=== PATIENT | female | born 1995 | race Caucasian/White ===

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

== ENCOUNTER 2020-12-18 14:01 | Emergency (ER) | payer OTHER ==
[2020-12-18 15:00] VITALS: BP 122/74; PULSE 61; RESP 16; TEMP 98.6
[2020-12-18] MEDS ORDERED: MORPHINE SULFATE 4 MG/ML SYRINGE IV STA (16:01)
[2020-12-18] MEDS ORDERED: ONDANSETRON 4 MG/2 ML VIAL IVP STA (16:01)
[2020-12-18] MEDS ORDERED: diphenhydrAMINE 50 MG/ML 1 ML VIAL IVP STA (16:01)
[2020-12-18] MEDS ORDERED: SODIUM CHLORIDE 0.9% 500 ML 500 ML IV STA (16:01)
--- NOTE | 2020-12-18 17:06 | ED ---
Headache HPI - General Chief Complaint: Headache Stated Complaint: Headache,R Arm/Face Numbness Time Seen by Provider: 12/18/20 15:53 Source: RN notes reviewed Mode of arrival: ambulatory Limitations: no limitations - History of Present Illness Initial Comments: Patient is a 25-year-old female that presents to emergency room complaining of migraine type headache. She notes that she has a history of chronic migraines. She notes she is a take Tylenol and alleviate symptoms and pain. She notes that that is not case this time. She notes that she's tried taking Tylenol with no relief. She notes that the pain is approximate 7-8 out of 10 with no relief. She notes that light makes the headache worse. She was otherwise a well- appearing 22-year-old female that her distress. She denied chest pain shortness of breath nausea vomiting diarrhea constipation fever fatigue chills. - Related Data Home Medications Medication Instructions Recorded Confirmed Acetaminophen Tab [Tylenol Tab] 1,000 mg PO Q6HR PRN 12/18/20 12/18/20 Allergies Allergy/AdvReac Type Severity Reaction Status Date / Time banana Allergy Rash/Hives Verified 12/18/20 16:53 carrot Allergy Anaphylaxis Verified 12/18/20 16:53 egg Allergy Rash/Hives Verified 12/18/20 16:53 milk Allergy Rash/Hives Verified 12/18/20 16:53 parsley Allergy Anaphylaxis Verified 12/18/20 16:53 walnut Allergy Rash/Hives Verified 12/18/20 16:53 Review of Systems ROS Statement: Those systems with pertinent positive or pertinent negative responses have been documented in the HPI. ROS Other: All systems not noted in ROS Statement are negative. Past Medical History Past Medical History: Asthma, Pneumonia, Seizure Disorder Additional Past Medical History / Comment(s): pt states she had a seizure x 1 year ago. History of Any Multi-Drug Resistant Organisms: None Reported Past Surgical History: No Surgical Hx Reported Past Anesthesia/Blood Transfusion Reactions: No Reported Reaction Past Psychological History: No Psychological Hx Reported Past Alcohol Use History: None Reported Past Drug Use History: None Reported - Past Family History Mother Family Medical History: No Reported History Additional Family Medical History / Comment(s): Migranes Father Family Medical History: Diabetes Mellitus, Hypertension Additional Family Medical History / Comment(s): Neuropathy General Exam Limitations: no limitations General appearance: alert, in no apparent distress, obese Head exam: Present: atraumatic, normocephalic, normal inspection Eye exam: Present: normal appearance, PERRL, EOMI. Absent: scleral icterus, conjunctival injection, periorbital swelling ENT exam: Present: normal exam, mucous membranes moist Neck exam: Present: normal inspection Respiratory exam: Present: normal lung sounds bilaterally. Absent: respiratory distress, wheezes, rales, rhonchi, stridor Cardiovascular Exam: Present: regular rate, normal rhythm, normal heart sounds. Absent: systolic murmur, diastolic murmur, rubs, gallop, clicks Extremities exam: Present: normal inspection, full ROM, normal capillary refill. Absent: tenderness, pedal edema, joint swelling, calf tenderness Neurological exam: Present: alert, oriented X3 Psychiatric exam: Present: normal affect, normal mood Skin exam: Present: warm, dry, intact, normal color. Absent: rash Course Vital Signs 12/18/20 14:57 Temperature 98.6 F Pulse Rate 61 Respiratory 16 Rate Blood Pressure 122/74 O2 Sat by Pulse 100 Oximetry Medical Decision Making - Medical Decision Making 22-year-old female complaining of chronic migraine headache with no relief from at home medications. 500 mL normal saline, 4 g Zofran, 50 mg of Benadryl, 4 mg of morphine ordered. Upon reevaluation patient states her headache is gone and she is need to go home. Case discussed with Dr. Kellogg, patient discharge home. Disposition Clinical Impression: Migraine headache Disposition: HOME SELF-CARE Condition: Stable Instructions (If sedation given, give patient instructions): Acute Headache (ED) Additional Instructions: Please return to the Emergency Department if symptoms worsen or any other concerns. Follow-up with primary care 1-2 days. Continue take at home medications as prescribed. Is patient prescribed a controlled substance at d/c from ED?: No Referrals: Breonna Augustin MD [Primary Care Provider] - 1-2 days Time of Disposition: 17:05
== END 2020-12-18 17:21 | disposition home or self-care (01) ==
LOC: EC 14:01
DX: G43.909 Migraine, unspecified, not intractable, without status migrainosus (principal); J45.909 Unspecified asthma, uncomplicated; E66.9 Obesity, unspecified; Z82.49 Family history of ischemic heart disease and other diseases of the circulatory system; Z83.3 Family history of diabetes mellitus; Z68.39 Body mass index [BMI] 39.0-39.9, adult
CPT/HCPCS: 96374; 96375 ×2; 96361; 99283; J2270; J1200; J2405

== ENCOUNTER 2022-03-26 17:57 | Emergency (ER) | payer OTHER ==
[2022-03-26 18:26] VITALS: TEMP 98.4
--- NOTE | 2022-03-26 18:28 | ED ---
Female Urogenital HPI - General Source: patient, RN notes reviewed Mode of arrival: ambulatory Limitations: no limitations - History of Present Illness MD Complaint: dysuria <Ally Feliciano - Last Filed: 03/26/22 18:24> <Anu Barajas - Last Filed: 03/27/22 03:14> - General Stated complaint: UTI, IUD Problems Time Seen by Provider: 03/26/22 18:24 - History of Present Illness Initial comments: This is a 26 year old female who presents to the emergency departments with concerns related to her IUD and a UTI. She has a paraguard IUD that was placed 5 years ago. States that over the last week, she has started to feel the IUD moving around. She has not had any problems with this until the last week. Also reports 2 days of burning with urination and is concerned that she may have a UTI. (Ally Feliciano) - Related Data Home Medications Medication Instructions Recorded Confirmed Acetaminophen Tab [Tylenol Tab] 1,000 mg PO Q6HR PRN 12/18/20 04/26/21 Rizatriptan Benzoate [Maxalt] 10 mg PO BID PRN 04/26/21 04/26/21 Previous Rx's Medication Instructions Recorded Cephalexin [Keflex] 500 mg PO Q12HR 7 Days #14 cap 03/26/22 Allergies Allergy/AdvReac Type Severity Reaction Status Date / Time banana Allergy Rash/Hives Verified 03/26/22 18:26 carrot Allergy Anaphylaxis Verified 03/26/22 18:26 egg Allergy Rash/Hives Verified 03/26/22 18:26 milk Allergy Rash/Hives Verified 03/26/22 18:26 parsley Allergy Anaphylaxis Verified 03/26/22 18:26 walnut Allergy Rash/Hives Verified 03/26/22 18:26 Review of Systems ROS Other: All systems not noted in ROS Statement are negative. <Ally Feliciano - Last Filed: 03/26/22 18:24> ROS Other: All systems not noted in ROS Statement are negative. <Anu Barajas - Last Filed: 03/27/22 03:14> ROS Statement: Those systems with pertinent positive or pertinent negative responses have been documented in the HPI. Past Medical History Past Medical History: Asthma, Pneumonia, Seizure Disorder Additional Past Medical History / Comment(s): pt states she had a seizure x 1 year ago. History of Any Multi-Drug Resistant Organisms: None Reported Past Surgical History: No Surgical Hx Reported Past Anesthesia/Blood Transfusion Reactions: No Reported Reaction Past Psychological History: No Psychological Hx Reported Smoking Status: Current every day smoker Past Alcohol Use History: None Reported Past Drug Use History: None Reported - Past Family History Mother Family Medical History: No Reported History Additional Family Medical History / Comment(s): Migranes Father Family Medical History: Diabetes Mellitus, Hypertension Additional Family Medical History / Comment(s): Neuropathy <Ally Feliciano - Last Filed: 03/26/22 18:24> General Exam Limitations: no limitations General appearance: alert, in no apparent distress Head exam: Present: atraumatic, normocephalic, normal inspection Eye exam: Present: normal appearance ENT exam: Present: normal exam, TM's normal bilaterally Neck exam: Present: normal inspection Respiratory exam: Present: normal lung sounds bilaterally. Absent: respiratory distress, wheezes, rales, rhonchi, stridor Cardiovascular Exam: Present: regular rate, normal rhythm, normal heart sounds. Absent: systolic murmur, diastolic murmur, rubs, gallop, clicks GI/Abdominal exam: Present: soft. Absent: distended, tenderness, guarding, rebound, rigid External exam: Present: other (Patient declined pelvic exam) Neurological exam: Present: alert, oriented X3, CN II-XII intact Psychiatric exam: Present: normal affect, normal mood Skin exam: Present: warm, dry, intact, normal color. Absent: rash <Anu Barajas - Last Filed: 03/27/22 03:14> Course Vital Signs 03/26/22 03/26/22 18:24 21:23 Temperature 98.4 F Pulse Rate 80 72 Respiratory 20 18 Rate Blood Pressure 139/92 122/68 O2 Sat by Pulse 98 98 Oximetry Medical Decision Making <Anu Barajas - Last Filed: 03/27/22 03:14> - Medical Decision Making Was pt. sent in by a medical professional or institution (, PA, STENOTYPIST, urgent care, hospital, or usp...) When possible be specific @ -[No] Did you speak to anyone other than the patient for history (EMS, parent, family, police, friend...)? What history was obtained from this source @ -[No] Did you review nursing and triage notes (agree or disagree)? Why? @ -[I reviewed and agree with nursing and triage notes] Were old charts reviewed (outside hosp., previous admission, EMS record, old EKG, old radiological studies, urgent care reports/EKG's, usp records)? Report findings @ -[No old charts were reviewed] Differential Diagnosis (chest pain, altered mental status, abdominal pain women, abdominal pain men, vaginal bleeding, weakness, fever, dyspnea, syncope, headache, dizziness, GI bleed, back pain, seizure, CVA, palpatations, mental health)? @ -Differential includes UTI, interstitial cystitis, PID, menstrual cramps EKG interpreted by me (3pts min.). @ -[As above] X-rays interpreted by me (1pt min.). @ -[None done] CT interpreted by me (1pt min.). @ -[None done] U/S interpreted by me (1pt. min.). @ -No, radiologist report is reviewed. IUD appears to be in low position within the uterus. Complex right ovarian follicle Ollie representing a involuting/hemorrhagic follicle. What testing was considered but not performed or refused? (CT, X-rays, U/S, labs)? Why? @ -[None] What meds were considered but not given or refused? Why? @ -[None] Did you discuss the management of the patient with other professionals (professionals i.e. , PA, STENOTYPIST, lab, RT, psych nurse, social media coordinator, diesel mechanic, te acher, risk officer, case packer and sealer)? Give summary @ -[No] Was smoking cessation discussed for >3mins.? @ -[No] Was critical care preformed (if so, how long)? @ -[No] Were there social determinants of health that impacted care today? How? (Homelessness, low income, unemployed, alcoholism, drug addiction, transportation, low edu. Level, literacy, decrease access to med. care, custodial, rehab)? @ -[No] Was there de-escalation of care discussed even if they declined (Discuss DNR or withdrawal of care, Hospice)? DNR status @ -[No] What co-morbidities impacted this encounter? (DM, HTN, Smoking, COPD, CAD, Cancer, CVA, ARF, Chemo, Hep., AIDS, mental health diagnosis, sleep apnea, morbid obesity)? @ -[None] Was patient admitted / discharged? Hospital course, mention meds given and route, prescriptions, significant lab abnormalities, going to OR and other pertinent info. @ -Patient is a 26-year-old female presenting with chief complaint of dysuria and concerns for her IUD. Patient reports 2 days of dysuria. She also states over the last week she has felt as though her IUD is moving, she has had a ParaGard IUD in place for the last 5 years. She is currently on her menstrual cycle. Physical examination is unremarkable. Patient declined pelvic exam. Urine shows blood as patient is on her menstrual cycle. There are WBCs, may be contaminated. Since patient is having symptoms we will treat with Keflex and sent for culture. HCG is negative. Transvaginal ultrasound shows that IUD is in low position within the uterus and close to the cervix. Patient is educated on these findings. She is instructed to follow-up with her [facility] Dr. Alfred. Prescription for Keflex sent to pharmacy. Discharged home. Follow-up with PCP. Report back to ER with any new or worsening symptoms. Discussed return parameters and answered all questions. Patient conveyed verbal understanding and agreed to the plan. I discussed this case in detail with my attending Dr. Montoya Undiagnosed new problem with uncertain prognosis? @ -[No] Drug Therapy requiring intensive monitoring for toxicity (Heparin, Nitro, Insulin, Cardizem)? @ -[No] Were any procedures done? @ -[No] Diagnosis/symptom? @ -UTI Acute, or Chronic, or Acute on Chronic? @ -Acute Uncomplicated (without systemic symptoms) or Complicated (systemic symptoms)? @ -Uncomplicated Side effects of treatment? @ -[No] Exacerbation, Progression, or Severe Exacerbation? @ -[No] Poses a threat to life or bodily function? How? (Chest pain, [place], [place], pneumonia, PE, COPD, DKA, ARF, appy, cholecystitis, CVA, Diverticulitis, Homicidal, Suicidal, threat to staff... and all critical care pts) @ -[No] (Anu Barajas) - Lab Data Lab Results 03/26/22 03/26/22 Range/Units 18:38 18:38 Urine Color Red Urine Appearance Bloody H (Clear) Urine RBC >182 H (0-5) /hpf Urine WBC >182 H (0-5) /hpf Urine WBC Clumps Many H (None) /hpf Ur Squamous Epith Cells 18 H (0-4) /hpf Urine Bacteria Occasional H (None) /hpf Urine HCG, Qual Not Detected (Not Detectd) Disposition <Ally Feliciano - Last Filed: 03/26/22 18:24> Is patient prescribed a controlled substance at d/c from ED?: No Time of Disposition: 21:16 <Anu Barajas - Last Filed: 03/27/22 03:14> Clinical Impression: UTI (urinary tract infection) Disposition: HOME SELF-CARE Condition: Good Instructions (If sedation given, give patient instructions): Intrauterine Device (DC) Additional Instructions: Follow up with [facility]. Report back to ER with any new or worsening symptoms. Take medication as prescribed. Prescriptions: Cephalexin [Keflex] 500 mg PO Q12HR 7 Days #14 cap Referrals: Breonna Augustin MD [Primary Care Provider] - 1-2 days Fozia Alfred DO [Doctor of Osteopathic Medicine] - 1-2 days
[2022-03-26 19:03] LABS: Appearance,Urine Bloody (Clear); Color,Urine Red
[2022-03-26 19:04] LABS: Bacteria,Urine Occasional /hpf; RBC,Urine >182 /hpf (0-5); Squamous Epithelial Cell,Urine 18 /hpf (0-4); WBC,Urine >182 /hpf (0-5)
--- NOTE | 2022-03-26 20:56 | US ---
EXAMINATION TYPE: US transvaginal DATE OF EXAM: 03/26/2022 COMPARISON: NONE CLINICAL HISTORY: IUD feels out of place. Pt states she feels like her IUD strings are lower than nor mal. IUD has been placed for about 5 years. TECHNIQUE: . Transvaginal sonographic images of the pelvis were acquired. Date of LMP: Irregular EXAM MEASUREMENTS: Uterus: 9.2 x 5.6 x 4.7 cm Endometrial Stripe: 0.48 cm Right Ovary: 3.5 x 3.1 x 2.3 cm Left Ovary: 3.3 x 2.5 x 2.4 cm 1. Uterus: Anteverted wnl 2. Endometrium: wnl 3. Right Ovary: Complex follicle seen measuring 1.6 x 1.2 x 1.0cm 4. Left Ovary: wnl Spectral, color and waveform doppler imaging shows good arterial and venous flow within the ovaries ; there is no evidence for ovarian torsion. 5. Bilateral Adnexa: wnl 6. Posterior cul-de-sac: Trace amount of fluid IUD appears to be in the lower segment and close to the cervix. IMPRESSION: IUD appears to be in low position within the uterus. Complex right ovarian follicle likely representing a involuting/hemorrhagic follicle.
[2022-03-26] MEDS ORDERED: CEPHALEXIN 500 MG CAP PO STA (21:14)
[2022-03-26 21:25] VITALS: BP 122/68; PULSE 72; RESP 18
== END 2022-03-26 21:25 | disposition home or self-care (01) ==
LOC: EC 17:57
DX: N39.0 Urinary tract infection, site not specified (principal); J45.909 Unspecified asthma, uncomplicated; F17.200 Nicotine dependence, unspecified, uncomplicated; Z91.018 Allergy to other foods
CPT/HCPCS: 76830; 81001; 81025; 87086; 93975; 99284

== ENCOUNTER 2022-06-07 21:58 | Inpatient (IN) | payer MEDICAID, OTHER ==
--- NOTE | 2022-06-07 23:45 | ED ---
Psych HPI - General Chief Complaint: Psychiatric Symptoms Stated Complaint: Mental Health Time Seen by Provider: 06/07/22 22:07 Source: patient, RN notes reviewed Mode of arrival: ambulatory Limitations: no limitations - History of Present Illness Initial Comments: This is a 26-year-old female who presents to the emergency department for psychiatric evaluation. Patient endorses suicidal ideations with a plan that has been present over the last 3 months to one year. Patient states that she has made prior suicide attempts by trying to cut herself and overdosing on ibuprofen and Tylenol. She has not told anyone until recently out of concern for losing her 5-year-old son. Her mom notes that she frequently texts her saying that she can't do this anymore and that she can't go on. When her mom went over to her house today, she pulled out a knife and eluted to the idea of harming herself with it. Patient states that at this point she feels like she cannot take care of herself and does not feel safe going home. Denies any homicidal ideations or auditory/visual hallucinations. Denies any fevers, chills, sore throat, cough, dyspnea, chest pain, palpitations, abdominal pain, nausea, vomiting, diarrhea, back pain, or headaches. MD Complaint: suicidal ideation, feels depressed - Related Data Home Medications Medication Instructions Recorded Confirmed Acetaminophen Tab [Tylenol Tab] 1,000 mg PO Q6HR PRN 12/18/20 04/26/21 Rizatriptan Benzoate [Maxalt] 10 mg PO BID PRN 04/26/21 04/26/21 Previous Rx's Medication Instructions Recorded Cephalexin [Keflex] 500 mg PO Q12HR 7 Days #14 cap 03/26/22 Allergies Allergy/AdvReac Type Severity Reaction Status Date / Time banana Allergy Rash/Hives Verified 06/07/22 22:06 carrot Allergy Anaphylaxis Verified 06/07/22 22:06 egg Allergy Rash/Hives Verified 06/07/22 22:06 milk Allergy Rash/Hives Verified 06/07/22 22:06 parsley Allergy Anaphylaxis Verified 06/07/22 22:06 walnut Allergy Rash/Hives Verified 06/07/22 22:06 Review of Systems ROS Statement: Those systems with pertinent positive or pertinent negative responses have been documented in the HPI. ROS Other: All systems not noted in ROS Statement are negative. Past Medical History Past Medical History: Asthma, Pneumonia, Seizure Disorder Additional Past Medical History / Comment(s): pt states she had a seizure x 1 year ago. History of Any Multi-Drug Resistant Organisms: None Reported Past Surgical History: No Surgical Hx Reported Past Anesthesia/Blood Transfusion Reactions: No Reported Reaction Past Psychological History: Anxiety, Depression Smoking Status: Current every day smoker Past Alcohol Use History: Occasional Past Drug Use History: Marijuana - Past Family History Mother Family Medical History: No Reported History Additional Family Medical History / Comment(s): Migranes Father Family Medical History: Diabetes Mellitus, Hypertension Additional Family Medical History / Comment(s): Neuropathy General Exam Limitations: no limitations General appearance: alert, in no apparent distress Head exam: Present: atraumatic, normocephalic, normal inspection Respiratory exam: Present: normal lung sounds bilaterally. Absent: respiratory distress, wheezes, rales, rhonchi, stridor Cardiovascular Exam: Present: regular rate, normal rhythm, normal heart sounds. Absent: systolic murmur, diastolic murmur, rubs, gallop, clicks Neurological exam: Present: alert, oriented X3, CN II-XII intact Psychiatric exam: Present: depressed, suicidal ideation. Absent: homicidal ideation Skin exam: Present: warm, dry, intact, normal color. Absent: rash Course Vital Signs 06/07/22 22:01 Temperature 97.3 F L Pulse Rate 75 Respiratory 20 Rate Blood Pressure 151/88 O2 Sat by Pulse 99 Oximetry Medical Decision Making - Medical Decision Making This is a 26-year-old female who presents to the emergency department for psychiatric evaluation. Was pt. sent in by a medical professional or institution? @ -No Did you speak to anyone other than the patient for history? @ -Her mother Did you review nursing and triage notes? @ -Yes, and I agree, it is accurate with regards to the patient's symptoms. Were old charts reviewed? @ -No Differential Diagnosis? @ -Differential Mental Health: Depression, anxiety, bipolar, psychosis, schizophrenia, borderline personality, situational depression, adjustment disorder, behavioral disorder, brain tumor, malingering, substance abuse, encephalopathy, medication reaction, dementia, hypothyroidism, degenerative neurologic disorder, lupus.... This is not meant to be all-inclusive list What testing was considered but not performed? (CT, X-rays, U/S, labs)? Why? @ -None What meds were considered but not given? Why? @ -None Did you discuss the management of the patient with other professionals? @ -Yes, EPS, who advises inpatient psychiatric management. Did you reconcile home meds? @ -No Was smoking cessation discussed for >3mins.? @ -No Was critical care preformed (if so, how long)? @ -No Were there social determinants of health that impacted care today? How? (Homelessness, low income, unemployed, alcoholism, drug addiction, transportation, low edu. Level, literacy, decrease access to med. care, long-term, rehab)? @ -No Was there de-escalation of care discussed even if they declined? (Discuss DNR or withdrawal of care, Hospice)? @ -No What co-morbidities impacted this encounter? (DM, HTN, Smoking, COPD, CAD, Cancer, CVA, Hep., AIDS, mental health diagnosis, sleep apnea, morbid obesity)? @ -None Was patient admitted / discharged? @ -Admitted. Patient's BAT was 0 and she was medically cleared for EPS evaluation. EPS determined the patient to meet inpatient psychiatric admission criteria. I am in agreement with this due to her active suicidal ideations. Patient admitted to [facility] on a voluntary basis. Undiagnosed new problem with uncertain prognosis? @ -None Drug Therapy requiring intensive monitoring for toxicity (Heparin, Nitro, Insulin, Cardizem)? @ -None Were any procedures done? @ -None Diagnosis/symptom? @ -Suicidal ideations Acute, or Chronic, or Acute on Chronic? @ -Acute Uncomplicated (without systemic symptoms) or Complicated (systemic symptoms)? @ -Complicated Side effects of treatment? @ -None Exacerbation, Progression, or Severe Exacerbation] @ -Not applicable Poses a threat to life or bodily function? @ -Yes This case was discussed in detail with the attending ED physician, Dr. Vegas. Presentation, findings, and treatment plan discussed in detail as well. - Lab Data Lab Results 06/08/22 Range/Units 02:32 Coronavirus (PCR) Not Detected (Not Detectd) Disposition Clinical Impression: Suicidal ideation, Depression Disposition: ADMITTED IP TO THIS HOSP Referrals: Breonan Augustin MD [Primary Care Provider] - 1-2 days
[2022-06-08] MEDS ORDERED: MAG HYDROX/AL HYDROX/SIMETH 30 ML CUP PO PRN (03:41)
[2022-06-08] MEDS ORDERED: MAGNESIUM HYDROXIDE 2,400 MG/10 ML CUP PO PRN (03:41)
[2022-06-08] MEDS ORDERED: ACETAMINOPHEN TAB 325 MG TAB PO PRN (03:41)
[2022-06-08] MEDS ORDERED: LORazepam 2 MG/ML INJ IM PRN (03:43)
[2022-06-08] MEDS ORDERED: HALOPERIDOL LACTATE 5 MG/ML 1 ML VIAL IM PRN (03:45)
[2022-06-08] MEDS ORDERED: haloperidoL 5 MG TAB PO PRN (03:45)
[2022-06-08 03:46] LABS: Appearance,Urine Cloudy (Clear); Bilirubin,Urine 1+ (Negative); Blood,Urine Small (Negative); Color,Urine Yellow; Glucose,Urine (UA) Negative (Negative); Ketones,Urine 3+ (Negative); Leukocyte Esterase,Urine Large (Negative); Mucus,Urine Many /hpf; Nitrite,Urine Negative (Negative); Protein,Urine 1+ (Negative); RBC,Urine 26 /hpf (0-5); Specific Gravity,Urine 1.032 (1.001-1.035); Squamous Epithelial Cell,Urine 17 /hpf (0-4); WBC,Urine 76 /hpf (0-5)
[2022-06-08 03:53] LABS: Amphetamine Screen,Urine Not Detected (NotDetected); Barbiturate Screen,Urine Not Detected (NotDetected); Benzodiazepines Screen,Urine Not Detected (NotDetected); Cocaine Screen,Urine Not Detected (NotDetected); Methadone Screen, Urine Not Detected (NotDetected); Opiate Screen,Urine Not Detected (NotDetected); Oxycodone Screen, Urine Not Detected (NotDetected); Phencyclidine Screen,Urine Not Detected (NotDetected); Tricyclic Antidepressant,Urine Not Detected (NotDetected); Urn Cannabinoid Scrn Detected (NotDetected)
[2022-06-08] MEDS: NICOTINE 21MG/24HR PATCH TRANSDERM SCH (08:14)
--- NOTE | 2022-06-08 12:06 | P.HP ---
Psychiatric H&P - . H&P Date: 06/08/22 History & Physical: Allergies Allergy/AdvReac Type Severity Reaction Status Date / Time banana Allergy Rash/Hives Verified 06/08/22 04:54 carrot Allergy Anaphylaxis Verified 06/08/22 04:54 egg Allergy Rash/Hives Verified 06/08/22 04:54 milk Allergy Rash/Hives Verified 06/08/22 04:54 parsley Allergy Anaphylaxis Verified 06/08/22 04:54 walnut Allergy Rash/Hives Verified 06/08/22 04:54 Vital Signs Temp 98.7 F 06/08/22 04:55 Pulse 76 06/08/22 04:55 Resp 16 06/08/22 04:55 BP 154/101 06/08/22 04:55 Pulse Ox 98 06/08/22 04:55 FiO2 Intake & Output 06/07/22 06/08/22 06/08/22 18:59 06:59 18:59 Weight 84.005 kg Laboratory Last Values Urine Color Yellow 06/08/22 02:54 Urine Appearance Cloudy (Clear) H 06/08/22 02:54 Urine pH 6.0 (5.0-8.0) 06/08/22 02:54 Ur Specific [place] 1.032 (1.001-1.035) 06/08/22 02:54 Urine Protein 1+ (Negative) H 06/08/22 02:54 Urine Glucose (UA) Negative (Negative) 06/08/22 02:54 Urine Ketones 3+ (Negative) H 06/08/22 02:54 Urine Blood Small (Negative) H 06/08/22 02:54 Urine Nitrite Negative (Negative) 06/08/22 02:54 Urine Bilirubin 1+ (Negative) H 06/08/22 02:54 Urine Urobilinogen 6.0 mg/dL (<2.0) 06/08/22 02:54 Ur Leukocyte Esterase Large (Negative) H 06/08/22 02:54 Urine RBC 26 /hpf (0-5) H 06/08/22 02:54 Urine WBC 76 /hpf (0-5) H 06/08/22 02:54 Ur Squamous Epith Cells 17 /hpf (0-4) H 06/08/22 02:54 Urine Mucus Many /hpf (None) H 06/08/22 02:54 Urine HCG, Qual Not Detected (Not Detectd) 06/08/22 02:54 Urine Opiates Screen Not Detected (NotDetected) 06/08/22 02:54 Ur Oxycodone Screen Not Detected (NotDetected) 06/08/22 02:54 Urine Methadone Screen Not Detected (NotDetected) 06/08/22 02:54 Ur Propoxyphene Screen Not Detected (NotDetected) 06/08/22 02:54 Ur Barbiturates Screen Not Detected (NotDetected) 06/08/22 02:54 U Tricyclic Antidepress Not Detected (NotDetected) 06/08/22 02:54 Ur Phencyclidine Scrn Not Detected (NotDetected) 06/08/22 02:54 Ur Amphetamines Screen Not Detected (NotDetected) 06/08/22 02:54 U Methamphetamines Scrn Not Detected (NotDetected) 06/08/22 02:54 U Benzodiazepines Scrn Not Detected (NotDetected) 06/08/22 02:54 Urine Cocaine Screen Not Detected (NotDetected) 06/08/22 02:54 U Marijuana (THC) Screen Detected (NotDetected) H 06/08/22 02:54 Coronavirus (PCR) Not Detected (Not Detectd) 06/08/22 02:32 06/08/22 11:55 IDENTIFYING DATA: Patient is a 26 yo female, currebtly lives with her 5 yr old son, in a mobile home. unemployed. HPI: Patient presented to the hospital yesterday for psychiatric evaluation. Patient apparently was suicidal, depressed at home, she got into an arguemnt with her mother. she has been apparently feeling this way for the past 3 months and apparently has attempted suicide by cutting and ODing on pills a few weeks ago. her UDS was posivite for thc. she was voluntary on the unit. she was fairly hesistant and slowed psychotmotor movements. she had poverty of content and speech. slow to respond and hesitant. she has poor insight and judgment, poor eye contact. she was fairly vague about her need for being in the hopsital and was hesitant about treatment, she stated that "if I don't do what I'm supposed to do and I'm going to lose my kids". She claims that she is feeling hopeless. She did mention suicidal thoughts however no plan today. Denying any homicidal ideations. States that her sleep has been poor, appetite is been on and off. At this time patient denies any visual hallucinations. He states that she is hearing voices telling her that she is "worthless and not good enough". Patient denies any flight of ideas racing thoughts and increased in goal directed behavior. Patient admits to using marijuana frequently and cigarettes daily. Denying any other recreational drug use. PAST PSYCHIATRIC HISTORY: Patient states that she has no previous psychiatric history or diagnosis. Patient denies being on any psychiatric medications. Patient denies any previous psychiatric hospitalizations. Patient denies any psychiatric outpatient follow-up. He did claim that she attempted suicide multiple times before but "failed". Past Medical History: Asthma, Pneumonia, Seizure Disorder Additional Past Medical History / Comment(s): pt states she had a seizure x 1 year ago. History of Any Multi-Drug Resistant Organisms: None Reported Past Surgical History: No Surgical Hx Reported Past Anesthesia/Blood Transfusion Reactions: No Reported Reaction Past Psychological History: Anxiety, Depression Smoking Status: Current every day smoker Past Alcohol Use History: Occasional Past Drug Use History: Marijuana ALLERGIES: as per EMR CHEMICAL DEPENDENCY HISTORY: as per HPI FAMILY PSYCHIATRIC/SUBSTANCE USE HISTORY: denies SOCIAL HISTORY: Patient was born and raised in [facility] and claims that she now lives in [place]. She lives in a mobile home with her 5-year-old son. She states that she is unemployed. Denying any legal history. MENTAL STATUS EXAM: General Appearance: Patient appears to be overweight, short in stature, stated age is alert, hesitant and slowed psychomotor functioning. Patient appears to have poor hygiene and grooming. Behavior: Patient is seated without any agitated behavior. Poor eye contact. Slowed movements. Speech: Patient's speech is fluent and nonpressured. Hesitant. Soft tone of voice. [place] Mood/Affect: Patient reports their mood is depressed and anxious, affect is congruent and constricted. Suicidality/Homicidality: Patient denies having any homicidal ideation intent or plan. With passive suicidal thoughts, no intent or plan. Perceptions: Patient denies any visual hallucinations and denies any auditory hallucinations Though content/process: [place], hesitant. Poverty of speech and thought. Thought blocking. No delusions. Memory and concentration: AOX3, grossly intact for the purposes of this session. Can spell "WORLD" backwards Judgment and insight: poor STRENGTHS/WEAKNESSES: strength is that patient is resilient. Weakness is that patient has poor judgment and is impulsive INTELLECT: average IMPRESSIONS: Major depressive disorder, severe with psychotic features Cannabis use disorder Nicotine dependence PLAN: -Patient is admitted under voluntary status to MHU for stabilization of psychiatric symptoms and safety. Patient has signed adult voluntary form and medication consent and is placed in patient's chart. -Medications : Will start patient on Prozac 20 mg daily for mood/anxiety, Zyprexa 2.5 mg daily at bedtime for mood adjunct/insomnia/psychosis. -Ativan and Haldol PRN for agitation/aggression -Patient was counselled on substance abuse and desired to cut back on use -Patient was informed of the risks, benefits and side effects of the medication and patient verbally consented to taking the medications. Patient signed med consent form and was placed in chart. -Internal Medicine consult to perform medical evaluation and physical. -NRT - nicotine patch -SW on board for discharge planning. Encourage patient to participate in groups to work on coping skills. 06/08/22 11:57
[2022-06-08 12:27] LABS: Basophils # (A) 0.1 k/uL (0-0.2); Basophils % (A) 1 %; Eosinophils # (A) 0.3 k/uL (0-0.7); Eosinophils % (A) 2 %; HCT 45.8 % (34.0-46.0); HGB 15.3 gm/dL (11.4-16.0); Lymphocytes # (A) 2.1 k/uL (1.0-4.8); Lymphocytes % (A) 15 %; MCH 29.4 pg (25.0-35.0); MCHC 33.4 g/dL (31.0-37.0); MCV 87.9 fL (80.0-100.0); Mean Platelet Volume 7.8; Monocytes % (A) 7 %; Neutrophils % (A) 74 %; Platelet Count 457 k/uL (150-450); RBC 5.21 m/uL (3.80-5.40); RDW 13.7 % (11.5-15.5); WBC 13.4 k/uL (3.8-10.6)
[2022-06-08] MEDS: FLUoxetine HCL 20 MG CAP PO SCH (12:41)
[2022-06-08 12:45] LABS: ALT 29 U/L (4-34); AST 23 U/L (14-36); African American GFR (CKD) >90 (>60 ml/min/1.73 sqM); Albumin 4.5 g/dL (3.5-5.0); Alkaline Phosphatase 83 U/L (38-126); Anion Gap 13 mmol/L; Bilirubin, Delta 0.4 mg/dL (0.0-0.2); Bilirubin,Unconjugated 0.5 mg/dL (0.0-1.1); Blood Urea Nitrogen 10 mg/dL (7-17); Calcium 9.8 mg/dL (8.4-10.2); Carbon Dioxide 22 mmol/L (22-30); Chloride 105 mmol/L (98-107); Glucose 95 mg/dL (74-99); Non-African American GFR(CKD) >90 (>60 ml/min/1.73 sqM); Potassium 4.6 mmol/L (3.5-5.1); Sodium 140 mmol/L (137-145); Total Bilirubin 0.9 mg/dL (0.2-1.3); Total Protein 7.6 g/dL (6.3-8.2)
[2022-06-08 22:42] LABS: Chol/HDL Ratio 5.03 Ratio; LDL Cholesterol,Calculated 114.4 mg/dL (0.0-131.0)
[2022-06-08] MEDS: OLANZapine 2.5 MG TAB PO SCH (22:50)
--- NOTE | 2022-06-09 01:35 | P.CONS ---
History of Present Illness - Reason for Consult Consult date: 06/09/22 - History of Present Illness The patient is a 36-year-old female would presented to the emergency room with depression and suicidal ideation. The patient was admitted to the mental health unit where she was seen and evaluated. The patient was not forthcoming and did not answer most questions. She had a guarded affect throughout the interview and repeatedly said that she is not supposed to be here and asked when she can be discharged. She denied any physical complaints at the time of interview. The patient denied experiencing chest discomfort, shortness of breath, fever, chills, cough, nausea, vomiting, abdominal pain, diarrhea. Patient denied using illicit substances or alcohol. Also denied tobacco use. Review of systems: Pertinent positives and negatives as discussed in HPI, a complete review of systems was performed and all other systems are negative. Physical examination: (Performed with a mental health director community center present) General: non toxic, no distress, appears at stated age, obese Derm: no unusual rashes/lesions, no unusual ecchymoses, warm, dry Head: atraumatic, normocephalic, symmetric Eyes: EOMI, no lid lag, anicteric sclera ENT: Nose and ears atraumatic, no thrush, no pharyngeal erythema Neck: trachea midline, supple Mouth: no lip lesion, mucus membranes moist Cardiovascular: S1S2 reg, no murmur, no edema Lungs: CTA bilateral, no rhonchi, no rales , no accessory muscle use Abdominal: soft, nontender to palpation, no guarding Ext: no gross muscle atrophy, no contractures, Neuro: No gross focal neuro deficits noted Psych: Alert, oriented, flat affect Assessment: Abnormal UA Marijuana abuse Depression with suicidal ideation Imaging: None performed Data Review: Laboratory evaluation revealed leukocytosis of 13.4, platelets 457, sodium 140, potassium 4.6, BUN 10, creatinine 0.72, UA consistent with UTI, with urine toxicology positive for marijuana. Plan: Patient denied urinary complaints, likely colonization. Hold off on antibiotics Advised patient on importance of marijuana use cessation Defer management of depression and suicidal ideation to primary psychiatry service Leukocytosis likely secondary to acute stressor. No sign of active infection at this time Thank you for allowing us to participate in the care of this patient. We will follow peripherally. Do not hesitate to contact us with questions. Someone can be reached from the [facility] hospitalist group at all hours of the day at [phone]. Past Medical History Past Medical History: Asthma, Pneumonia, Seizure Disorder Additional Past Medical History / Comment(s): pt states she had a seizure x 1 year ago. History of Any Multi-Drug Resistant Organisms: None Reported Past Surgical History: No Surgical Hx Reported Past Anesthesia/Blood Transfusion Reactions: No Reported Reaction Smoking Status: Current every day smoker - Past Family History Mother Family Medical History: No Reported History Additional Family Medical History / Comment(s): Migranes Father Family Medical History: Diabetes Mellitus, Hypertension Additional Family Medical History / Comment(s): Neuropathy Medications and Allergies Home Medications Medication Instructions Recorded Confirmed Type Acetaminophen Tab [Tylenol Tab] 1,000 mg PO Q6HR PRN 12/18/20 04/26/21 History Rizatriptan Benzoate [Maxalt] 10 mg PO BID PRN 04/26/21 04/26/21 History Cephalexin [Keflex] 500 mg PO Q12HR 7 Days #14 cap 03/26/22 Rx Allergies Allergy/AdvReac Type Severity Reaction Status Date / Time banana Allergy Rash/Hives Verified 06/08/22 04:54 carrot Allergy Anaphylaxis Verified 06/08/22 04:54 egg Allergy Rash/Hives Verified 06/08/22 04:54 milk Allergy Rash/Hives Verified 06/08/22 04:54 parsley Allergy Anaphylaxis Verified 06/08/22 04:54 walnut Allergy Rash/Hives Verified 06/08/22 04:54 Physical Exam Vitals: Vital Signs Temp Pulse Resp BP Pulse Ox 06/08/22 04:55 98.7 F 76 16 154/101 98 Results CBC & Chem 7: 06/08/22 11:39 06/08/22 11:39 Labs: Abnormal Lab Results - Last 24 Hours (Table) 06/08/22 06/08/22 06/08/22 Range/Units 02:54 11:39 11:39 WBC 13.4 H (3.8-10.6) k/uL Plt Count 457 H (150-450) k/uL Neutrophils # 10.0 H (1.3-7.7) k/uL Delta Bilirubin 0.4 H (0.0-0.2) mg/dL HDL Cholesterol 33.60 L (40.00-60.00) mg/dL Urine Appearance Cloudy H (Clear) Urine Protein 1+ H (Negative) Urine Ketones 3+ H (Negative) Urine Blood Small H (Negative) Urine Bilirubin 1+ H (Negative) Ur Leukocyte Esterase Large H (Negative) Urine RBC 26 H (0-5) /hpf Urine WBC 76 H (0-5) /hpf Ur Squamous Epith Cells 17 H (0-4) /hpf Urine Mucus Many H (None) /hpf U Marijuana (THC) Screen Detected H (NotDetected) Microbiology - Last 24 Hours (Table) 06/08/22 02:54 Urine Culture - Preliminary Urine,Voided
[2022-06-09] MEDS: FLUoxetine HCL 20 MG CAP PO SCH (08:52)
[2022-06-09] MEDS: NICOTINE 21MG/24HR PATCH TRANSDERM SCH (08:52)
--- NOTE | 2022-06-09 10:25 | P.PN ---
Progress Note - Text Progress Note Date: 06/09/22 Interval history: Patient was seen sitting in on group today and appeared to be smiling and was directable and agreeable to speak to sports writer in the office. she continus to smile innappropriately and even more hesistant today about questions during the interview. she states that she did not take the medication last night. she did not answer when sports writer asked her why she has been refusing. she seemed to have poor concentration. she states that she is doing "fine" and was requesting to be discharged. she apparently was up for most of the night. she is denying any Si or HI and denying any Ah or VH. Mental status exam: General Appearance: Patient appears to be overweight, short in stature, stated age is alert, hesitant and slowed psychomotor functioning. Patient appears to have improving hygiene and grooming. Behavior: Patient is seated without any agitated behavior. Poor eye contact. S lowed movements. Speech: Patient's speech is fluent and nonpressured. Hesitant. Soft tone of voice. Mood/Affect: Patient reports their mood is "fine", affect is incongruent\\ Suicidality/Homicidality: Patient denies having any homicidal ideation intent or plan. With passive suicidal thoughts, no intent or plan. Perceptions: Patient denies any visual hallucinations and denies any auditory hallucinations Though content/process: [place], hesitant. Poverty of speech and thought. Thought blocking. No delusions. Memory and concentration: AOX3, grossly intact for the purposes of this session Judgment and insight: poor IMPRESSIONS: Major depressive disorder, severe with psychotic features Cannabis use disorder Nicotine dependence PLAN: -Patient is admitted under voluntary status to MHU for stabilization of psychiatric symptoms and safety. Patient has signed adult voluntary form and medication consent and is placed in patient's chart. -Medications : continue Prozac 20 mg daily for mood/anxiety, Zyprexa 2.5 mg daily at bedtime for mood adjunct/insomnia/psychosis. patient has been refusing however states that she will take them today. -Ativan and Haldol PRN for agitation/aggression -NRT - nicotine patch -SW on board for discharge planning. Encourage patient to participate in groups to work on coping skills. if patient continues to refuse treatment then will look at filing for involuntary tomorrow
[2022-06-09] MEDS: OLANZapine 2.5 MG TAB PO SCH (22:12)
--- NOTE | 2022-06-10 09:45 | P.PN ---
Progress Note - Text Progress Note Date: 06/10/22 Interval history: Patient was seen wandering outside of her room today smiling and acting inappr opriately. Patient was agreeable to speak to blog writer in the office today. Patient continues to have poverty of content and thoughts. Continues to have poor eye contact. She smiled at times to blog writer inappropriately. She admitted to not taking her medications because "I don't need them". She continues to have very poor insight and judgment. She did not take her Zyprexa as well last night. Continues to be focused on going home and also minimized her need for medications and hospitalization. Continues to have long pauses between answering questions. she seemed to have poor concentration. she states that she is doing "fine". she is denying any Si or HI and denying any Ah or VH. Mental status exam: General Appearance: Patient appears to be overweight, short in stature, stated age is alert, hesitant and slowed psychomotor functioning. Patient appears to have improving hygiene and grooming. Behavior: Patient is seated without any agitated behavior. Poor eye contact. Slowed movements. Speech: Patient's speech is fluent and nonpressured. Hesitant. Soft tone of voice. Mood/Affect: Patient reports their mood is "fine", affect is incongruent\\ Suicidality/Homicidality: Patient denies having any homicidal ideation intent or plan. Denying any suicidal thoughts, no intent or plan. Perceptions: Patient denies any visual hallucinations and denies any auditory hallucinations Though content/process: [place], hesitant. Poverty of speech and thought. Thought blocking. No delusions. Memory and concentration: AOX3, grossly intact for the purposes of this session Judgment and insight: poor IMPRESSIONS: Major depressive disorder, severe with psychotic features Cannabis use disorder Nicotine dependence PLAN: -Patient is admitted under voluntary status to MHU for stabilization of psychiatric symptoms and safety. Patient has signed adult voluntary form and medication consent and is placed in patient's chart. -Medications : continue Prozac 20 mg daily for mood/anxiety, Zyprexa 2.5 mg daily at bedtime for mood adjunct/insomnia/psychosis. patient has been refusing medications. -Ativan and Haldol PRN for agitation/aggression -NRT - nicotine patch -SW on board for discharge planning. Encourage patient to participate in groups to work on coping skills. will be filing for involuntary today as patient is not taking medications.
[2022-06-10] MEDS: NICOTINE 21MG/24HR PATCH TRANSDERM SCH (11:18)
[2022-06-10] MEDS: FLUoxetine HCL 20 MG CAP PO SCH (11:18)
[2022-06-10] MEDS: OLANZapine 2.5 MG TAB PO SCH (20:44)
[2022-06-11] MEDS: AMOXIC-POT CLAV 875-125MG 1 EACH TAB PO SCH ×2 (09:12→20:30)
[2022-06-11] MEDS: NICOTINE 21MG/24HR PATCH TRANSDERM SCH ×2 (09:12→09:29)
[2022-06-11] MEDS: FLUoxetine HCL 20 MG CAP PO SCH (09:12)
--- NOTE | 2022-06-11 09:25 | P.PN ---
Progress Note - Text Progress Note Date: 06/11/22 Interval history: Patient was seen today wandering outside of her room near the nurses desk and was agreeable to speak to check writer in the office today. Patient continues to have poverty of content and thoughts. she took her prozac this morning but did not take the night time medication zyprexa. Continues to have poor eye contact and smiles at times innappropriately. continues to be concrete. She continues to have very poor insight and judgment. Continues to have long pauses between answering questions. claims that she slept fairly. she seemed to have poor concentration. she states that she is doing "fine". she is denying any Si or HI and denying any Ah or VH. Mental status exam: General Appearance: Patient appears to be overweight, short in stature, stated age is alert, hesitant and slowed psychomotor functioning. Patient appears to have improving hygiene and grooming. Behavior: Patient is seated without any agitated behavior. Poor eye contact. Slowed movements. Speech: Patient's speech is fluent and nonpressured. Hesitant. Soft tone of voice. Mood/Affect: Patient reports their mood is "ok", affect is incongruent\\ Suicidality/Homicidality: Patient denies having any homicidal ideation intent or plan. Denying any suicidal thoughts, no intent or plan. Perceptions: Patient denies any visual hallucinations and denies any auditory hallucinations Though content/process: [place], hesitant. Poverty of speech and thought. Thought blocking. No delusions. Memory and concentration: AOX3, grossly intact for the purposes of this session Judgment and insight: poor IMPRESSIONS: Major depressive disorder, severe with psychotic features Cannabis use disorder Nicotine dependence PLAN: -Patient is admitted under voluntary status to MHU for stabilization of psychiatric symptoms and safety. Patient has signed adult voluntary form and medication consent and is placed in patient's chart. -Medications : continue Prozac 20 mg daily for mood/anxiety, change Zyprexa with abilify 5 mg daily for mood adjunct/insomnia/psychosis. patient has been refusing medications. -Ativan and Haldol PRN for agitation/aggression -NRT - nicotine patch -SW on board for discharge planning. Encourage patient to participate in groups to work on coping skills. awaiting deferral and court hearing date.
[2022-06-11] MEDS: ARIPiprazole 5 MG TAB PO SCH (09:34)
[2022-06-12] MEDS: NICOTINE 21MG/24HR PATCH TRANSDERM SCH (09:17)
[2022-06-12] MEDS: FLUoxetine HCL 20 MG CAP PO SCH ×2 (09:17→09:33)
[2022-06-12] MEDS: ARIPiprazole 5 MG TAB PO SCH ×2 (09:17→09:34)
[2022-06-12] MEDS: AMOXIC-POT CLAV 875-125MG 1 EACH TAB PO SCH ×3 (09:17→19:59)
--- NOTE | 2022-06-12 14:27 | P.PN ---
Progress Note - Text Progress Note Date: 06/12/22 Interval history: Patient was seen today wandering the hallways and smiling inappropriately. Reg lyons made several eye contact towards copywriter and when copywriter approached her to the interview today patient looked away and did not respond. She was asked several times if she wanted to speak to copywriter and continued to smile inappropriately and did not answer and walked away. Mental status exam: General Appearance: Patient appears to be overweight, short in stature, stated age is alert, hesitant and slowed psychomotor functioning. Patient appears to have improving hygiene and grooming. Behavior: Patient is wandering the hallways, no agitation. Speech: Unable to assess Mood/Affect: Unable to assess Suicidality/Homicidality: Unable to assess Perceptions: Unable to assess Though content/process: Unable to assess Memory and concentration: Unable to assess Judgment and insight: poor IMPRESSIONS: Psychosis unspecified Cannabis use disorder Nicotine dependence PLAN: -Patient is admitted under voluntary status to MHU for stabilization of psychiatric symptoms and safety. Patient has signed adult voluntary form and medication consent and is placed in patient's chart. -Medications : continue Prozac 20 mg daily for mood/anxiety, increase abilify 10 mg daily for mood adjunct/insomnia/psychosis. -Ativan and Haldol PRN for agitation/aggression -NRT - nicotine patch - on board for discharge planning. Encourage patient to participate in groups to work on coping skills. awaiting deferral and court hearing date.
[2022-06-12] MEDS: LORazepam 1 MG TAB PO PRN (21:01)
[2022-06-13 07:19] VITALS: RESP 16
[2022-06-13] MEDS: FLUoxetine HCL 20 MG CAP PO SCH (09:22)
[2022-06-13] MEDS: NICOTINE 21MG/24HR PATCH TRANSDERM SCH (09:23)
[2022-06-13] MEDS: AMOXIC-POT CLAV 875-125MG 1 EACH TAB PO SCH ×2 (09:23→20:12)
[2022-06-13] MEDS: ARIPiprazole 10 MG TAB PO SCH (09:23)
[2022-06-13] MEDS: LORazepam 1 MG TAB PO PRN (20:13)
[2022-06-14] MEDS: ARIPiprazole 10 MG TAB PO SCH (09:26)
[2022-06-14] MEDS: AMOXIC-POT CLAV 875-125MG 1 EACH TAB PO SCH ×2 (09:26→20:33)
[2022-06-14] MEDS: FLUoxetine HCL 20 MG CAP PO SCH (09:26)
[2022-06-14] MEDS: NICOTINE 21MG/24HR PATCH TRANSDERM SCH (09:30)
--- NOTE | 2022-06-14 16:44 | P.PN ---
Progress Note - Text Progress Note Date: 06/13/22 Interval history: Patient was seen in her room. She was staring and silent throughout the interview Mental status exam: General Appearance: [Patient appears to be her than stated age Behavior: [No agitated behavior. Speech: Mute Mood/Affect: blunted affect Suicidality/Homicidality: Could not assess us patient was mute Perceptions: Could not assess us patient was mute Thought process/content: Could not assess us patient was mute Memory and concentration: Could not assess us patient was mute Judgment and insight: poor Assessment/Plan: Continue with current diagnosis. Patient continues to meet criteria for inpatient psychiatric admission for symptom stabilization and safety.[Patient will be maintained on current psychotropic medication regimen.] Monitor for medication compliance and for any psychotropic medication side effects. Will continue to monitor ongoing response to treatment. Encouraged participation in milieu.
--- NOTE | 2022-06-14 16:45 | P.PN ---
Progress Note - Text Interval history: Patient was seen [wandering the hallways] and was directable and agreeable to speak with technical proposal writer. States that she is doing "good". At this time patient denies any suicidal or homicidal ideations intent or plan. Denies any Auditory or visual hallucinations. Patient denies any side effects from the medications and has been compliant with meds. Mental status exam: General Appearance: [Patient appears to be older than stated age is alert, directable, and cooperative.] Psychomotor retardation present, but it is improved from yesterday Behavior: [No agitated behavior. Patient is calm and directable] Speech: Poverty of speech Mood/Affect: Mood is "good", affect is not congruent and blunted although it is improved from yesterday Suicidality/Homicidality: Patient denies having any suicidal or homicidal ideation intent or plan. Perceptions: Patient denies any auditory or visual hallucinations. Though content/process: [There is no evidence of any delusional thought content and thought process is linear and goal-directed.] Memory and concentration: AOX3 Judgment and insight: improving mildly Assessment/Plan: Continue with current diagnosis. Patient continues to meet criteria for inpatient psychiatric admission for symptom stabilization and safety.[Patient will be maintained on current psychotropic medication regimen.] Monitor for medication compliance and for any psychotropic medication side effects. Will continue to monitor ongoing response to treatment. Encouraged participation in milieu.
[2022-06-14] MEDS: LORazepam 1 MG TAB PO PRN (20:33)
[2022-06-15] MEDS: ARIPiprazole 10 MG TAB PO SCH (09:15)
[2022-06-15] MEDS: AMOXIC-POT CLAV 875-125MG 1 EACH TAB PO SCH ×2 (09:15→20:13)
[2022-06-15] MEDS: FLUoxetine HCL 20 MG CAP PO SCH (09:15)
[2022-06-15] MEDS: NICOTINE 21MG/24HR PATCH TRANSDERM SCH (09:15)
--- NOTE | 2022-06-15 13:38 | P.PN ---
Progress Note - Text Progress Note Date: 06/15/22 Interval history: Patient was seen today wandering the hallways today and was able to speak to lilia dejesus in the office. Patient continues to smile at times inappropriately. She appeared to be more logical today and less hesitant in her speech. She continues to have fairly poor insight and judgment. She was fairly focused on discharge. She claims that she is taking her medications and not reporting any side effects. She did appear to be brighter in affect today. She claims that she is sleeping fairly at nighttime. She was agreeable to have her medications adjusted. States that she still needs to speak with a fish packer. We spoke about transitioning on to the long-acting injection which she was okay with. She is denying any auditory or visual hallucinations. Denying any suicidal or homicidal ideations intent or plan. Mental status exam: General Appearance: Patient appears to be overweight, short in stature, stated age is alert, hesitant and slowed psychomotor functioning. Patient appears to have improving hygiene and grooming. Behavior: Patient is wandering the hallways, no agitation. Speech: patient is fluent, no pressure. Less hesitancy. Mood/Affect: Claims that her mood is "fine" affect is constricted. Suicidality/Homicidality: Denies Perceptions: She denies any auditory or visual hallucinations. Though content/process: Logical and fairly focused on discharge. More appropriate. No delusions. Memory and concentration: Alert and oriented 3, mildly improving concentration. Judgment and insight: poor, improving mildly IMPRESSIONS: Psychosis unspecified Cannabis use disorder Nicotine dependence PLAN: -Patient is admitted under voluntary status to MHU for stabilization of psychiatric symptoms and safety. Patient has signed adult voluntary form and medication consent and is placed in patient's chart. -Medications : Increase Prozac 40 mg daily for mood/anxiety, increase abilify 15 mg daily for mood adjunct/insomnia/psychosis. will give Abilify Maintenna 400 mg IM tomorrow to ensuire compliance. -Ativan and Haldol PRN for agitation/aggression -NRT - nicotine patch - on board for discharge planning. Encourage patient to participate in groups to work on coping skills. awaiting deferral and court hearing, if patient defers and contineus to improve and receives Victoria then likely disharge in 1-2 days back home with [facility] f/u
[2022-06-16] MEDS: FLUoxetine HCL 20 MG CAP PO SCH (08:11)
[2022-06-16] MEDS: AMOXIC-POT CLAV 875-125MG 1 EACH TAB PO SCH (08:11)
[2022-06-16] MEDS: ARIPiprazole 15 MG TAB PO SCH (08:11)
[2022-06-16] MEDS: NICOTINE 21MG/24HR PATCH TRANSDERM SCH (08:12)
[2022-06-16] MEDS ORDERED: ARIPiprazole IM 400 MG VIAL (NO COST) PHARMACY STOCK IM ONE (09:00)
--- NOTE | 2022-06-16 12:09 | P.PN ---
Progress Note - Text Progress Note Date: 06/16/22 Interval history: Patient was seen today wandering the hallways today and was able to speak to marine underwriter in the office. Her room. Currently, the patient is not reporting suicidal or homicidal ideation, intention, and/or plan. She is not reporting any auditory or visual hallucinations. She denies any paranoia or other delusions. She has been adherent with her medication is not endorsing any significant side effects at this time. She spends her time often wandering the hallways and will intermittently attending groups. She is inquiring about discharge. She denies any medical issues or concerns to this provider. Mental status exam: General Appearance: Patient appears to be overweight, short in stature, stated age is alert, and attempts to cooperate. Fair hygiene and grooming. Behavior: Patient is wandering the hallways, no agitation. Speech: Speech is fluent, nonpressured, and more spontaneous. Mood/Affect: Claims that her mood is "feeling better." Affect is constricted Suicidality/Homicidality: Patient denies any suicidal or homicidal ideation. Perceptions: She denies any auditory or visual hallucinations. Though content/process: Logical and fairly focused on discharge. More appropriate. No delusions. Memory and concentration: Alert and oriented 3, mildly improving concentration. Judgment and insight: Improving mildly Vital Signs Temp 97.9 F 06/15/22 06:28 Pulse 82 06/15/22 06:28 Resp 16 06/15/22 06:28 BP 136/66 06/15/22 06:28 Pulse Ox 97 06/15/22 06:28 FiO2 IMPRESSIONS: Psychosis unspecified Cannabis use disorder Nicotine dependence PLAN: -Patient is admitted under voluntary status to MHU for stabilization of psychiatric symptoms and safety. Patient deferred mental health court. -Medications : Prozac 40 mg daily for mood/anxiety Continue Abilify 15 mg by mouth daily for psychosis and mood augmentation Abilify Maintena 400 mg IM was administered today to ensure compliance -Ativan and Haldol PRN for agitation/aggression -NRT - nicotine patch -SW on board for discharge planning. Encourage patient to participate in groups to work on coping skills.
[2022-06-17 07:16] VITALS: BP 145/100; PULSE 79; TEMP 98
[2022-06-17] MEDS: FLUoxetine HCL 20 MG CAP PO SCH (08:22)
[2022-06-17] MEDS: ARIPiprazole 15 MG TAB PO SCH (08:22)
[2022-06-17] MEDS: NICOTINE 21MG/24HR PATCH TRANSDERM SCH (09:02)
--- NOTE | 2022-06-17 12:13 | P.DS ---
Providers Date of admission: 06/08/22 03:39 Expected date of discharge: 06/17/22 Attending physician: Benedict Curry MD Consults: 06/08/22 03:41 Consult Physician Routine Consulting Provider: Batsheva Braun Consult Reason/Comments: For H & P for Medical Follow Up Do you want consulting provider notified?: Yes Primary care physician: Breonna Augustin - Discharge Diagnosis(es) (1) Major depressive disorder, recurrent, severe with psychotic features Current Visit: Yes Status: Acute Priority: High (2) Cannabis use disorder Current Visit: Yes Status: Chronic Priority: Medium (3) Nicotine dependence Current Visit: Yes Status: Chronic Priority: Medium Hospital Course: Admission HPI: Initial psychiatric evaluation was completed by Dr. Curry on 06/08/2022 who wrote: Patient is a 26 yo female, currebtly lives with her 5 yr old son, in a mobile home. unemployed. Patient presented to the hospital yesterday for psychiatric evaluation. Patient apparently was suicidal, depressed at home, she got into an arguemnt with her mother. she has been apparently feeling this way for the past 3 months and apparently has attempted suicide by cutting and ODing on pills a few weeks ago. her UDS was posivite for thc. she was voluntary on the unit. she was fairly hesistant and slowed psychotmotor movements. she had poverty of content and speech. slow to respond and hesitant. she has poor insight and judgment, poor eye contact. she was fairly vague about her need for being in the hopsital and was hesitant about treatment, she stated that "if I don't do what I'm supposed to do and I'm going to lose my kids". She claims that she is feeling hopeless. She did mention suicidal thoughts however no plan today. Denying any homicidal ideations. States that her sleep has been poor, appetite is been on and off. At this time patient denies any visual hallucinations. He states that she is hearing voices telling her that she is "worthless and not good enough". Patient denies any flight of ideas racing thoughts and increased in goal directed beh avior. Patient admits to using marijuana frequently and cigarettes daily. Denying any other recreational drug use. Patient states that she has no previous psychiatric history or diagnosis. Patient denies being on any psychiatric medications. Patient denies any previous psychiatric hospitalizations. Patient denies any psychiatric outpatient follow- up. He did claim that she attempted suicide multiple times before but "failed". Hospital course: Upon admission to the unit patient was initially appearing to respond to internal stimuli, with a very flat affect, and minimal conversation. A second clinical certificate was filled out. The patient was started on a regimen of Prozac and Zyprexa however was nonadherent with medications. Patient was eventually transitioned to Abilify due to concerns for the patient's adherence with medications. The patient ended up deferring mental health Court and became adherent with her medications. As her Prozac and Abilify were titrated, the patient displayed a significant improvement regards to her target symptoms of depression, psychosis, and range of affect. She became much more spontaneous and social with staff and peers. She was eventually transitioned to Abilify [facility] on 06/16/2022. On the day of discharge, the patient is not reporting any suicidal or homicidal ideation, or plan. She is not reporting any access to firearms or weapons. She reports no auditory or visual hallucinations. She denies any paranoia or other delusions. She has been adherent with her medication and is not endorsing any significant side effects. The patient was also seen by medical team for history and physical examination. She was counseled at length on the points medication adherence appropriate outpatient follow-up. Furthermore, the patient was counseled on abstaining from all substances including alcohol, tobacco, marijuana, and all illicit drugs. As the patient a longer met criteria for continued inpatient psychiatric hospitalization, she was subsequently discharged. Prior to discharge a family meeting will be arranged by rn social work to answer any questions and ensure safety upon discharge. She reported no medical issues or concerns in the day of discharge he denied any shortness of breath, palpitations, or chest pain. Mental status exam: General Appearance: Patient appears to be stated age is alert, pleasant, and cooperative. Patient is in no acute distress and has fair hygiene and grooming Behavior: Patient is calmly seated without any agitated behavior. Speech: Patient's speech is fluent and nonpressured. Mood/Affect: Patient reports their mood is "much better", affect is congruent and euthymic. Constricted. Suicidality/Homicidality: Patient denies having any suicidal or homicidal ideation intent or plan. Perceptions: Patient denies any auditory or visual hallucinations. Though content/process: There is no evidence of any delusional thought content and thought process is linear and goal-directed. Memory and concentration: AOX3, grossly intact for the purposes of this session. Can spell "WORLD" backwards correctly. Judgment and insight: Improved with guarded prognosis Impression: Major depressive disorder, severe, with psychotic features Cannabis use disorder Nicotine dependence Plan: -Continue with discharge today as patient has improved and stabilized psychiatrically and is not currently an imminent threat to herself and/or others. Patient will remain at chronically elevated risk due to the severity of her mental illness -Continue medications: Abilify 15 mg by mouth daily for 15 days. Abilify maintena 400 mg IM administered on 06/16/2022. Next dose due on 07/14/2022. Prozac 40 mg by mouth daily for depression/anxiety -Patient was counseled on the need for medication compliance and appropriate follow-up at mental health and also primary care for medical issues. Patient verbalized understanding and agreed. -Social work to arrange for and conduct family meeting to ensure safety upon discharge and answer any questions/concerns. Social work also to arrange for patients follow up appointments with [facility] for psychiatric care along with follow up with primary care provider. -Patient counseled on abstaining from recreational drugs and marijuana and alcohol. Was informed/educated on the adverse effects on their physical and mental health. Patient verbally agreed and understood. -Patient was instructed to return to the hospital or seek immediate medical care if their psychiatric or medical symptoms do worsen or reoccur. -Psychoeducation and supportive therapy provided to patient. Risks and benefits of pharmacological treatment versus the risks and benefits of nontreatment weight and discussed. Informed consent discussion held. Common side effects of psychotropics discussed such as, but not limited to headache, GI disturbance, sexual dysfunction, movement disorders, sedation, and orthostatic hypotension. Life threatening and blackbox warnings of prescribed medications also discussed. Potential risks of operating a vehicle or heavy machinery discussed with patient at length. Advised on importance of compliance and a reliable and responsible manner. Patient advised to review FDA consumer labeling of all medications prior to taking. Patient verbalized understanding of potential risks, and agrees with current treatment plan. Patient advised to medically contact physician/emergency personnel if any acute changes in condition occur. Vital Signs Temp 98 F 06/17/22 06:32 Pulse 79 06/17/22 06:32 Resp 16 06/17/22 06:32 BP 145/100 06/17/22 06:32 Pulse Ox 97 06/15/22 06:28 FiO2 Laboratory Results WBC 13.4 k/uL (3.8-10.6) H 06/08/22 11:39 RBC 5.21 m/uL (3.80-5.40) 06/08/22 11:39 Hgb 15.3 gm/dL (11.4-16.0) 06/08/22 11:39 Hct 45.8 % (34.0-46.0) 06/08/22 11:39 MCV 87.9 fL (80.0-100.0) 06/08/22 11:39 MCH 29.4 pg (25.0-35.0) 06/08/22 11:39 MCHC 33.4 g/dL (31.0-37.0) 06/08/22 11:39 RDW 13.7 % (11.5-15.5) 06/08/22 11:39 Plt Count 457 k/uL (150-450) H 06/08/22 11:39 MPV 7.8 06/08/22 11:39 Neutrophils % 74 % 06/08/22 11:39 Lymphocytes % 15 % 06/08/22 11:39 Monocytes % 7 % 06/08/22 11:39 Eosinophils % 2 % 06/08/22 11:39 Basophils % 1 % 06/08/22 11:39 Neutrophils # 10.0 k/uL (1.3-7.7) H 06/08/22 11:39 Lymphocytes # 2.1 k/uL (1.0-4.8) 06/08/22 11:39 Monocytes # 1.0 k/uL (0-1.0) 06/08/22 11:39 Eosinophils # 0.3 k/uL (0-0.7) 06/08/22 11:39 Basophils # 0.1 k/uL (0-0.2) 06/08/22 11:39 Sodium 140 mmol/L (137-145) 06/08/22 11:39 Potassium 4.6 mmol/L (3.5-5.1) 06/08/22 11:39 Chloride 105 mmol/L (98-107) 06/08/22 11:39 Carbon Dioxide 22 mmol/L (22-30) 06/08/22 11:39 Anion Gap 13 mmol/L 06/08/22 11:39 BUN 10 mg/dL (7-17) 06/08/22 11:39 Creatinine 0.72 mg/dL (0.52-1.04) 06/08/22 11:39 Est GFR (CKD-EPI)AfAm >90 (>60 ml/min/1.73 sqM) 06/08/22 11:39 Est GFR (CKD-EPI)NonAf >90 (>60 ml/min/1.73 sqM) 06/08/22 11:39 Glucose 95 mg/dL (74-99) 06/08/22 11:[address] Glu mg/dL 102 06/08/22 11:39 Hemoglobin A1c 5.2 % (0.0-6.0) 06/08/22 11:39 Calcium 9.8 mg/dL (8.4-10.2) 06/08/22 11:39 Total Bilirubin 0.9 mg/dL (0.2-1.3) 06/08/22 11:39 Conjugated Bilirubin 0.0 mg/dL (0.0-0.3) 06/08/22 11:39 Unconjugated Bilirubin 0.5 mg/dL (0.0-1.1) 06/08/22 11:39 Delta Bilirubin 0.4 mg/dL (0.0-0.2) H 06/08/22 11:39 AST 23 U/L (14-36) 06/08/22 11:39 ALT 29 U/L (4-34) 06/08/22 11:39 Alkaline Phosphatase 83 U/L (38-126) 06/08/22 11:39 Total Protein 7.6 g/dL (6.3-8.2) 06/08/22 11:39 Albumin 4.5 g/dL (3.5-5.0) 06/08/22 11:39 Triglycerides 105.00 mg/dL (0.00-149.00) 06/08/22 11:39 Cholesterol 169.00 mg/dL (0.00-200.00) 06/08/22 11:39 LDL Cholesterol, Calc 114.4 mg/dL (0.0-131.0) 06/08/22 11:39 VLDL Cholesterol, Calc 21.00 mg/dL (5.00-40.00) 06/08/22 11:39 HDL Cholesterol 33.60 mg/dL (40.00-60.00) L 06/08/22 11:39 Cholesterol/HDL Ratio 5.03 Ratio 06/08/22 11:39 TSH 0.938 mIU/L (0.465-4.680) 06/08/22 11:39 Urine Color Yellow 06/08/22 02:54 Urine Appearance Cloudy (Clear) H 06/08/22 02:54 Urine pH 6.0 (5.0-8.0) 06/08/22 02:54 Ur Specific Mobile 1.032 (1.001-1.035) 06/08/22 02:54 Urine Protein 1+ (Negative) H 06/08/22 02:54 Urine Glucose (UA) Negative (Negative) 06/08/22 02:54 Urine Ketones 3+ (Negative) H 06/08/22 02:54 Urine Blood Small (Negative) H 06/08/22 02:54 Urine Nitrite Negative (Negative) 06/08/22 02:54 Urine Bilirubin 1+ (Negative) H 06/08/22 02:54 Urine Urobilinogen 6.0 mg/dL (<2.0) 06/08/22 02:54 Ur Leukocyte Esterase Large (Negative) H 06/08/22 02:54 Urine RBC 26 /hpf (0-5) H 06/08/22 02:54 Urine WBC 76 /hpf (0-5) H 06/08/22 02:54 Ur Squamous Epith Cells 17 /hpf (0-4) H 06/08/22 02:54 Urine Mucus Many /hpf (None) H 06/08/22 02:54 Urine HCG, Qual Not Detected (Not Detectd) 06/08/22 02:54 Urine Opiates Screen Not Detected (NotDetected) 06/08/22 02:54 Ur Oxycodone Screen Not Detected (NotDetected) 06/08/22 02:54 Urine Methadone Screen Not Detected (NotDetected) 06/08/22 02:54 Ur Propoxyphene Screen Not Detected (NotDetected) 06/08/22 02:54 Ur Barbiturates Screen Not Detected (NotDetected) 06/08/22 02:54 U Tricyclic Antidepress Not Detected (NotDetected) 06/08/22 02:54 Ur Phencyclidine Scrn Not Detected (NotDetected) 06/08/22 02:54 Ur Amphetamines Screen Not Detected (NotDetected) 06/08/22 02:54 U Methamphetamines Scrn Not Detected (NotDetected) 06/08/22 02:54 U Benzodiazepines Scrn Not Detected (NotDetected) 06/08/22 02:54 Urine Cocaine Screen Not Detected (NotDetected) 06/08/22 02:54 U Marijuana (THC) Screen Detected (NotDetected) H 06/08/22 02:54 Coronavirus (PCR) Not Detected (Not Detectd) 06/08/22 02:32 Allergies Allergy/AdvReac Type Severity Reaction Status Date / Time banana Allergy Rash/Hives Verified 06/08/22 04:54 carrot Allergy Anaphylaxis Verified 06/08/22 04:54 egg Allergy Rash/Hives Verified 06/08/22 04:54 milk Allergy Rash/Hives Verified 06/08/22 04:54 parsley Allergy Anaphylaxis Verified 06/08/22 04:54 walnut Allergy Rash/Hives Verified 06/08/22 04:54 Patient Condition at Discharge: Stable Plan - Discharge Summary New Discharge Prescriptions: New ARIPiprazole [Abilify] 15 mg PO DAILY 15 Days #15 tab Nicotine 21Mg/24Hr Patch [Habitrol] 1 patch TRANSDERM DAILY 1 Days #15 patch ARIPiprazole IM [Abilify Maintena] 400 mg IM QMONTHLY 1 Days #1 each FLUoxetine HCL [PROzac] 40 mg PO DAILY 30 Days #60 cap Continue Rizatriptan Benzoate [Maxalt] 10 mg PO BID PRN PRN Reason: Migraine Headache Discontinued Acetaminophen Tab [Tylenol Tab] 1,000 mg PO Q6HR PRN PRN Reason: Pain Cephalexin [Keflex] 500 mg PO Q12HR 7 Days #14 cap Discharge Medication List Rizatriptan Benzoate [Maxalt] 10 mg PO BID PRN 04/26/21 [History] ARIPiprazole IM [Abilify Maintena] 400 mg IM QMONTHLY 1 Days #1 each 04/05/23 [Rx] ARIPiprazole [Abilify] 15 mg PO DAILY 15 Days #15 tab 06/17/22 [Rx] FLUoxetine HCL [PROzac] 40 mg PO DAILY 30 Days #60 cap 06/17/22 [Rx] Nicotine 21Mg/24Hr Patch [Habitrol] 1 patch TRANSDERM DAILY 1 Days #15 patch 06/17/22 [Rx] Follow up Appointment(s)/Referral(s): [facility] [Outside] - 06/19/22 3:00 pm (06/19/2022 3:00PM - 4:00PM PARUL PABLO II 06/24/2022 8:30AM - 9:00AM SANDRITA DENNISON ) Breonna Augustin MD [Primary Care Provider] - 1-2 days Patient Instructions/Handouts: How to Stop Smoking (DC), Depression (DC), Suicide Prevention (DC) Activity/Diet/Wound Care/Special Instructions: Avoid the use of street drugs and alcohol. Take all medications as prescribed. When you are in need of refills on your medications, please contact your medical provider and/or outpatient psychiatrist to have this done. Please go to scheduled outpatient appointments for aftercare treatment. If symptoms return or become worse, call the crisis line at and/or go to the nearest emergency room for evaluation. Discharge Disposition: HOME SELF-CARE
== END 2022-06-17 13:05 | disposition home or self-care (01) | DRG 751 ==
LOC: EC 21:58 → 3MHU 06-08 03:39
PROVIDERS: ADMIT Psychiatry & Neurology Psychiatry; ATTEND Psychiatry & Neurology Psychiatry
DX: F33.3 Major depressive disorder, recurrent, severe with psychotic symptoms (principal); F12.10 Cannabis abuse, uncomplicated; Z71.51 Drug abuse counseling and surveillance of drug abuser; Z56.0 Unemployment, unspecified; J45.909 Unspecified asthma, uncomplicated; G40.909 Epilepsy, unspecified, not intractable, without status epilepticus; Z28.311 Partially vaccinated for COVID-19; Z20.822 Contact with and (suspected) exposure to COVID-19; Z28.21 Immunization not carried out because of patient refusal; Z87.01 Personal history of pneumonia (recurrent); Z91.51 Personal history of suicidal behavior; Z91.012 Allergy to eggs; Z91.011 Allergy to milk products; Z91.018 Allergy to other foods
CPT/HCPCS: 80053; 80061; 80306; 81001; 81025; 82075; 82248; 83036; 84443; 85025; 87086; 87635; 99285

== ENCOUNTER 2023-07-16 18:01 | Inpatient (IN) | payer MEDICAID, OTHER ==
[2023-07-16 18:59] LABS: Appearance,Urine Cloudy (Clear); Bacteria,Urine Rare /hpf; Bilirubin,Urine Negative (Negative); Blood,Urine Negative (Negative); Color,Urine Yellow; Glucose,Urine (UA) Negative (Negative); Hyaline Casts,Urine 31 /lpf (0-2); Leukocyte Esterase,Urine Large (Negative); Mucus,Urine Many /hpf; Nitrite,Urine Negative (Negative); Protein,Urine 1+ (Negative); RBC,Urine 3 /hpf (0-5); Specific Gravity,Urine 1.026 (1.001-1.035); Squamous Epithelial Cell,Urine 16 /hpf (0-4); WBC,Urine 3 /hpf (0-5)
--- NOTE | 2023-07-16 19:00 | ED ---
General Adult HPI - General Chief complaint: Psychiatric Symptoms Stated complaint: Mental health eval Time Seen by Provider: 07/16/23 18:13 Source: patient, EMS, RN notes reviewed Mode of arrival: EMS Limitations: no limitations - History of Present Illness Initial comments: Patient is a 27-year-old female present to the emergency department with juvencio rns for depression. Symptoms have worsened over the past couple of days secondary to use of marijuana and cocaine. Patient feels depressed and thoughts of self-harm. Patient did have a plan. No homicidal thoughts. No new physical complaints. Patient has been off her medication for the past year. - Related Data Home Medications Medication Instructions Recorded Confirmed No Known Home Medications 07/16/23 07/16/23 Allergies Allergy/AdvReac Type Severity Reaction Status Date / Time banana Allergy Rash/Hives Verified 07/16/23 19:43 carrot Allergy Anaphylaxis Verified 07/16/23 19:43 egg Allergy Rash/Hives Verified 07/16/23 19:43 milk Allergy Rash/Hives Verified 07/16/23 19:43 parsley Allergy Anaphylaxis Verified 07/16/23 19:43 walnut Allergy Rash/Hives Verified 07/16/23 19:43 Review of Systems ROS Statement: Those systems with pertinent positive or pertinent negative responses have been documented in the HPI. ROS Other: All systems not noted in ROS Statement are negative. Constitutional: Denies: fever Eyes: Denies: eye pain ENT: Denies: ear pain Respiratory: Denies: cough Cardiovascular: Denies: chest pain Psychiatric: Reports: depression, suicidal thoughts Past Medical History Past Medical History: Asthma, Pneumonia, Seizure Disorder Additional Past Medical History / Comment(s): pt states she had a seizure x 1 year ago. History of Any Multi-Drug Resistant Organisms: None Reported Past Surgical History: No Surgical Hx Reported Past Anesthesia/Blood Transfusion Reactions: No Reported Reaction Past Psychological History: Anxiety, Depression Smoking Status: Current every day smoker, Vaper Past Alcohol Use History: Occasional Past Drug Use History: Heroin, Methamphetamine, Opiates - Past Family History Mother Family Medical History: No Reported History Additional Family Medical History / Comment(s): Migranes Father Family Medical History: Diabetes Mellitus, Hypertension Additional Family Medical History / Comment(s): Neuropathy General Exam Limitations: no limitations General appearance: alert, in no apparent distress Head exam: Present: normocephalic Eye exam: Present: normal appearance Neck exam: Present: normal inspection Respiratory exam: Present: normal lung sounds bilaterally Cardiovascular Exam: Present: regular rate, normal rhythm GI/Abdominal exam: Present: soft. Absent: tenderness Extremities exam: Present: normal inspection Neurological exam: Present: alert Psychiatric exam: Present: flat affect Skin exam: Absent: abrasion Course Vital Signs 07/16/23 07/16/23 07/17/23 18:15 23:04 00:04 Temperature 99 F 97.8 F 97.8 F Pulse Rate 102 H Pulse Rate [ 92 92 Right] Respiratory 18 18 18 Rate Blood Pressure 119/78 Blood Pressure 123/74 123/74 [Left Arm] O2 Sat by Pulse 99 98 98 Oximetry Medical Decision Making - Medical Decision Making Was pt. sent in by a medical professional or institution (, PA, PRODUCTION SUPERVISOR, urgent care, hospital, or [place] [facility] [place] facility...) When possible be specific @ -No Did you speak to anyone other than the patient for history (EMS, parent, family, police, friend...)? What history was obtained from this source @ -No Did you review nursing and triage notes (agree or disagree)? Why? @ -I reviewed and agree with nursing and triage notes Were old charts reviewed (outside hosp., previous admission, EMS record, old EKG, old radiological studies, urgent care reports/EKG's, [place] health care facility records)? Report findings @ -No old charts were reviewed Differential Diagnosis (chest pain, altered mental status, abdominal pain women, abdominal pain men, vaginal bleeding, weakness, fever, dyspnea, syncope, headache, dizziness, GI bleed, back pain, seizure, CVA, palpatations, mental health, musculoskeletal)? @ -Differential Mental Health Depression, anxiety, bipolar, psychosis, schizophrenia, borderline personality, situational depression, adjustment disorder, behavioral disorder, brain tumor, malingering, substance abuse, encephalopathy, medication reaction, dementia, hypothyroidism, degenerative neurologic disorder, lupus.... This is not meant to be all-inclusive list EKG interpreted by me (3pts min.). @ -As above X-rays interpreted by me (1pt min.). @ -None done CT interpreted by me (1pt min.). @ -None done U/S interpreted by me (1pt. min.). @ -None done What testing was considered but not performed or refused? (CT, X-rays, U/S, labs)? Why? @ -None What meds were considered but not given or refused? Why? @ -None Did you discuss the management of the patient with other professionals (professionals i.e. , PA, PRODUCTION SUPERVISOR, lab, RT, psych nurse, social media project manager, servomechanism designer, teacher, air control/anti air warfare officer, piano case maker)? Give summary @ -No Was smoking cessation discussed for >3mins.? @ -No Was critical care preformed (if so, how long)? @ -No Were there social determinants of health that impacted care today? How? (Homelessness, low income, unemployed, alcoholism, drug addiction, mclaughlin sportation, low edu. Level, literacy, decrease access to med. care, snf, rehab)? @ -No Was there de-escalation of care discussed even if they declined (Discuss DNR or withdrawal of care, Hospice)? DNR status @ -No What co-morbidities impacted this encounter? (DM, HTN, Smoking, COPD, CAD, Cancer, CVA, ARF, Chemo, Hep., AIDS, mental health diagnosis, sleep apnea, morbid obesity)? @ -None Was patient admitted / discharged? Hospital course, mention meds given and route, prescriptions, significant lab abnormalities, going to OR and other pertinent info. @ -Patient seen by mental health services and did admit patient. Undiagnosed new problem with uncertain prognosis? @ -No Drug Therapy requiring intensive monitoring for toxicity (Heparin, Nitro, Insulin, Cardizem)? @ -No Were any procedures done? @ -No Diagnosis/symptom? @ -Depression Acute, or Chronic, or Acute on Chronic? @ -Acute Uncomplicated (without systemic symptoms) or Complicated (systemic symptoms)? @ -Default Side effects of treatment? @ -No Exacerbation, Progression, or Severe Exacerbation? @ -No Poses a threat to life or bodily function? How? (Chest pain, [place], CA, pneumonia, PE, COPD, DKA, ARF, appy, cholecystitis, CVA, Diverticulitis, Homicidal, Suicidal, threat to staff... and all critical care pts) @ -No - Lab Data Result diagrams: 07/17/23 11:15 07/17/23 11:15 Lab Results 07/16/23 07/16/23 07/16/23 Range/Units 18:42 18:42 21:41 Urine Color Yellow Urine Appearance Cloudy H (Clear) Urine pH 6.0 (5.0-8.0) Ur Specific [place] 1.026 (1.001-1.035) Urine Protein 1+ H (Negative) Urine Glucose (UA) Negative (Negative) Urine Ketones 2+ H (Negative) Urine Blood Negative (Negative) Urine Nitrite Negative (Negative) Urine Bilirubin Negative (Negative) Urine Urobilinogen 3.0 (<2.0) mg/dL Ur Leukocyte Esterase Large H (Negative) Urine RBC 3 (0-5) /hpf Urine WBC 3 (0-5) /hpf Ur Squamous Epith Cells 16 H (0-4) /hpf Urine Bacteria Rare H (None) /hpf Hyaline Casts 31 H (0-2) /lpf Urine Mucus Many H (None) /hpf Urine HCG, Qual Not Detected (Not Detectd) Urine Opiates Screen Not Detected (NotDetected) Ur Oxycodone Screen Not Detected (NotDetected) Urine Methadone Screen Not Detected (NotDetected) Ur Barbiturates Screen Not Detected (NotDetected) U Tricyclic Antidepress Not Detected (NotDetected) Ur Phencyclidine Scrn Not Detected (NotDetected) Ur Amphetamines Screen Not Detected (NotDetected) U Methamphetamines Scrn Not Detected (NotDetected) U Benzodiazepines Scrn Not Detected (NotDetected) Urine Cocaine Screen Not Detected (NotDetected) U Marijuana (THC) Screen Detected H (NotDetected) Influenza Type A (PCR) Not Detected (Not Detectd) Influenza Type B (PCR) Not Detected (Not Detectd) RSV (PCR) Not Detected (Not Detectd) SARS-CoV-2 (PCR) Not Detected (Not Detectd) Disposition Clinical Impression: Depression Disposition: TRANSFER TO PSYCH HOSP/UNIT Is patient prescribed a controlled substance at d/c from ED?: No
[2023-07-16 19:08] LABS: Ketones,Urine 2+ (Negative)
[2023-07-16 20:11] LABS: Amphetamine Screen,Urine Not Detected (NotDetected); Barbiturate Screen,Urine Not Detected (NotDetected); Benzodiazepines Screen,Urine Not Detected (NotDetected); Cocaine Screen,Urine Not Detected (NotDetected); Methadone Screen, Urine Not Detected (NotDetected); Opiate Screen,Urine Not Detected (NotDetected); Oxycodone Screen, Urine Not Detected (NotDetected); Phencyclidine Screen,Urine Not Detected (NotDetected); Tricyclic Antidepressant,Urine Not Detected (NotDetected); Urn Cannabinoid Scrn Detected (NotDetected)
[2023-07-16] MEDS ORDERED: MAGNESIUM HYDROXIDE 2,400 MG/30 ML CUP PO PRN (23:05)
[2023-07-16] MEDS ORDERED: LORazepam 2 MG/ML INJ IM PRN (23:05)
[2023-07-16] MEDS ORDERED: haloperidoL 5 MG TAB PO PRN (23:05)
[2023-07-16] MEDS ORDERED: MAG HYDROX/AL HYDROX/SIMETH 355 ML BOTTLE PO PRN (23:05)
[2023-07-16] MEDS ORDERED: HALOPERIDOL LACTATE 5 MG/ML 1 ML VIAL IM PRN (23:05)
[2023-07-16] MEDS ORDERED: IBUPROFEN 600 MG TAB PO PRN (23:05)
[2023-07-16] MEDS ORDERED: LORazepam 1 MG TAB PO PRN (23:05)
[2023-07-17] MEDS: diphenhydrAMINE 50 MG CAP PO STA (01:19)
[2023-07-17 01:30] LABS: Glucose,Whole Blood 97 mg/dL (70-110)
[2023-07-17] MEDS: NICOTINE 14MG/24HR PATCH TRANSDERM SCH (09:48)
--- NOTE | 2023-07-17 10:06 | P.HP ---
Psychiatric H&P - . H&P Date: 07/17/23 History & Physical: Allergies Allergy/AdvReac Type Severity Reaction Status Date / Time banana Allergy Rash/Hives Verified 07/16/23 19:43 carrot Allergy Anaphylaxis Verified 07/16/23 19:43 egg Allergy Rash/Hives Verified 07/16/23 19:43 milk Allergy Rash/Hives Verified 07/16/23 19:43 parsley Allergy Anaphylaxis Verified 07/16/23 19:43 walnut Allergy Rash/Hives Verified 07/16/23 19:43 Vital Signs Temp 98.7 F 07/17/23 00:21 Pulse 92 07/17/23 00:21 Resp 20 07/17/23 00:21 BP 115/58 07/17/23 00:21 Pulse Ox 97 07/17/23 00:21 FiO2 Intake & Output 07/16/23 07/17/23 07/17/23 18:59 06:59 18:59 Weight 68.039 kg 78.97 kg Laboratory Last Values POC Glucose (mg/dL) 97 mg/dL (70-110) 07/17/23 01:28 POC Glu Prosthodontist/Owner ID Treav Hutchins 07/17/23 01:28 Urine Color Yellow 07/16/23 18:42 Urine Appearance Cloudy (Clear) H 07/16/23 18:42 Urine pH 6.0 (5.0-8.0) 07/16/23 18:42 Ur Specific [place] 1.026 (1.001-1.035) 07/16/23 18:42 Urine Protein 1+ (Negative) H 07/16/23 18:42 Urine Glucose (UA) Negative (Negative) 07/16/23 18:42 Urine Ketones 2+ (Negative) H 07/16/23 18:42 Urine Blood Negative (Negative) 07/16/23 18:42 Urine Nitrite Negative (Negative) 07/16/23 18:42 Urine Bilirubin Negative (Negative) 07/16/23 18:42 Urine Urobilinogen 3.0 mg/dL (<2.0) 07/16/23 18:42 Ur Leukocyte Esterase Large (Negative) H 07/16/23 18:42 Urine RBC 3 /hpf (0-5) 07/16/23 18:42 Urine WBC 3 /hpf (0-5) 07/16/23 18:42 Ur Squamous Epith Cells 16 /hpf (0-4) H 07/16/23 18:42 Urine Bacteria Rare /hpf (None) H 07/16/23 18:42 Hyaline Casts 31 /lpf (0-2) H 07/16/23 18:42 Urine Mucus Many /hpf (None) H 07/16/23 18:42 Urine HCG, Qual Not Detected (Not Detectd) 07/16/23 18:42 Urine Opiates Screen Not Detected (NotDetected) 07/16/23 18:42 Ur Oxycodone Screen Not Detected (NotDetected) 07/16/23 18:42 Urine Methadone Screen Not Detected (NotDetected) 07/16/23 18:42 Ur Barbiturates Screen Not Detected (NotDetected) 07/16/23 18:42 U Tricyclic Antidepress Not Detected (NotDetected) 07/16/23 18:42 Ur Phencyclidine Scrn Not Detected (NotDetected) 07/16/23 18:42 Ur Amphetamines Screen Not Detected (NotDetected) 07/16/23 18:42 U Methamphetamines Scrn Not Detected (NotDetected) 07/16/23 18:42 U Benzodiazepines Scrn Not Detected (NotDetected) 07/16/23 18:42 Urine Cocaine Screen Not Detected (NotDetected) 07/16/23 18:42 U Marijuana (THC) Screen Detected (NotDetected) H 07/16/23 18:42 Influenza Type A (PCR) Not Detected (Not Detectd) 07/16/23 21:41 Influenza Type B (PCR) Not Detected (Not Detectd) 07/16/23 21:41 RSV (PCR) Not Detected (Not Detectd) 07/16/23 21:41 SARS-CoV-2 (PCR) Not Detected (Not Detectd) 07/16/23 21:41 07/17/23 09:56 IDENTIFYING DATA: Patient is a 27 yo female, currently lives alone, in an apartment. unemployed. has 1 son. HPI: Patient presented to the hospital yesterday for psychiatric evaluation. Patient had claimed to the ER that she was feeling depressed having suicidal ideations, was apparently using several different drugs. Patient's urine drug screen resulting positive for marijuana. Patient was previously admitted to the mental health unit a year ago. She was agreeable to see headline writer today, had very poor eye contact, constricted affect. She was fairly vague evasive about her substance use. She was minimizing her need for hospitalization. She claims that she stopped taking her psychiatric medications several months ago. States that she got into a "argument" with her mother. States that they have been arguing a lot recently. Claims that she does not know why they were arguing. States that she is also not allowed to back to her apartment due to "using drugs". She is currently denying any suicidal ideations or homicidal ideations, denying any auditory or visual hallucinations. States that her sleep has been poor, appetite has been fair. Denying any mood swings or agitation. Patient appeared to be fairly nonchalant. PAST PSYCHIATRIC HISTORY: Patient states that she has has a history of polysubstance abuse, depression. Patient previously on Abilify Maintena and Prozac.. Patient denies any previous psychiatric hospitalizations. Patient denies any psychiatric outpatient follow-up. He did claim that she attempted suicide multiple times before but "failed". Past Medical History: As per ER note ALLERGIES: as per EMR CHEMICAL DEPENDENCY HISTORY: as per HPI FAMILY PSYCHIATRIC/SUBSTANCE USE HISTORY: denies SOCIAL HISTORY: Patient was born and raised in [place] [facility] [place] and claims that she now lives in [place]. She lives in an apartment, does not have custody of her son. She states that she is unemployed. Denying any legal history. MENTAL STATUS EXAM: General Appearance: Patient appears to be thin,, short in stature, stated age is alert, curly hair, hesitant and slowed psychomotor functioning. Patient appears to have poor hygiene and grooming. Behavior: Patient is seated without any agitated behavior. Poor eye contact. Evasive, guarded. Speech: Patient's speech is fluent and nonpressured. Soft tone of voice. [place] Mood/Affect: Patient reports their mood is depressed and anxious, affect is congruent and constricted. Suicidality/Homicidality: Patient denies having any homicidal ideation intent or plan. Denies any suicidal thoughts, no intent or plan. Perceptions: Patient denies any visual hallucinations and denies any auditory hallucinations Though content/process: [place], hesitant. Poverty of content. Paranoia. Memory and concentration: AOX3, grossly intact for the purposes of this session. Can spell "WORLD" backwards Judgment and insight: poor STRENGTHS/WEAKNESSES: strength is that patient is resilient. Weakness is that patient has poor judgment and is impulsive very poor insight INTELLECT: average IMPRESSIONS: Depressive disorder unspecified, rule out bipolar disorder depression Methamphetamine use disorder Opioid abuse Cannabis use disorder Nicotine dependence PLAN: -Patient is admitted under voluntary status to MHU for stabilization of psychiatric symptoms and safety. Patient has signed adult voluntary form and medication consent and is placed in patient's chart. -Medications : Abilify 5 mg daily for mood stabilization/mood adjunct, Zoloft 50 mg daily for mood/anxiety -Ativan and Haldol PRN for agitation/aggression -Patient was counselled on substance abuse and desired to cut back on use -Patient was informed of the risks, benefits and side effects of the medication and patient verbally consented to taking the medications. Patient signed med consent form and was placed in chart. -Internal Medicine consult to perform medical evaluation and physical. -NRT - nicotine patch -SW on board for discharge planning. Encourage patient to participate in groups to work on coping skills. 07/17/23 10:01
[2023-07-17] MEDS: SERTRALINE 50 MG TAB PO SCH (10:59)
[2023-07-17] MEDS: ARIPiprazole 5 MG TAB PO SCH (10:59)
[2023-07-17 11:47] LABS: Basophils # (A) 0.1 k/uL (0-0.2); Basophils % (A) 1 %; Eosinophils # (A) 0.1 k/uL (0-0.7); Eosinophils % (A) 2 %; HCT 44.9 % (34.0-46.0); HGB 14.5 gm/dL (11.4-16.0); Lymphocytes # (A) 1.7 k/uL (1.0-4.8); Lymphocytes % (A) 19 %; MCH 29.2 pg (25.0-35.0); MCHC 32.3 g/dL (31.0-37.0); MCV 90.5 fL (80.0-100.0); Mean Platelet Volume 8.1; Monocytes # (A) 0.5 k/uL (0-1.0); Monocytes % (A) 5 %; Neutrophils # (A) 6.6 k/uL (1.3-7.7); Neutrophils % (A) 73 %; Platelet Count 314 k/uL (150-450); RBC 4.96 m/uL (3.80-5.40); RDW 13.4 % (11.5-15.5); WBC 9.1 k/uL (3.8-10.6)
[2023-07-17 12:09] LABS: ALT 17 U/L (4-34); AST 19 U/L (14-36); African American GFR (CKD) >90 (>60 ml/min/1.73 sqM); Albumin 4.3 g/dL (3.5-5.0); Alkaline Phosphatase 68 U/L (38-126); Anion Gap 11 mmol/L; Blood Urea Nitrogen 7 mg/dL (7-17); Calcium 9.5 mg/dL (8.4-10.2); Carbon Dioxide 20 mmol/L (22-30); Chloride 108 mmol/L (98-107); Glucose 93 mg/dL (74-99); Non-African American GFR(CKD) >90 (>60 ml/min/1.73 sqM); Potassium 4.7 mmol/L (3.5-5.1); Sodium 139 mmol/L (137-145); Total Protein 6.9 g/dL (6.3-8.2)
[2023-07-17 19:53] LABS: Glucose,Whole Blood 103 mg/dL (70-110)
[2023-07-17 23:10] LABS: Chol/HDL Ratio 3.35 Ratio; LDL Cholesterol,Calculated 96.9 mg/dL (0.0-131.0); VLDL Calculation 16.06 mg/dL (5.00-40.00)
--- NOTE | 2023-07-17 23:20 | P.MDCNMH ---
History of Present Illness H&P Date: 07/17/23 Chief Complaint: medical evaluation 27 year old female no significant past medical history she is presented for evaluation of suicidal ideation. she also reports walking for too long , resulting in superficial wounds to the heel of the left foot. denies any pain , or active bleeding no fever, chills, no swelling. she has redness all over her legs and arms , due to long sun exposure. denies any itching , or pain. admits to smoking , denies illicit drugs or alcohol . review of systems Pertinent positives as noted in HPI. All other systems were reviewed and are negative on exam Constitutional: No acute distress Eyes: Anicteric sclerae, moist conjunctiva, Pupils equal round reactive to light ENMT: NC/AT Oropharynx clear, no erythema, or exudates Lungs: Clear to auscultation Clear to percussion Normal respiratory effort, no accessory muscle use Cardiovascular: Heart regular in rate and rhythm, No murmurs, gallops, or rubs No peripheral edema Abdominal: Soft Nontender, no guarding, rebound or rigidity Abdomen moving with respiration Normoactive bowel sounds Skin: superficial wounds, over the heel of left foot, no active bleeding, no swelling , no tenderness . blanching erythema over the bilateral legs and arms , no tenderness no induration Extremities: No digital cyanosis No clubbing Pedal pulses intact and symmetrical Radial pulses intact and symmetrical No calf tenderness Psychiatric: Alert and oriented to person, place and time Neuro Muscles Strength 5/5 in all 4 extremities Sensation to light touch grossly present throughout Past Medical History Past Medical History: Asthma, Pneumonia, Seizure Disorder Additional Past Medical History / Comment(s): pt states she had a seizure x 1 ye ar ago. History of Any Multi-Drug Resistant Organisms: None Reported Past Surgical History: No Surgical Hx Reported Past Anesthesia/Blood Transfusion Reactions: No Reported Reaction Past Psychological History: Anxiety, Depression Smoking Status: Current every day smoker, Vaper Past Alcohol Use History: Occasional Past Drug Use History: Heroin, Methamphetamine, Opiates - Past Family History Mother Family Medical History: No Reported History Additional Family Medical History / Comment(s): Migranes Father Family Medical History: Diabetes Mellitus, Hypertension Additional Family Medical History / Comment(s): Neuropathy Medications and Allergies Home Medications Medication Instructions Recorded Confirmed Type No Known Home Medications 07/16/23 07/16/23 History Allergies Allergy/AdvReac Type Severity Reaction Status Date / Time banana Allergy Rash/Hives Verified 07/16/23 19:43 carrot Allergy Anaphylaxis Verified 07/16/23 19:43 egg Allergy Rash/Hives Verified 07/16/23 19:43 milk Allergy Rash/Hives Verified 07/16/23 19:43 parsley Allergy Anaphylaxis Verified 07/16/23 19:43 walnut Allergy Rash/Hives Verified 07/16/23 19:43 Physical Exam Vitals: Vital Signs Temp Pulse Pulse Resp BP BP Pulse Ox 07/17/23 08:50 98.3 F 95 18 119/82 94 L 07/17/23 00:21 98.7 F 92 20 115/58 97 07/17/23 00:04 97.8 F 92 18 123/74 98 Cranial Nerve Examination - Cranial Nerves Cranial Nerve II- Optic: Intact Cranial Nerve III- Oculomotor: Intact Cranial Nerve IV- Trochlear: Intact Cranial Nerve V- Trigeminal: Intact Cranial Nerve - Abducens: Intact Cranial Nerve VII- Facial: Intact Cranial Nerve VIII- Auditory: Intact Cranial Nerve IX- Glossopharyngeal: Intact Cranial Nerve X- Vagus: Intact Cranial Nerve XI- Accessory: Intact Cranial Nerve XII- Hypoglossal: Intact Results CBC & Chem 7: 07/17/23 11:15 07/17/23 11:15 Labs: Abnormal Lab Results - Last 24 Hours (Table) 07/17/23 Range/Units 11:15 Chloride 108 H (98-107) mmol/L Carbon Dioxide 20 L (22-30) mmol/L Assessment and Plan Assessment: superficial wounds over heels of left foot honey dressing avoid tight fitting shoes depression and suicidal ideation management per psych blood work reviewed , unremarkable UA dirty sample thank you for this consultation
--- NOTE | 2023-07-18 11:08 | P.PN ---
Progress Note - Text Progress Note Date: 07/18/23 Interval history: Patient was seen laying in bed today and was directable and agreeable to speak with medical technical writer. Patient states that she is not tolerating the Abilify well, was asking to have it switched to something else. We spoke about other options and patient was agreeable to try Seroquel for mood stabilization/insomnia for tonight. She claims that her mood and anxiety have been mildly improving, mainly keeping herself on the unit. Has been up for meals, more logical today in her thought process. At this time patient denies any suicidal or homicidal ideations intent or plan. Denies any Auditory or visual hallucinations. Patient denies any side effects from the medications and has been compliant with meds. Mental status exam: General Appearance: Patient appears to be stated age is alert, directable, attempts to be cooperative. Behavior: No agitated behavior. Patient is calm and directable, improving mildly Speech: Patient's speech is fluent and nonpressured. [place] Mood/Affect: Mood is improving mildly, affect is congruent and constricted. Suicidality/Homicidality: Patient denies having any suicidal or homicidal ideation intent or plan. Perceptions: Patient denies any auditory or visual hallucinations. Though content/process: There is no evidence of any delusional thought content and thought process is linear and goal-directed. [place], poverty of content Memory and concentration: AOX3, grossly intact for the purposes of this session Judgment and insight: Poor Assessment/Plan: Continue with current diagnosis. Patient continues to meet criteria for inpatient psychiatric admission for symptom stabilization and safety. Patient will be maintained on current psychotropic medication regimen, with the exception of replacing the Abilify with Seroquel 50 mg nightly for mood stabilization/sleep. Monitor for medication compliance and for any psychotropic medication side effects. Will continue to monitor ongoing response to treatment. Encouraged participation in milieu.
[2023-07-18] MEDS ORDERED: QUEtiapine 50 MG TAB PO SCH (21:00)
[2023-07-18] MEDS: QUEtiapine 25 MG TAB PO SCH (21:39)
--- NOTE | 2023-07-19 20:52 | P.PN ---
Progress Note - Text Progress Note Date: 07/19/23 In-Patient Follow-up Chief Complaint: I am better Subjective: The patient noted that she came to the hospital after a suicide attempt by taking overdone of Methamphetamine. The patient noted that she did it intentionally not recreationally. The patient noted that she has history of 7 suicidal attempts in the past. Her last attempt was one and a half year ago by overdosing on Xanax. All other attempts were cutting herself. The patient noted that she started cutting herself age 19. The patient noted that the current episode was secondary to family issues. She noted having discord with her sister and mother. The discord was over her use of drugs. Her drug of choice is weed. As per patent, she only does weed and no other drugs but started doing methamphetamine recetly. She denied use of Alcohol or other drugs. The patient noted that she started getting depressed 2 months ago and steadily got worse. Her depressive symptomatology consists of anger, argumentativeness, sadness off and on, feeling of worthlessness. The patient denied any hopelessness, guilt, sleep impairment, appetite disturbance, impaired concentration, or attention. Her suicidal attempts were due to sever anger and impulsivity. She does not contemplate suicide. The patient noted that she is not feeling any depression at present. Leading questions: The patient denied Depression and Anxiety. Denied SI or HI. Denied symptoms consistent with psychosis. The patient has history of approximately 15 admissions to different hospitals. Her average stay in the hospital is for 2-3 days. The patient noted that her father was diagnosed with depression. and sister suffer from depression. No one has been hospitalized. They have not sought any out-pt. She denied any h/o suicide or homicide in the in-blood relatives. Sleep and Appetite: Good. Interim History: Behavioral Changes: PRN meds/isolation/restraints/ change in status: none Change in medical condition: No change. Change in medications: No change. Side effects from Medications: None. Objective- MSE: Alert and attentive. Orientation times three. Dressed and Groomed: Appropriately. Pleasant and cooperative. Psychomotor Activity: Normal. Speech: Normal in tone, quality, and quantity. Mood: I feel good Affect: Superficial, shallow. indifferent SI or HI: None. Perceptual disturbance: None. Thought Content: No paranoia or other delusional thinking noted. Thought Process: Normal. Cognition: Intact Judgment and Insight: Poor. AIMS: Normal. Labs: . Reviewed labs with patient. Diagnosis: Depressive disorder, NOS Polysubstance abuse. Plan and recommendation: Continue current Medications. Monitor MS and side effects of medications and adjust medications accordingly. Provide supportive psychotherapy. The patient provided psychoeducation. The patient provided Substance abuse counseling. Smoke cessation therapy. Medication Consent with explanation of risk/benefits and side effects: Explained and obtained.
--- NOTE | 2023-07-20 12:37 | P.PN ---
Progress Note - Text Progress Note Date: 07/20/23 In-Patient Follow-up Chief Complaint: I am doing good Subjective: The patient noted feeling fine. Her depression has improved. She has no complaints today. She denied any side effects of medications. She has been going to groups. Her interaction with peers and staff is good. The patient noted that she is homeless for past 1 year. She was living with couple of friends before that. She noted that she moved out of home at age 21. She also noted that she has a 7 years old son. He is in custody of her parents. The patient is very mad about this. The son was taken away from the patient due to her substance abuse. Leading questions: The patient admitted to Anxiety. Denied SI or HI. Denied symptoms consistent with psychosis Sleep and Appetite: Fine. Interim History: Behavioral Changes: PRN meds/isolation/restraints/ change in status: None Change in medical condition: No change. Change in medications: No change. Side effects from Medications: None. Objective- MSE: Alert and attentive. Orientation times three. Dressed and Groomed: Appropriately. Pleasant and cooperative. Psychomotor Activity: Normal. Speech: Normal in tone, quality, and quantity. Mood: I feel good Affect: Angry SI or HI: None. Perceptual disturbance: None. Thought Content: No paranoia or other delusional thinking noted. Thought Process: Normal. Cognition: Intact Judgment and Insight: Poor AIMS: Normal. Labs: Reviewed with patients. Diagnosis: no change. Plan and recommendation: Continue current Medications. Monitor MS and side effects of medications and adjust medications accordingly. Provide supportive psychotherapy. The patient provided psychoeducation. The patient provided Substance abuse counseling. Smoke cessation therapy. The patient to continue attending the hummel activities. Medication Consent with explanation of risk/benefits and side effects: Explained and obtained.
[2023-07-21] MEDS: ACETAMINOPHEN TAB 325 MG TAB PO PRN (15:58)
--- NOTE | 2023-07-21 21:04 | P.PN ---
Progress Note - Text Progress Note Date: 07/21/23 n-Patient Follow-up Chief Complaint: I doing fine Subjective: The patient noted that she feels good. She has been compliant with treatment recommendations. The patient noted that she has been attending all the groups. Her interaction with peers and staff is good. She has not entertained any suicidal or homicidal ideations since the day of admission. On further exploration, the patient noted that her anger and disgust lead to impulsive suicidal gesture. She said that she had to vent her feelings. She did not have the thoughts of dying but acted out to punish parent in a self-destructive way. She has mentioned that most her previous cutting behavior were due to similar reasons. She does not feel depressed or anxious. The patient noted that she is back to her normal self. On Leading questions: The patient denied depression and Anxiety. Denied SI or HI. Denied symptoms consistent with psychosis Sleep and Appetite: Fine. Interim History: Behavioral Changes: PRN meds/isolation/restraints/ change in status: None Change in medical condition: No change. Change in medications: No change. Side effects from Medications: None. Objective- MSE: Alert and attentive. Orientation times three. Dressed and Groomed: Appropriately. Pleasant and cooperative. Psychomotor Activity: Normal. Speech: Normal in tone, quality, and quantity. Mood: I feel good Affect: consistent with mood. SI or HI: None. Perceptual disturbance: None. Thought Content: No paranoia or other delusional thinking noted. Thought Process: Normal. Cognition: Intact Judgment and Insight: Fair AIMS: Normal. Labs: no new labs. Diagnosis: no change. Plan and recommendation: Continue current Medications. Monitor MS and side effects of medications and adjust medications accordingly. Provide supportive psychotherapy. The patient provided psychoeducation. The patient provided Substance abuse counseling. Smoke cessation therapy. The patient to continue attending the hummel activities. Medication Consent with explanation of risk/benefits and side effects: Explained and obtained.
[2023-07-22 07:30] VITALS: TEMP 98.1
--- NOTE | 2023-07-22 21:05 | P.PN ---
Progress Note - Text Progress Note Date: 07/22/23 In-Patient Follow-up Chief Complaint: mother did not pick-up the phone Subjective: The patient noted her mother did not pick-up the phone when she called her. She left a message but did not get call back. Her father noted that he cannot have her because of the custody case over her child. The patient became sad and tearful after she learnt that she cannot go back to her parents. The patient noted that she was very depressed, refused to seek help and walked out of the house year and half ago. Leaving the child with her parents. Her parents cared for her son and filed for the custody. She is on the streets since then. She lived with two of her friends for a short period The patient noted that she has made a lot of bad choices in her life since age 19. She stated that she does not like to be depressed. She states her depression is expressed with anger. She noted in the initial phase of depression she shuts herself, isolates, lacks motivation and interest then she becomes agitated, irritable, and paces. According to the patient she gets suicidal in the second phase. She noted that she has had at least 4 bouts of distinct episodes of depression. The first one was at age 19 followed by age 21, 24 and the current one. In between these bouts she does fine. She unable to give any clear symptoms of manic episodes. She has been diagnosed with Bipolar disorder in the past. The patient was suggested to increase the Zoloft to address her depression, the patient noted she gets very tried on Zoloft. Discussed alternate antidepressant in conjunction with Lamictal. The patient consented for Celexa. Will d/c Zoloft and initiate Celexa 20 mg po daily and Lamictal 25 mg po daily. She has been compliant with treatment recommendations. The patient noted that she has been attending all the groups. Her interaction with peers and staff is good. On Leading questions: The patient denied depression and Anxiety. Denied SI or HI. Denied symptoms consistent with psychosis Sleep and Appetite: Fine. Interim History: Behavioral Changes: PRN meds/isolation/restraints/ change in status: None Change in medical condition: No change. Change in medications: No change. Side effects from Medications: None. Objective- MSE: Alert and attentive. Orientation times three. Dressed and Groomed: Appropriately. Pleasant and cooperative. Psychomotor Activity: Normal. Speech: Normal in tone, quality, and quantity. Mood: I dont want to depressed Affect: Sad, tearful SI or HI: None. Perceptual disturbance: None. Thought Content: No paranoia or other delusional thinking noted. Thought Process: Normal. Cognition: Intact Judgment and Insight: Poor. AIMS: Normal. Labs: no new labs. Diagnosis: no change. Plan and recommendation: D/C Zoloft. Start Celexa 20 mg daily. Lamictal 25 po daily. Monitor MS and side effects of medications and titrate medications accordingly. Provide supportive psychotherapy. The patient provided psychoeducation. The patient provided Substance abuse counseling. Smoke cessation therapy. The patient to continue attending the hummel activities. Medication Consent with explanation of risk/benefits and side effects: Explained and obtained.
[2023-07-23] MEDS: CITALOPRAM HYDROBROMIDE 20 MG TAB PO SCH (08:39)
[2023-07-23] MEDS: lamoTRIgine 25 MG TAB PO STA (14:51)
[2023-07-24] MEDS: lamoTRIgine 25 MG TAB PO SCH (08:51)
--- NOTE | 2023-07-24 14:03 | P.PN ---
Subjective Progress Note Date: 07/24/23 Principal diagnosis: IMPRESSIONS: Depressive disorder unspecified, rule out bipolar disorder depression Methamphetamine use disorder Opioid abuse Cannabis use disorder Nicotine dependence Patient Name: Morenita Coronado Date of : 89 Patient Status: Inpatient Attending Provider: Ton Barksdale Date: 07/24/23 Initialization Date: 07/22/23 21:03 Subjective data: The patient was seen and chart was reviewed and case discussed with the nursing staff Patient was seen in her room where she was resting comfortably She states that she has made good progress since she has been here He states that he is not hearing any voices or seeing things She states that she came in here because of some interpersonal conflicts with her parents She currently denies any suicidal or homicidal ideations She denies any auditory or visual hallucinations She has been compliant with treatment recommendations. She reports that she had thoughts of wanting to overdose at the time of admission but she did not act on it Sleep and Appetite: Fine. Interim History: Behavioral Changes: PRN meds/isolation/restraints/ change in status: None Change in medical condition: No change. Change in medications: No change. Side effects from Medications: None. Objective- MSE: Alert and attentive. Orientation times three. Dressed and Groomed: Appropriately. Pleasant and cooperative. Psychomotor Activity: Normal. Speech: Normal in tone, quality, and quantity. Mood: [place] good Affect: Euthymic SI or HI: None. Perceptual disturbance: None. Thought Content: No paranoia or other delusional thinking noted. Thought Process: Normal. Cognition: Intact Judgment and Insight: Poor. AIMS: Normal. Labs: no new labs. Diagnosis: Depressive disorder unspecified, rule out bipolar disorder depression Methamphetamine use disorder Opioid abuse Cannabis use disorder Nicotine dependence Plan and recommendation: Celexa 20 mg daily. Lamictal 25 po daily. Monitor MS and side effects of medications and titrate medications accordingly. Provide supportive psychotherapy. The patient provided psychoeducation. The patient provided Substance abuse counseling. Smoke cessation therapy. The patient to continue attending the hummel activities. Medication Consent with explanation of risk/benefits and side effects: Explained and obtained. Bud Palomino MD Objective - Vital Signs Vital signs: Vital Signs Temp 98.1 F 07/24/23 06:00 Pulse 68 07/24/23 06:00 Resp 16 07/24/23 06:00 BP 126/65 07/24/23 06:00 Pulse Ox 100 07/24/23 06:00 FiO2 - Labs CBC & Chem 7: 07/17/23 11:15 07/17/23 11:15
--- NOTE | 2023-07-25 11:59 | P.PN ---
Subjective Progress Note Date: 07/25/23 Principal diagnosis: IMPRESSIONS: Depressive disorder unspecified, rule out bipolar disorder depression Methamphetamine use disorder Opioid abuse Cannabis use disorder Nicotine dependence Patient Name: Morenita Coronado Date of : [birth year] Patient Status: Inpatient Attending Provider: Ton Barksdale Date: 07/25/23 Initialization Date: 07/22/23 21:03 Subjective data: The patient was seen and chart was reviewed and case discussed with the nursing staff Patient was seen in her room where she was resting comfortably she denies any issues or concerns at this time She said that she slept better She currently denies any suicidal or homicidal ideations She denies any auditory or visual hallucinations She has been compliant with treatment recommendations. She reports that she had thoughts of wanting to overdose at the time of admission but she did not act on it Sleep and Appetite: Fine. Interim History: Behavioral Changes: PRN meds/isolation/restraints/ change in status: None Change in medical condition: No change. Change in medications: No change. Side effects from Medications: None. Objective- MSE: Alert and attentive. Orientation times three. Dressed and Groomed: Appropriately. Pleasant and cooperative. Psychomotor Activity: Normal. Speech: Normal in tone, quality, and quantity. Mood: [place] good Affect: Euthymic SI or HI: None. Perceptual disturbance: None. Thought Content: No paranoia or other delusional thinking noted. Thought Process: Normal. Cognition: Intact Judgment and Insight: Poor. AIMS: Normal. Labs: no new labs. Diagnosis: Depressive disorder unspecified, rule out bipolar disorder depression Methamphetamine use disorder Opioid abuse Cannabis use disorder Nicotine dependence Plan and recommendation: Celexa 20 mg daily. Lamictal 25 po daily. Monitor MS and side effects of medications and titrate medications accordingly. Provide supportive psychotherapy. The patient provided psychoeducation. The patient provided Substance abuse counseling. Smoke cessation therapy. The patient to continue attending the hummel activities. Medication Consent with explanation of risk/benefits and side effects: Explained and obtained. Bud Palomino MD Active Medications Generic Name Dose Route Start Last Admin Trade Name Freq PRN Reason Stop Dose Admin Acetaminophen 650 mg 07/16/23 23:05 07/21/23 15:58 Acetaminophen Tab 325 Mg Tab PO 650 mg Q4HR PRN Administration Mild Pain (Scale 1 to 3) Al Hydroxide/Mg Hydroxide 30 ml 07/16/23 23:05 Mag Hydrox/Al Hydrox/Simeth 355 Ml Bottle PO Q4HR PRN GI Upset Citalopram Hydrobromide 20 mg 07/23/23 09:00 07/25/23 08:31 Citalopram Hydrobromide 20 Mg Tab PO 20 mg DAILY SALVADOR Administration Haloperidol 5 mg 07/16/23 23:05 Haloperidol 5 Mg Tab PO Q6HR PRN Agitation Haloperidol Lactate 5 mg 07/16/23 23:05 Haloperidol Lactate 5 Mg/Ml 1 Ml Vial IM Q6HR PRN Severe Agitation Ibuprofen 600 mg 07/16/23 23:05 Ibuprofen 600 Mg Tab PO Q6HR PRN Moderate Pain (Scale 4 to 6) Lamotrigine 25 mg 07/24/23 09:00 07/25/23 08:31 Lamotrigine 25 Mg Tab PO 25 mg DAILY SALVADOR Administration Lorazepam 1 mg 07/16/23 23:05 Lorazepam 1 Mg Tab PO Q6HR PRN Anxiety Lorazepam 1 mg 07/16/23 23:05 Lorazepam 2 Mg/Ml Inj IM Q6HR PRN Severe Agitation Magnesium Hydroxide 2,400 mg 07/16/23 23:05 Magnesium Hydroxide 2,400 Mg/30 Ml Cup PO DAILY PRN Constipation Nicotine 1 patch 07/17/23 09:00 07/25/23 08:32 Nicotine 14mg/24hr Patch TRANSDERM Not Given DAILY SALVADOR Quetiapine Fumarate 25 mg 07/18/23 21:00 07/24/23 20:59 Quetiapine 25 Mg Tab PO 25 mg HS SALVADOR Administration Objective - Vital Signs Vital signs: Vital Signs Temp 98.1 F 07/24/23 06:00 Pulse 78 07/25/23 08:31 Resp 16 07/24/23 06:00 BP 147/93 07/25/23 08:31 Pulse Ox 100 07/24/23 06:00 FiO2 - Labs CBC & Chem 7: 07/17/23 11:15 07/17/23 11:15
--- NOTE | 2023-07-26 09:27 | P.PN ---
Progress Note - Text Progress Note Date: 07/23/23 In-Patient Follow-up Chief Complaint: I am good Subjective: The patient noted that she is doing ok. She got her first dose of Celexa today. She is being started on Lamictal. The patient noted no side effects from the medications. The patient plans to go to [facility] and go to [facility] there for follow-up. She has been attending groups and interacting with peers and staff well. Overall, patient is slightly better than before. Leading questions: The patient admitted to Depression and Anxiety. Denied SI or HI. Denied symptoms consistent with psychosis Sleep and Appetite: good. Interim History: Behavioral Changes: PRN meds/isolation/restraints/ change in status: None. Change in medical condition: No change. Change in medications: No change. Side effects from Medications: None. Objective- MSE: Alert and attentive. Orientation times three. Dressed and Groomed: Appropriately. Pleasant and cooperative. Psychomotor Activity: Normal. Speech: Normal in tone, quality, and quantity. Mood: Depressed and Anxious. Affect: Appropriate to mood. SI or HI: None. Perceptual disturbance: None. Thought Content: No paranoia or other delusional thinking noted. Thought Process: Normal. Cognition: Intact Judgment and Insight: Fair AIMS: Normal. Labs: no new labs. Diagnosis: No change. Plan and recommendation: Continue current medications. Monitor MS and side effects of medications and adjust medications accordingly. Provide supportive psychotherapy. The patient provided psychoeducation. The patient provided Substance abuse counseling. Smoke cessation therapy. The patient to continue attending the hummel activities. Medication Consent with explanation of risk/benefits and side effects: Explained and obtained.
[2023-07-27 08:23] VITALS: BP 124/78; PULSE 77; RESP 18
--- NOTE | 2023-07-27 14:41 | P.DS ---
Providers Date of admission: 07/16/23 23:01 Expected date of discharge: 07/27/23 Attending physician: Ton Barksdale MD Consults: 07/16/23 23:05 Consult Physician Routine Consulting Provider: [facility] Consult Reason/Comments: Medical H&P Do you want consulting provider notified?: Yes Primary care physician: Stated None - Discharge Diagnosis(es) (1) Bipolar II disorder major depressive with atypical features Status: Acute Priority: High (2) Polysubstance abuse Status: Acute Priority: Medium Hospital Course: Discharge Summary HPI: HPI: Patient presented to the hospital yesterday for psychiatric evaluation. Patient had claimed to the ER that she was feeling depressed having suicidal ideations, was apparently using several different drugs. Patient's urine drug screen resulting positive for marijuana. Patient was previously admitted to the mental health unit a year ago. She was agreeable to see typewriter assembler today, had very poor eye contact, constricted affect. She was vague evasive about her substance use. She was minimizing her need for hospitalization. She claims that she stopped taking her psychiatric medications several months ago. States that she got into a "argument" with her mother. States that they have been arguing a lot recently. Claims that she does not know why they were arguing. States that she is also not allowed to back to her apartment due to "using drugs". She is currently denying any suicidal ideations or homicidal ideations, denying any auditory or visual hallucinations. States that her sleep has been poor, appetite has been fair. Denying any mood swings or agitation. Patient appeared to be fairly nonchalant. PAST PSYCHIATRIC HISTORY: Patient states that she has a history of polysubstance abuse, depression. Patient previously on Abilify Mantena and Prozac. Patient denies any previous psychiatric hospitalizations. Patient denies any psychiatric outpatient follow-up. He did claim that she attempted suicide multiple times before but "failed". Past Medical History: As per ER note IMPRESSIONS: Hospital Course: After admission, the patient was involved on pharmacotherapy. [facility] milieu and individual psychotherapy. Initially, the patient was on Zoloft for her depression. She did not want to take any other medications or change the dose. Finally, accepted to take Lamictal and Celexa. She was on Celexa 20 mg and Lamictal at 50 mg. This dose of Lamictal will need to be titrated as an out-pt. The patient was informed this. She started attended the group sessions and was seen by every day. She gradually improved. Her interaction with staff and peers was good. Overall, the patient was stable to be discharged to a Rehab facility from the hospital. MSE: General Appearance: Patient appears to be thin, short in stature, stated age is alert, curly hair, hesitant and slowed psychomotor functioning. Patient appears to have poor hygiene and grooming. Behavior: Patient is seated without any agitated behavior. Poor eye contact. Evasive, guarded. Speech: Patient's speech is fluent and not pressured. Soft tone of voice. [place] Mood/Affect: Patient reports their mood is depressed and anxious, affect is congruent and constricted. Suicidality/Homicidality: Patient denies having any homicidal ideation intent or plan. Denies any suicidal thoughts, no intent or plan. Perceptions: Patient denies any visual hallucinations and denies any auditory hallucinations Though content/process: [place], hesitant. Poverty of content. Paranoia. Memory and concentration: AOX3, grossly intact for the purposes of this session. Can spell "WORLD" backwards Judgment and insight: poor Diagnosis: Depressive disorder unspecified, rule out bipolar disorder depression Methamphetamine use disorder Opioid abuse Cannabis use disorder Nicotine dependence Plan: The patient to be discharged today. The patient has attained good improvement since admission. He is stable to be followed as an outpatient. The patient is not suicidal or Homicidal. He does not pose any harm to self or others. The patient remains at a greater risk of self-harm or harm to others than general population on a chronic basis due to psychiatric illness and substance abuse. The patient will continue taking following medication post discharge. The importance of medication compliance and maintaining regular appointments at psychiatric out-pt and PCP clinic was explained and encouraged. The patient was also advised to seek alcohol counseling and attend AA meetings. The understood and agreed with the recommendations. emery wheel worker to arrange for and conduct family meeting to ensure safety upon discharge and answer any questions. The neonatal social worker to arrange for patients follow-up appointments at [facility] for psychiatric care along with follow-up with PCP. The patient provided psychoeducation. Advised to call 911 or go to nearest ED or call this hospital in case of acute worsening of symptomatology, severe side effects or having suicidal, homicidal thoughts and feeling unsafe at home. Patient Condition at Discharge: Stable Plan - Discharge Summary New Discharge Prescriptions: New lamoTRIgine [LaMICtal] 25 mg PO DAILY 15 Days #15 tab QUEtiapine [SEROquel] 25 mg PO HS 15 Days #15 tab Citalopram Hydrobromide [CeleXA] 20 mg PO DAILY 15 Days #15 tab Discharge Medication List Citalopram Hydrobromide [CeleXA] 20 mg PO DAILY 15 Days #15 tab 07/26/23 [Rx] QUEtiapine [SEROquel] 25 mg PO HS 15 Days #15 tab 07/26/23 [Rx] lamoTRIgine [LaMICtal] 25 mg PO DAILY 15 Days #15 tab 07/26/23 [Rx] Follow up Appointment(s)/Referral(s): Marlyn Flowers [Other] - [facility] Week Patient Instructions/Handouts: Depression (DC), Anxiety (GEN) Activity/Diet/Wound Care/Special Instructions: Activity and diet as tolerated. Avoid the use of street drugs and alcohol. Take all medications as prescribed. When you need refills on your medications, please contact your medical provider and/or outpatient psychiatrist to have this done. Please go to scheduled outpatient appointment for aftercare treatment. If symptoms return or become worse, call the crisis line at and/or go to the nearest emergency room for evaluation. Pt given discharge instructions, copies of after care, Pt v/u of information. In stable condition. Aware of resources.Belongings returned to patient at discharge, see Personal Property Sheet. Discharge instructions given with verbal understanding, papers signed and copies given in discharge folder. Patient verbalized ready for discharge denying suicidal and homicidal thoughts, verbalized intent to follow up at scheduled psychiatric appointments and take prescribed medications as ordered. Discharge Disposition: HOME SELF-CARE
== END 2023-07-27 13:38 | disposition home or self-care (01) | DRG 753 ==
LOC: EC 18:01 → 3MHU 23:01
PROVIDERS: ADMIT Psychiatry & Neurology Psychiatry; ATTEND Psychiatry & Neurology Psychiatry
DX: F31.81 Bipolar II disorder (principal); F12.10 Cannabis abuse, uncomplicated; F17.290 Nicotine dependence, other tobacco product, uncomplicated; F11.10 Opioid abuse, uncomplicated; G40.909 Epilepsy, unspecified, not intractable, without status epilepticus; G47.00 Insomnia, unspecified; Z87.01 Personal history of pneumonia (recurrent); Z56.0 Unemployment, unspecified; Z59.00 Homelessness unspecified; Z79.899 Other long term (current) drug therapy; Z91.52 Personal history of nonsuicidal self-harm; R45.851 Suicidal ideations
CPT/HCPCS: 80053; 80061; 80306; 81001; 81025; 82075; 83036; 84443; 85025; 87636; 99285

== ENCOUNTER 2023-11-05 06:37 | Emergency (ER) | payer OTHER ==
[2023-11-05] MEDS ORDERED: ACETAMINOPHEN TAB 500 MG TAB ONE (07:11)
[2023-11-05] MEDS ORDERED: levETIRAcetam IV 500 MG/5 ML VIAL ONE (07:11)
[2023-11-05] MEDS ORDERED: SODIUM CHLORIDE 0.9% 1,000 ML BAG ONE (07:15)
== END 2023-11-05 10:22 | disposition home or self-care (01) ==
LOC: EC 06:37
DX: R56.9 Unspecified convulsions (principal)
CPT/HCPCS: 93005; 96360; 99284

== ENCOUNTER 2023-12-30 21:43 | Emergency (ER) | payer OTHER ==
[2023-12-30 21:54] VITALS: RESP 18
--- NOTE | 2023-12-30 21:55 | ED ---
General Adult HPI - General Source: patient Mode of arrival: ambulatory <Anu Barajas - Last Filed: 12/30/23 21:54> <Jamarcus Sosa - Last Filed: 12/30/23 23:08> - General Stated complaint: Chest Pain Time Seen by Provider: 12/30/23 21:54 - History of Present Illness Initial comments: 28-year-old female presenting with chief complaint of chest pain. Patient states that about an hour and a half ago she used crack cocaine and meth. She states that she does crack cocaine every other day and this is her first time doing meth. Chest pain started shortly after. She also is having numbness and tingling in her extremities. No shortness of breath. No signs of distress in triage. (Anu Barajas) - Related Data Previous Rx's Medication Instructions Recorded Citalopram Hydrobromide [CeleXA] 20 mg PO DAILY 15 Days #15 tab 07/26/23 QUEtiapine [SEROquel] 25 mg PO HS 15 Days #15 tab 07/26/23 lamoTRIgine [LaMICtal] 25 mg PO DAILY 15 Days #15 tab 07/26/23 Allergies Allergy/AdvReac Type Severity Reaction Status Date / Time banana Allergy Rash/Hives Verified 12/30/23 21:54 carrot Allergy Anaphylaxis Verified 12/30/23 21:54 egg Allergy Rash/Hives Verified 12/30/23 21:54 milk Allergy Rash/Hives Verified 12/30/23 21:54 parsley Allergy Anaphylaxis Verified 12/30/23 21:54 walnut Allergy Rash/Hives Verified 12/30/23 21:54 Review of Systems ROS Other: All systems not noted in ROS Statement are negative. <Anu Barajas - Last Filed: 12/30/23 21:54> ROS Other: All systems not noted in ROS Statement are negative. <Jamarcus Sosa - Last Filed: 12/30/23 23:08> ROS Statement: Those systems with pertinent positive or pertinent negative responses have been documented in the HPI. Past Medical History Past Medical History: Asthma, Pneumonia, Seizure Disorder Additional Past Medical History / Comment(s): pt states she had a seizure x 1 year ago. History of Any Multi-Drug Resistant Organisms: None Reported Past Surgical History: No Surgical Hx Reported Past Anesthesia/Blood Transfusion Reactions: No Reported Reaction Past Psychological History: Anxiety, Depression Smoking Status: Current every day smoker, Vaper Past Alcohol Use History: Occasional Past Drug Use History: Cocaine, Heroin, Methamphetamine, Opiates - Past Family History Mother Family Medical History: No Reported History Additional Family Medical History / Comment(s): Migranes Father Family Medical History: Diabetes Mellitus, Hypertension Additional Family Medical History / Comment(s): Neuropathy <Anu Barajas - Last Filed: 12/30/23 21:54> General Exam <Anu Barjaas - Last Filed: 12/30/23 21:54> General appearance: alert, in no apparent distress Head exam: Present: atraumatic, normocephalic Eye exam: Present: normal appearance, PERRL ENT exam: Present: normal exam Neck exam: Present: normal inspection. Absent: tenderness, meningismus Respiratory exam: Present: normal lung sounds bilaterally. Absent: respiratory distress, wheezes Cardiovascular Exam: Present: regular rate, normal rhythm GI/Abdominal exam: Present: soft. Absent: distended, guarding Extremities exam: Present: normal inspection Neurological exam: Present: alert, oriented X3 Psychiatric exam: Absent: homicidal ideation, suicidal ideation Skin exam: Present: warm, dry, intact <Jamarcus Sosa - Last Filed: 12/30/23 23:08> - General Exam Comments Initial Comments: Visual Physical Exam Vital signs reviewed General: Well-appearing, nontoxic, no acute distress. Head: Normocephalic, atraumatic Eyes: PERRLA, EOMI ENT: Airway patent Chest: Nonlabored breathing Skin: No visual rash, normal skin tone Neuro: Alert and oriented 3 Musculoskeletal: No gross abnormalities (Anu Barajas) Course Vital Signs 12/30/23 21:50 Temperature 98.2 F Pulse Rate 92 Respiratory 18 Rate Blood Pressure 135/85 O2 Sat by Pulse 100 Oximetry Medical Decision Making <Anu Barajas - Last Filed: 12/30/23 21:54> - Lab Data Result diagrams: 12/30/23 22:00 12/30/23 22:00 <Jamarcus Sosa - Last Filed: 12/30/23 23:08> - Medical Decision Making I performed the quick note portion of this visit, electronically signed Anu Barajas PA-C (Anu Barajas) Was pt. sent in by a medical professional or institution (SALLY Jackson, BUILDING CONSTRUCTION IRONWORKER, urgent care, hospital, or long term...) When possible be specific @ -No Did you speak to anyone other than the patient for history (EMS, parent, family, police, friend...)? What history was obtained from this source @ -No Did you review nursing and triage notes (agree or disagree)? Why? @ -I reviewed and agree with nursing and triage notes Were old charts reviewed (outside hosp., previous admission, EMS record, old EKG, old radiological studies, urgent care reports/EKG's, long term records)? Report findings @ -No old charts were reviewed Differential Palpitations Ventricular arrhythmias, atrial arrhythmias, myocardial infarction, anemia, thyrotoxicosis, electrolyte imbalance, hypokalemia, pulmonary embolism, pulmonary disease, drugs, alcohol, anxiety, stress.... This is not meant to be an all-inclusive list. EKG interpreted by me (3pts min.). @ -[Sinus rhythm rate of 87, MD interval 132, QRS duration 103, QTc [address] segment elevation. X-rays interpreted by me (1pt min.). @ -Chest x-ray negative for acute cardiopulmonary findings CT interpreted by me (1pt min.). @ -[None done U/S interpreted by me (1pt. min.). @ -None done What testing was considered but not performed or refused? (CT, X-rays, U/S, labs)? Why? @ -None What meds were considered but not given or refused? Why? @ -None Did you discuss the management of the patient with other professionals (professionals i.e. SALLY Jackson, BUILDING CONSTRUCTION IRONWORKER, lab, RT, psych nurse, social media content manager, crown buffer, teacher, staff nuclear weapons officer, case technician)? Give summary @ -No Was smoking cessation discussed for >3mins.? @ -No Was critical care preformed (if so, how long)? @ -No Were there social determinants of health that impacted care today? How? (Homelessness, low income, unemployed, alcoholism, drug addiction, transportation, low edu. Level, literacy, decrease access to med. care, snf, rehab)? @ -No Was there de-escalation of care discussed even if they declined (Discuss DNR or withdrawal of care, Hospice)? DNR status @ -No What co-morbidities impacted this encounter? (DM, HTN, Smoking, COPD, CAD, Cancer, CVA, ARF, Chemo, Hep., AIDS, mental health diagnosis, sleep apnea, morbid obesity)? @ -Meth amphetamine and cocaine abuse Was patient admitted / discharged? Hospital course, mention meds given and route, prescriptions, significant lab abnormalities, going to OR and other pertinent info. @ -[28-year-old female with chest tightness after using crack cocaine and methamphetamine. Patient states she is going to drug rehabilitation program tomorrow. Patient is well-appearing with stable vitals. She is in sinus rhythm without ischemic changes. Laboratory testing is unremarkable. Patient is stable for discharge at this time and should go to drug rehabilitation tomorrow as planned. Undiagnosed new problem with uncertain prognosis? @ -No Drug Therapy requiring intensive monitoring for toxicity (Heparin, Nitro, Insulin, Cardizem)? @ -No Were any procedures done? @ -No Diagnosis/symptom? @Cocaine and methamphetamine abuse Acute, or Chronic, or Acute on Chronic? @Acute Uncomplicated (without systemic symptoms) or Complicated (systemic symptoms)? @ -Default Side effects of treatment? @ -No Exacerbation, Progression, or Severe Exacerbation? @ -No Poses a threat to life or bodily function? How? (Chest pain, USA, PA, pneumonia, PE, COPD, DKA, ARF, appy, cholecystitis, CVA, Diverticulitis, Homicidal, Suicidal, threat to staff... and all critical care pts) @ -Yes, illicit drug abuse (Jamarcus Sosa) - Lab Data Lab Results 12/30/23 12/30/23 12/30/23 Range/Units 22:00 22:00 22:00 WBC 8.9 (3.8-10.6) k/uL RBC 4.98 (3.80-5.40) m/uL Hgb 15.0 (11.4-16.0) gm/dL Hct 46.3 H (34.0-46.0) % MCV 92.9 (80.0-100.0) fL MCH 30.0 (25.0-35.0) pg MCHC 32.3 (31.0-37.0) g/dL RDW 12.4 (11.5-15.5) % Plt Count 329 (150-450) k/uL MPV 7.5 Neutrophils % 60 % Lymphocytes % 30 % Monocytes % 5 % Eosinophils % 3 % Basophils % 1 % Neutrophils # 5.4 (1.3-7.7) k/uL Lymphocytes # 2.7 (1.0-4.8) k/uL Monocytes # 0.4 (0-1.0) k/uL Eosinophils # 0.3 (0-0.7) k/uL Basophils # 0.1 (0-0.2) k/uL PT 11.4 (10.0-12.5) sec INR 1.1 (<1.2) APTT 26.6 (22.0-30.0) sec Sodium 138 (137-145) mmol/L Potassium 4.2 (3.5-5.1) mmol/L Chloride 108 H (98-107) mmol/L Carbon Dioxide 24 (22-30) mmol/L Anion Gap 6 mmol/L BUN 10 (7-17) mg/dL Creatinine 0.72 (0.52-1.04) mg/dL Est GFR (CKD-EPI)AfAm >90 (>60 ml/min/1.73 sqM) Est GFR (CKD-EPI)NonAf >90 (>60 ml/min/1.73 sqM) Glucose 90 (74-99) mg/dL Calcium 9.4 (8.4-10.2) mg/dL Magnesium 1.7 (1.6-2.3) mg/dL Total Bilirubin 1.2 (0.2-1.3) mg/dL AST 23 (14-36) U/L ALT 13 (4-34) U/L Alkaline Phosphatase 59 (38-126) U/L Troponin I (0.000-0.034) ng/mL Total Protein 6.9 (6.3-8.2) g/dL Albumin 4.4 (3.5-5.0) g/dL 12/30/23 Range/Units 22:00 WBC (3.8-10.6) k/uL RBC (3.80-5.40) m/uL Hgb (11.4-16.0) gm/dL Hct (34.0-46.0) % MCV (80.0-100.0) fL MCH (25.0-35.0) pg MCHC (31.0-37.0) g/dL RDW (11.5-15.5) % Plt Count (150-450) k/uL MPV Neutrophils % % Lymphocytes % % Monocytes % % Eosinophils % % Basophils % % Neutrophils # (1.3-7.7) k/uL Lymphocytes # (1.0-4.8) k/uL Monocytes # (0-1.0) k/uL Eosinophils # (0-0.7) k/uL Basophils # (0-0.2) k/uL PT (10.0-12.5) sec INR (<1.2) APTT (22.0-30.0) sec Sodium (137-145) mmol/L Potassium (3.5-5.1) mmol/L Chloride (98-107) mmol/L Carbon Dioxide (22-30) mmol/L Anion Gap mmol/L BUN (7-17) mg/dL Creatinine (0.52-1.04) mg/dL Est GFR (CKD-EPI)AfAm (>60 ml/min/1.73 sqM) Est GFR (CKD-EPI)NonAf (>60 ml/min/1.73 sqM) Glucose (74-99) mg/dL Calcium (8.4-10.2) mg/dL Magnesium (1.6-2.3) mg/dL Total Bilirubin (0.2-1.3) mg/dL AST (14-36) U/L ALT (4-34) U/L Alkaline Phosphatase (38-126) U/L Troponin I <0.012 (0.000-0.034) ng/mL Total Protein (6.3-8.2) g/dL Albumin (3.5-5.0) g/dL Disposition <Anu Barajas - Last Filed: 12/30/23 21:54> Is patient prescribed a controlled substance at d/c from ED?: No Time of Disposition: 23:08 <Jamarcus Sosa - Last Filed: 12/30/23 23:08> Clinical Impression: Polysubstance abuse Disposition: HOME SELF-CARE Condition: Fair Instructions (If sedation given, give patient instructions): Polysubstance Abuse (ED) Referrals: Breonna Augustin MD [Primary Care Provider] - 1-2 days
[2023-12-30 22:28] LABS: Basophils # (A) 0.1 k/uL (0-0.2); Basophils % (A) 1 %; Eosinophils # (A) 0.3 k/uL (0-0.7); Eosinophils % (A) 3 %; HCT 46.3 % (34.0-46.0); Lymphocytes # (A) 2.7 k/uL (1.0-4.8); Lymphocytes % (A) 30 %; MCHC 32.3 g/dL (31.0-37.0); MCV 92.9 fL (80.0-100.0); Mean Platelet Volume 7.5; Monocytes # (A) 0.4 k/uL (0-1.0); Monocytes % (A) 5 %; Neutrophils # (A) 5.4 k/uL (1.3-7.7); Neutrophils % (A) 60 %; Platelet Count 329 k/uL (150-450); RBC 4.98 m/uL (3.80-5.40); RDW 12.4 % (11.5-15.5); WBC 8.9 k/uL (3.8-10.6)
[2023-12-30 22:39] LABS: INR 1.1 (<1.2); Partial Thromboplastin Time 26.6 sec (22.0-30.0); Prothrombin Time 11.4 sec (10.0-12.5)
[2023-12-30 22:40] LABS: ALT 13 U/L (4-34); AST 23 U/L (14-36); African American GFR (CKD) >90 (>60 ml/min/1.73 sqM); Albumin 4.4 g/dL (3.5-5.0); Alkaline Phosphatase 59 U/L (38-126); Anion Gap 6 mmol/L; Blood Urea Nitrogen 10 mg/dL (7-17); Calcium 9.4 mg/dL (8.4-10.2); Carbon Dioxide 24 mmol/L (22-30); Chloride 108 mmol/L (98-107); Glucose 90 mg/dL (74-99); Magnesium 1.7 mg/dL (1.6-2.3); Non-African American GFR(CKD) >90 (>60 ml/min/1.73 sqM); Potassium 4.2 mmol/L (3.5-5.1); Sodium 138 mmol/L (137-145); Total Bilirubin 1.2 mg/dL (0.2-1.3); Total Protein 6.9 g/dL (6.3-8.2)
--- NOTE | 2023-12-30 22:44 | XR ---
EXAMINATION TYPE: XR chest 2V DATE OF EXAM: 12/30/2023 COMPARISON: Chest x-ray April 26, 2021 HISTORY: Chest pain. TECHNIQUE: Frontal and lateral views of the chest are obtained. FINDINGS: There is no focal air space opacity, pleural effusion, or pneumothorax seen. The cardiac silhouette size remains within normal limits. The osseous structures are intact. IMPRESSION: No acute cardiopulmonary process. No significant change from prior. [facility], , 12/30/2023 10:42 PM
[2023-12-30 23:36] VITALS: BP 130/72; PULSE 72
[2023-12-30 23:37] VITALS: TEMP 98.2
== END 2023-12-30 23:20 | disposition home or self-care (01) ==
LOC: EC 21:43
CPT/HCPCS: 36415; 71046; 80053; 83735; 84484; 85025; 85610; 85730; 93005

== ENCOUNTER 2024-01-24 18:45 | Emergency (ER) | payer OTHER ==
[2024-01-24 19:03] VITALS: TEMP 98
[2024-01-24 21:06] LABS: Amphetamine Screen,Urine Not Detected (NotDetected); Barbiturate Screen,Urine Not Detected (NotDetected); Benzodiazepines Screen,Urine Not Detected (NotDetected); Cocaine Screen,Urine Not Detected (NotDetected); Methadone Screen, Urine Not Detected (NotDetected); Opiate Screen,Urine Not Detected (NotDetected); Oxycodone Screen, Urine Not Detected (NotDetected); Phencyclidine Screen,Urine Not Detected (NotDetected); Tricyclic Antidepressant,Urine Not Detected (NotDetected); Urn Cannabinoid Scrn Detected (NotDetected)
--- NOTE | 2024-01-24 21:33 | ED ---
Psych HPI - General Chief Complaint: Psychiatric Symptoms Stated Complaint: Mental health,Withdrawal Time Seen by Provider: 01/24/24 19:05 Source: patient, RN notes reviewed Mode of arrival: ambulatory Limitations: no limitations - History of Present Illness Initial Comments: 28-year-old female presents emergency department chief complaint of depression, suicide nation. Patient states that she has had increasing depression. She states she does see current psychiatric services and is on medications. Patient states that she is always had thoughts but states that she had worsening thoughts. She states that she uses crack and fentanyl. Patient's last use was today. Patient denies any self-harm denies any alcohol abuse - Related Data Home Medications Medication Instructions Recorded Confirmed No Known Home Medications 01/24/24 01/24/24 Allergies Allergy/AdvReac Type Severity Reaction Status Date / Time banana Allergy Rash/Hives Verified 01/24/24 20:53 carrot Allergy Anaphylaxis Verified 01/24/24 20:53 egg Allergy Rash/Hives Verified 01/24/24 20:53 milk Allergy Rash/Hives Verified 01/24/24 20:53 parsley Allergy Anaphylaxis Verified 01/24/24 20:53 walnut Allergy Rash/Hives Verified 01/24/24 20:53 Review of Systems ROS Statement: Those systems with pertinent positive or pertinent negative responses have been documented in the HPI. ROS Other: All systems not noted in ROS Statement are negative. Past Medical History Past Medical History: Asthma, Pneumonia, Seizure Disorder Additional Past Medical History / Comment(s): pt states she had a seizure x 1 year ago. History of Any Multi-Drug Resistant Organisms: None Reported Past Surgical History: No Surgical Hx Reported Past Anesthesia/Blood Transfusion Reactions: No Reported Reaction Past Psychological History: Anxiety, Depression Smoking Status: Current every day smoker, Vaper Past Alcohol Use History: Occasional Past Drug Use History: Cocaine, Heroin, Methamphetamine, Opiates - Past Family History Mother Family Medical History: No Reported History Additional Family Medical History / Comment(s): Migranes Father Family Medical History: Diabetes Mellitus, Hypertension Additional Family Medical History / Comment(s): Neuropathy General Exam Limitations: no limitations General appearance: alert, in no apparent distress Head exam: Present: atraumatic, normocephalic, normal inspection Eye exam: Present: normal appearance, PERRL, EOMI. Absent: scleral icterus, conjunctival injection, periorbital swelling ENT exam: Present: normal exam, normal oropharynx, mucous membranes moist Neck exam: Present: normal inspection, full ROM. Absent: tenderness, meningismus, lymphadenopathy Respiratory exam: Present: normal lung sounds bilaterally. Absent: respiratory distress, wheezes, rales, rhonchi, stridor Cardiovascular Exam: Present: regular rate, normal rhythm, normal heart sounds. Absent: systolic murmur, diastolic murmur, rubs, gallop, clicks Neurological exam: Present: alert, oriented X3 Psychiatric exam: Present: depressed, flat affect Course Vital Signs 01/24/24 01/24/24 19:00 22:51 Temperature 98 F Pulse Rate 87 60 Respiratory 16 18 Rate Blood Pressure 129/84 94/54 O2 Sat by Pulse 96 97 Oximetry Medical Decision Making - Medical Decision Making Was pt. sent in by a medical professional or institution (, PA, SERVICE TRAINER, urgent care, hospital, or jail...) When possible be specific @ -No Did you speak to anyone other than the patient for history (EMS, parent, family, police, friend...)? What history was obtained from this source @ -No Did you review nursing and triage notes (agree or disagree)? Why? @ -I reviewed and agree with nursing and triage notes Were old charts reviewed (outside hosp., previous admission, EMS record, old EKG, old radiological studies, urgent care reports/EKG's, jail records)? Report findings @ -No old charts were reviewed Differential Diagnosis (chest pain, altered mental status, abdominal pain women, abdominal pain men, vaginal bleeding, weakness, fever, dyspnea, syncope, headache, dizziness, GI bleed, back pain, seizure, CVA, palpatations, mental health, musculoskeletal)? @ -Differential Mental Health Depression, anxiety, bipolar, psychosis, schizophrenia, borderline personality, situational depression, adjustment disorder, behavioral disorder, brain tumor, malingering, substance abuse, encephalopathy, medication reaction, dementia, hypothyroidism, degenerative neurologic disorder, lupus.... This is not meant to be all-inclusive list EKG interpreted by me (3pts min.). @ -None X-rays interpreted by me (1pt min.). @ -None done CT interpreted by me (1pt min.). @ -None done U/S interpreted by me (1pt. min.). @ -None done What testing was considered but not performed or refused? (CT, X-rays, U/S, labs)? Why? @ -None What meds were considered but not given or refused? Why? @ -None Did you discuss the management of the patient with other professionals (professionals i.e. , PA, SERVICE TRAINER, lab, RT, psych nurse, psychologist social, foot piece assembler, teacher, reserve officer, spring encaser)? Give summary @ -[EPS evaluated the patient discussed case with psychiatrist who recommends outpatient treatment patient safety plan to family. Was smoking cessation discussed for >3mins.? @ -No Was critical care preformed (if so, how long)? @ -No Were there social determinants of health that impacted care today? How? (Homelessness, low income, unemployed, alcoholism, drug addiction, transportation, low edu. Level, literacy, decrease access to med. care, alf, rehab)? @ -No Was there de-escalation of care discussed even if they declined (Discuss DNR or withdrawal of care, Hospice)? DNR status @ -No What co-morbidities impacted this encounter? (DM, HTN, Smoking, COPD, CAD, Cancer, CVA, ARF, Chemo, Hep., AIDS, mental health diagnosis, sleep apnea, morbid obesity)? @ -None Was patient admitted / discharged? Hospital course, mention meds given and route, prescriptions, significant lab abnormalities, going to OR and other pertinent info. @ -Discharge patient evaluated by EPS and safety plan with mother who will observe patient and accepts responsibility Undiagnosed new problem with uncertain prognosis? @ -No Drug Therapy requiring intensive monitoring for toxicity (Heparin, Nitro, Insulin, Cardizem)? @ -No Were any procedures done? @ -No Diagnosis/symptom? @ -Depression Acute, or Chronic, or Acute on Chronic? @ -Acute Uncomplicated (without systemic symptoms) or Complicated (systemic symptoms)? @ -Uncomplicated Side effects of treatment? @ -No Exacerbation, Progression, or Severe Exacerbation? @ -No Poses a threat to life or bodily function? How? (Chest pain, [place], [place], pneumonia, PE, COPD, DKA, ARF, appy, cholecystitis, CVA, Diverticulitis, Homicidal, Suicidal, threat to staff... and all critical care pts) @ -No - Lab Data Lab Results 01/24/24 Range/Units 20:40 Urine Opiates Screen Not Detected (NotDetected) Ur Oxycodone Screen Not Detected (NotDetected) Urine Methadone Screen Not Detected (NotDetected) Ur Barbiturates Screen Not Detected (NotDetected) U Tricyclic Antidepress Not Detected (NotDetected) Ur Phencyclidine Scrn Not Detected (NotDetected) Ur Amphetamines Screen Not Detected (NotDetected) U Methamphetamines Scrn Not Detected (NotDetected) U Benzodiazepines Scrn Not Detected (NotDetected) Urine Cocaine Screen Not Detected (NotDetected) U Marijuana (THC) Screen Detected H (NotDetected) Disposition Clinical Impression: Depression Disposition: HOME SELF-CARE Condition: Stable Additional Instructions: Please return to the Emergency Department if symptoms worsen or any other concerns. Is patient prescribed a controlled substance at d/c from ED?: No Referrals: Breonna Augustin MD [Primary Care Provider] - 1-2 days Time of Disposition: 22:43
[2024-01-24 22:57] VITALS: BP 94/54; PULSE 60; RESP 18
== END 2024-01-24 23:07 | disposition home or self-care (01) ==
LOC: EC 18:45
DX: F32.A Depression, unspecified (principal); F17.290 Nicotine dependence, other tobacco product, uncomplicated; Z91.018 Allergy to other foods; Z91.011 Allergy to milk products; Z91.012 Allergy to eggs
CPT/HCPCS: 80306; 82075; 99284

== ENCOUNTER 2024-01-26 02:43 | Emergency (ER) | payer OTHER ==
[2024-01-26] MEDS: levETIRAcetam 500 MG TAB PO STA (03:01)
--- NOTE | 2024-01-26 03:01 | ED ---
General Adult HPI - General Chief complaint: Chest Pain Stated complaint: Chest pain Time Seen by Provider: 01/26/24 02:46 Source: patient, EMS, RN notes reviewed, old records reviewed Mode of arrival: EMS Limitations: no limitations - History of Present Illness Initial comments: 28-year-old female presents with chief complaint of feeling like she might have a seizure. Patient states she had a seizure yesterday and was seen at outside hospital. She states she did not take her seizure medication for the past 1 week but was started again on it yesterday. She states she did not have a seizure prior to this ER evaluation. She does admit to illicit drug use and states she had a recent stay at a rehabilitation center. Patient is awake and alert at the time my evaluation - Related Data Home Medications Medication Instructions Recorded Confirmed No Known Home Medications 01/24/24 01/24/24 Allergies Allergy/AdvReac Type Severity Reaction Status Date / Time banana Allergy Rash/Hives Verified 01/26/24 02:56 carrot Allergy Anaphylaxis Verified 01/26/24 02:56 egg Allergy Rash/Hives Verified 01/26/24 02:56 milk Allergy Rash/Hives Verified 01/26/24 02:56 parsley Allergy Anaphylaxis Verified 01/26/24 02:56 walnut Allergy Rash/Hives Verified 01/26/24 02:56 Review of Systems ROS Statement: Those systems with pertinent positive or pertinent negative responses have been documented in the HPI. ROS Other: All systems not noted in ROS Statement are negative. Past Medical History Past Medical History: Asthma, Pneumonia, Seizure Disorder Additional Past Medical History / Comment(s): pt states she had a seizure x 1 year ago. History of Any Multi-Drug Resistant Organisms: None Reported Past Surgical History: No Surgical Hx Reported Past Anesthesia/Blood Transfusion Reactions: No Reported Reaction Past Psychological History: Anxiety, Depression Smoking Status: Current every day smoker, Vaper Past Alcohol Use History: Occasional Past Drug Use History: Cocaine, Heroin, Methamphetamine, Opiates - Past Family History Mother Family Medical History: No Reported History Additional Family Medical History / Comment(s): Migranes Father Family Medical History: Diabetes Mellitus, Hypertension Additional Family Medical History / Comment(s): Neuropathy General Exam Limitations: no limitations General appearance: alert, in no apparent distress Head exam: Present: atraumatic, normocephalic Eye exam: Present: normal appearance, PERRL ENT exam: Present: normal exam Neck exam: Present: normal inspection. Absent: tenderness, meningismus Respiratory exam: Present: normal lung sounds bilaterally. Absent: respiratory distress, wheezes Cardiovascular Exam: Present: regular rate, normal rhythm GI/Abdominal exam: Present: soft. Absent: distended, tenderness, guarding Extremities exam: Present: normal inspection Neurological exam: Present: alert, oriented X3, CN II-XII intact. Absent: motor sensory deficit Psychiatric exam: Present: normal affect, normal mood Skin exam: Present: warm, dry, intact Course Vital Signs 01/26/24 02:45 Temperature 97.7 F Pulse Rate 60 Respiratory 16 Rate Blood Pressure 121/71 O2 Sat by Pulse 98 Oximetry Medical Decision Making - Medical Decision Making Was pt. sent in by a medical professional or institution (SALLY Jackson, BIOMASS POWER PLANT SUPERINTENDENT, urgent care, hospital, or intermediate...) When possible be specific @ -No Did you speak to anyone other than the patient for history (EMS, parent, family, police, friend...)? What history was obtained from this source @ -No Did you review nursing and triage notes (agree or disagree)? Why? @ -I reviewed and agree with nursing and triage notes Were old charts reviewed (outside hosp., previous admission, EMS record, old EKG, old radiological studies, urgent care reports/EKG's, intermediate records)? Report findings @ -No old charts were reviewed Differential Seizure: Recurrent seizure disorder, febrile seizure, alcohol withdrawal, stimulants, meningitis, encephalitis, intercranial hemorrhage, intracranial tumor, stroke, eclampsia, thyrotoxicosis, hypocalcemia, hyponatremia, hypernatremia, hypomagnesemia, psychogenic, this is not meant to be an all-inclusive list. EKG interpreted by me (3pts min.). @Sinus rhythm rate of 61, [place] interval 144, QRS duration 107, QTc [address] segment elevation. X-rays interpreted by me (1pt min.). @ -None done CT interpreted by me (1pt min.). @ -None done U/S interpreted by me (1pt. min.). @ -None done What testing was considered but not performed or refused? (CT, X-rays, U/S, labs)? Why? @ -None What meds were considered but not given or refused? Why? @ -None Did you discuss the management of the patient with other professionals (professionals i.e. , PA, BIOMASS POWER PLANT SUPERINTENDENT, lab, RT, psych nurse, psych social worker, care coordinator, teacher, bank compliance officer, child welfare caseworker)? Give summary @ -No Was smoking cessation discussed for >3mins.? @ -No Was critical care preformed (if so, how long)? @ -No Were there social determinants of health that impacted care today? How? (Homelessness, low income, unemployed, alcoholism, drug addiction, transportation, low edu. Level, literacy, decrease access to med. care, retirement, rehab)? @ -No Was there de-escalation of care discussed even if they declined (Discuss DNR or withdrawal of care, Hospice)? DNR status @ -No What co-morbidities impacted this encounter? (DM, HTN, Smoking, COPD, CAD, Cancer, CVA, ARF, Chemo, Hep., AIDS, mental health diagnosis, sleep apnea, morbid obesity)? @ -Seizure disorder, polysubstance abuse. Was patient admitted / discharged? Hospital course, mention meds given and r oute, prescriptions, significant lab abnormalities, going to OR and other pertinent info. @ 4-year-old female stating that she feels that she might have a seizure. Patient is awake and alert with stable vitals. She is in sinus rhythm.6 she will be due for her next dose of Keppra in several hours. She is given this dose in the emergency department. She is observed without seizure activity. [place] is stable for discharge with family. Instructed to follow-up with her primary care provider. Undiagnosed new problem with uncertain prognosis? @ -No Drug Therapy requiring intensive monitoring for toxicity (Heparin, Nitro, Insulin, Cardizem)? @ -No Were any procedures done? @ -No Diagnosis/symptom? @ -[Seizure aura Acute, or Chronic, or Acute on Chronic? @ -Acute on chronic Uncomplicated (without systemic symptoms) or Complicated (systemic symptoms)? @ -Default Side effects of treatment? @ -No Exacerbation, Progression, or Severe Exacerbation? @ -No Poses a threat to life or bodily function? How? (Chest pain, [place], [place], pneumonia, PE, COPD, DKA, ARF, appy, cholecystitis, CVA, Diverticulitis, Homicidal, Suicidal, threat to staff... and all critical care pts) @ -Low risk at this time Disposition Clinical Impression: Polysubstance abuse, Seizure disorder Disposition: HOME SELF-CARE Condition: Fair Instructions (If sedation given, give patient instructions): Recurrent Seizures in Adults (ED) Additional Instructions: Please do not use illegal drugs. Please take your medication as prescribed. Is patient prescribed a controlled substance at d/c from ED?: No Referrals: Breonna Augustin MD [Primary Care Provider] - 1-2 days Time of Disposition: 03:30
[2024-01-26 03:57] VITALS: BP 121/83; PULSE 50; RESP 14; TEMP 98
== END 2024-01-26 04:06 | disposition home or self-care (01) ==
LOC: EC 02:43
DX: F19.10 Other psychoactive substance abuse, uncomplicated (principal); G40.909 Epilepsy, unspecified, not intractable, without status epilepticus; F17.290 Nicotine dependence, other tobacco product, uncomplicated; Z91.011 Allergy to milk products; Z91.018 Allergy to other foods; Z91.012 Allergy to eggs
CPT/HCPCS: 93005; 99285

== ENCOUNTER 2024-01-30 20:46 | Inpatient (IN) | payer MEDICAID, OTHER ==
--- NOTE | 2024-01-30 21:13 | ED ---
General Adult HPI - General Chief complaint: Psychiatric Symptoms Stated complaint: SI Time Seen by Provider: 01/30/24 20:47 Source: patient, EMS, RN notes reviewed, old records reviewed Mode of arrival: EMS Limitations: no limitations - History of Present Illness Initial comments: 28-year-old female presenting with substance abuse and suicidal ideation. Patient reports doing multiple illicit drugs today. Patient denies alcohol ingestion. She states she is suicidal and does not have a specific plan. - Related Data Home Medications Medication Instructions Recorded Confirmed No Known Home Medications 01/24/24 01/24/24 Allergies Allergy/AdvReac Type Severity Reaction Status Date / Time banana Allergy Rash/Hives Verified 01/30/24 21:03 carrot Allergy Anaphylaxis Verified 01/30/24 21:03 egg Allergy Rash/Hives Verified 01/30/24 21:03 milk Allergy Rash/Hives Verified 01/30/24 21:03 parsley Allergy Anaphylaxis Verified 01/30/24 21:03 quetiapine [From Seroquel] Allergy Anaphylaxis Verified 01/30/24 21:03 walnut Allergy Rash/Hives Verified 01/30/24 21:03 aripiprazole [From Abilify] AdvReac Unknown Verified 01/30/24 21:03 lamotrigine [From Lamictal] AdvReac Unknown Verified 01/30/24 21:03 Review of Systems ROS Statement: Those systems with pertinent positive or pertinent negative responses have been documented in the HPI. ROS Other: All systems not noted in ROS Statement are negative. Past Medical History Past Medical History: Asthma, Pneumonia, Seizure Disorder Additional Past Medical History / Comment(s): pt states she had a seizure x 1 year ago. History of Any Multi-Drug Resistant Organisms: None Reported Past Surgical History: No Surgical Hx Reported Past Anesthesia/Blood Transfusion Reactions: No Reported Reaction Past Psychological History: Anxiety, Depression Smoking Status: Current every day smoker, Vaper Past Alcohol Use History: Occasional Past Drug Use History: Cocaine, Heroin, Marijuana, Methamphetamine, Opiates - Past Family History Mother Family Medical History: No Reported History Additional Family Medical History / Comment(s): Migranes Father Family Medical History: Diabetes Mellitus, Hypertension Additional Family Medical History / Comment(s): Neuropathy General Exam Limitations: no limitations General appearance: alert, in no apparent distress Head exam: Present: atraumatic, normocephalic Eye exam: Present: normal appearance, PERRL ENT exam: Present: normal exam Neck exam: Present: normal inspection. Absent: tenderness, meningismus Respiratory exam: Present: normal lung sounds bilaterally. Absent: respiratory distress, wheezes Cardiovascular Exam: Present: regular rate, normal rhythm GI/Abdominal exam: Present: soft. Absent: distended, tenderness Psychiatric exam: Present: suicidal ideation Skin exam: Present: warm, dry, intact Course Vital Signs 01/30/24 20:56 Temperature 98.1 F Pulse Rate 71 Respiratory 18 Rate Blood Pressure 109/67 O2 Sat by Pulse 98 Oximetry Medical Decision Making - Medical Decision Making Was pt. sent in by a medical professional or institution (, SALLY, COPPER ETCHER, urgent care, hospital, or detention...) When possible be specific @ -No Did you speak to anyone other than the patient for history (EMS, parent, family, police, friend...)? What history was obtained from this source @ -No Did you review nursing and triage notes (agree or disagree)? Why? @ -I reviewed and agree with nursing and triage notes Were old charts reviewed (outside hosp., previous admission, EMS record, old EKG, old radiological studies, urgent care reports/EKG's, detention records)? Report findings @ -No old charts were reviewed Differential Mental Health Depression, anxiety, bipolar, psychosis, schizophrenia, borderline personality, situational depression, adjustment disorder, behavioral disorder, brain tumor, malingering, substance abuse, encephalopathy, medication reaction, dementia, hypothyroidism, degenerative neurologic disorder, lupus.... This is not meant to be all-inclusive list EKG interpreted by me (3pts min.). @ -As above X-rays interpreted by me (1pt min.). @ -None done CT interpreted by me (1pt min.). @ -None done U/S interpreted by me (1pt. min.). @ -None done What testing was considered but not performed or refused? (CT, X-rays, U/S, labs)? Why? @ -None What meds were considered but not given or refused? Why? @ -None Did you discuss the management of the patient with other professionals (professionals i.e. SALLY Jackson, COPPER ETCHER, lab, RT, psych nurse, social media intern, strategy specialist, teacher, highway patrol officer, case supervisor)? Give summary @ -No Was smoking cessation discussed for >3mins.? @ -No Was critical care preformed (if so, how long)? @ -No Were there social determinants of health that impacted care today? How? (Homelessness, low income, unemployed, alcoholism, drug addiction, transportation, low edu. Level, literacy, decrease access to med. care, alf, rehab)? @ -No Was there de-escalation of care discussed even if they declined (Discuss DNR or withdrawal of care, Hospice)? DNR status @ -No What co-morbidities impacted this encounter? (DM, HTN, Smoking, COPD, CAD, Cancer, CVA, ARF, Chemo, Hep., AIDS, mental health diagnosis, sleep apnea, morbid obesity)? @ -None Was patient admitted / discharged? Hospital course, mention meds given and route, prescriptions, significant lab abnormalities, going to OR and other pertinent info. @ -Patient cleared for EPS evaluation. Evaluated and will be admitted for psychiatric evaluation and treatment. Undiagnosed new problem with uncertain prognosis? @ -No Drug Therapy requiring intensive monitoring for toxicity (Heparin, Nitro, Insulin, Cardizem)? @ -No Were any procedures done? @ -No Diagnosis/symptom? @ -Suicidal ideation Acute, or Chronic, or Acute on Chronic? @Acute Uncomplicated (without systemic symptoms) or Complicated (systemic symptoms)? @ -Default Side effects of treatment? @ -No Exacerbation, Progression, or Severe Exacerbation? @ -No Poses a threat to life or bodily function? How? (Chest pain, [place], [place], pneumonia, PE, COPD, DKA, ARF, appy, cholecystitis, CVA, Diverticulitis, Homicidal, Suicidal, threat to staff... and all critical care pts) @Yes, self-harm - Lab Data Lab Results 01/30/24 Range/Units 21:01 Urine Opiates Screen Not Detected (NotDetected) Ur Oxycodone Screen Not Detected (NotDetected) Urine Methadone Screen Not Detected (NotDetected) Ur Barbiturates Screen Not Detected (NotDetected) U Tricyclic Antidepress Not Detected (NotDetected) Ur Phencyclidine Scrn Not Detected (NotDetected) Ur Amphetamines Screen Detected H (NotDetected) U Methamphetamines Scrn Detected H (NotDetected) U Benzodiazepines Scrn Not Detected (NotDetected) Urine Cocaine Screen Not Detected (NotDetected) U Marijuana (THC) Screen Detected H (NotDetected) Disposition Clinical Impression: Suicidal ideation, Polysubstance abuse Disposition: ADMITTED IP TO THIS [facility] Condition: Stable Is patient prescribed a controlled substance at d/c from ED?: No Referrals: Breonna Augustin MD [Primary Care Provider] - 1-2 days Time of Disposition: 21:52
[2024-01-30 21:40] LABS: Amphetamine Screen,Urine Detected (NotDetected); Barbiturate Screen,Urine Not Detected (NotDetected); Benzodiazepines Screen,Urine Not Detected (NotDetected); Cocaine Screen,Urine Not Detected (NotDetected); Methadone Screen, Urine Not Detected (NotDetected); Opiate Screen,Urine Not Detected (NotDetected); Oxycodone Screen, Urine Not Detected (NotDetected); Phencyclidine Screen,Urine Not Detected (NotDetected); Tricyclic Antidepressant,Urine Not Detected (NotDetected); Urn Cannabinoid Scrn Detected (NotDetected)
[2024-01-30] MEDS ORDERED: IBUPROFEN 600 MG TAB PO PRN (22:47)
[2024-01-30] MEDS ORDERED: HALOPERIDOL LACTATE 5 MG/ML 1 ML VIAL IM PRN (22:47)
[2024-01-30] MEDS ORDERED: haloperidoL 5 MG TAB PO PRN (22:47)
[2024-01-30] MEDS ORDERED: MAGNESIUM HYDROXIDE 2,400 MG/30 ML CUP PO PRN (22:47)
[2024-01-30] MEDS ORDERED: ACETAMINOPHEN TAB 325 MG TAB PO PRN (22:47)
[2024-01-30] MEDS ORDERED: LORazepam 2 MG/ML INJ IM PRN (22:47)
[2024-01-30] MEDS ORDERED: MAG HYDROX/AL HYDROX/SIMETH 355 ML BOTTLE PO PRN (22:47)
[2024-01-30] MEDS ORDERED: LORazepam 1 MG TAB PO PRN (22:47)
[2024-01-31 00:54] LABS: Appearance,Urine Clear (Clear); Bilirubin,Urine Negative (Negative); Blood,Urine Negative (Negative); Color,Urine Yellow; Glucose,Urine (UA) Negative (Negative); Ketones,Urine Negative (Negative); Leukocyte Esterase,Urine Negative (Negative); Nitrite,Urine Negative (Negative); Protein,Urine Negative (Negative); Specific Gravity,Urine 1.035 (1.001-1.035); Urobilinogen,Urine <2.0 mg/dL (<2.0)
[2024-01-31 07:14] VITALS: RESP 16
[2024-01-31 08:12] LABS: Basophils # (A) 0.1 k/uL (0-0.2); Basophils % (A) 1 %; Eosinophils # (A) 0.4 k/uL (0-0.7); Eosinophils % (A) 5 %; HCT 45.4 % (34.0-46.0); Lymphocytes % (A) 34 %; MCH 30.3 pg (25.0-35.0); MCHC 33.1 g/dL (31.0-37.0); MCV 91.6 fL (80.0-100.0); Mean Platelet Volume 7.5; Monocytes # (A) 0.6 k/uL (0-1.0); Monocytes % (A) 6 %; Neutrophils # (A) 4.7 k/uL (1.3-7.7); Neutrophils % (A) 53 %; Platelet Count 310 k/uL (150-450); RBC 4.96 m/uL (3.80-5.40); RDW 12.6 % (11.5-15.5); WBC 8.9 k/uL (3.8-10.6)
[2024-01-31 08:34] LABS: ALT 15 U/L (4-34); AST 17 U/L (14-36); African American GFR (CKD) >90 (>60 ml/min/1.73 sqM); Alkaline Phosphatase 65 U/L (38-126); Anion Gap 7 mmol/L; Blood Urea Nitrogen 18 mg/dL (7-17); Calcium 9.2 mg/dL (8.4-10.2); Carbon Dioxide 25 mmol/L (22-30); Chloride 107 mmol/L (98-107); Glucose 91 mg/dL (74-99); Non-African American GFR(CKD) >90 (>60 ml/min/1.73 sqM); Potassium 4.8 mmol/L (3.5-5.1); Sodium 139 mmol/L (137-145); Total Bilirubin 0.4 mg/dL (0.2-1.3); Total Protein 6.4 g/dL (6.3-8.2)
[2024-01-31] MEDS: NICOTINE 14MG/24HR PATCH TRANSDERM SCH (10:44)
--- NOTE | 2024-01-31 12:57 | P.HP ---
Psychiatric H&P - . H&P Date: 01/31/24 History & Physical: Allergies Allergy/AdvReac Type Severity Reaction Status Date / Time banana Allergy Rash/Hives Verified 01/30/24 21:03 carrot Allergy Anaphylaxis Verified 01/30/24 21:03 egg Allergy Rash/Hives Verified 01/30/24 21:03 milk Allergy Rash/Hives Verified 01/30/24 21:03 parsley Allergy Anaphylaxis Verified 01/30/24 21:03 quetiapine from Seroquel Allergy Anaphylaxis Verified 01/30/24 21:03 walnut Allergy Rash/Hives Verified 01/30/24 21:03 aripiprazole from Abilify AdvReac Unknown Verified 01/30/24 21:03 lamotrigine from Lamictal AdvReac Unknown Verified 01/30/24 21:03 Vital Signs Temp 97.6 F 01/31/24 07:13 Pulse 65 01/31/24 07:13 Resp 16 01/31/24 07:13 BP 100/65 01/31/24 07:13 Pulse Ox 100 01/30/24 23:51 FiO2 Intake & Output 01/30/24 01/31/24 01/31/24 18:59 06:59 18:59 Weight 76.317 kg Laboratory Last Values WBC 8.9 k/uL (3.8-10.6) 01/31/24 07:29 RBC 4.96 m/uL (3.80-5.40) 01/31/24 07:29 Hgb 15.0 gm/dL (11.4-16.0) 01/31/24 07:29 Hct 45.4 % (34.0-46.0) 01/31/24 07:29 MCV 91.6 fL (80.0-100.0) 01/31/24 07:29 MCH 30.3 pg (25.0-35.0) 01/31/24 07:29 MCHC 33.1 g/dL (31.0-37.0) 01/31/24 07:29 RDW 12.6 % (11.5-15.5) 01/31/24 07:29 Plt Count 310 k/uL (150-450) 01/31/24 07:29 MPV 7.5 01/31/24 07:29 Neutrophils % 53 % 01/31/24 07:29 Lymphocytes % 34 % 01/31/24 07:29 Monocytes % 6 % 01/31/24 07: Eosinophils % 5 % 01/31/24 07: Basophils % 1 % 01/31/24 07:29 Neutrophils # 4.7 k/uL (1.3-7.7) 01/31/24 07:29 Lymphocytes # 3.0 k/uL (1.0-4.8) 01/31/24 07: Monocytes # 0.6 k/uL (0-1.0) 01/31/24 07:29 Eosinophils # 0.4 k/uL (0-0.7) 01/31/24 07: Basophils # 0.1 k/uL (0-0.2) 01/31/24 07:29 Sodium 139 mmol/L (137-145) 01/31/24 07:29 Potassium 4.8 mmol/L (3.5-5.1) 01/31/24 07: Chloride 107 mmol/L (98-107) 01/31/24 07:29 Carbon Dioxide 25 mmol/L (22-30) 01/31/24 07:29 Anion Gap 7 mmol/L 01/31/24 07:29 BUN 18 mg/dL (7-17) H 01/31/24 07:29 Creatinine 0.82 mg/dL (0.52-1.04) 01/31/24 07:29 Est GFR (CKD-EPI)AfAm >90 (>60 ml/min/1.73 sqM) 01/31/24 07:29 Est GFR (CKD-EPI)NonAf >90 (>60 ml/min/1.73 sqM) 01/31/24 07:29 Glucose 91 mg/dL (74-99) 01/31/24 07:[address] Glu mg/dL 100 mg/dL 01/31/24 07:29 Hemoglobin A1c 5.1 % (<=6.0) 01/31/24 07:29 Calcium 9.2 mg/dL (8.4-10.2) 01/31/24 07:29 Total Bilirubin 0.4 mg/dL (0.2-1.3) 01/31/24 07:29 AST 17 U/L (14-36) 01/31/24 07:29 ALT 15 U/L (4-34) 01/31/24 07:29 Alkaline Phosphatase 65 U/L (38-126) 01/31/24 07: Total Protein 6.4 g/dL (6.3-8.2) 01/31/24 07: Albumin 4.0 g/dL (3.5-5.0) 01/31/24 07: TSH 1.430 mIU/L (0.465-4.680) 01/31/24 07: Urine Color Yellow 01/31/24 00:00 Urine Appearance Clear (Clear) 01/31/24 00:00 Urine pH 6.0 (5.0-8.0) 01/31/24 00:00 Ur Specific [place] 1.035 (1.001-1.035) 01/31/24 00:00 Urine Protein Negative (Negative) 01/31/24 00:00 Urine Glucose (UA) Negative (Negative) 01/31/24 00:00 Urine Ketones Negative (Negative) 01/31/24 00:00 Urine Blood Negative (Negative) 01/31/24 00:00 Urine Nitrite Negative (Negative) 01/31/24 00:00 Urine Bilirubin Negative (Negative) 01/31/24 00:00 Urine Urobilinogen <2.0 mg/dL (<2.0) 01/31/24 00:00 Ur Leukocyte Esterase Negative (Negative) 01/31/24 00:00 Urine HCG, Qual Not Detected (Not Detectd) 01/31/24 00:00 Urine Opiates Screen Not Detected (NotDetected) 01/30/24 21:01 Ur Oxycodone Screen Not Detected (NotDetected) 01/30/24 21:01 Urine Methadone Screen Not Detected (NotDetected) 01/30/24 21:01 Ur Barbiturates Screen Not Detected (NotDetected) 01/30/24 21:01 U Tricyclic Antidepress Not Detected (NotDetected) 01/30/24 21:01 Ur Phencyclidine Scrn Not Detected (NotDetected) 01/30/24 21:01 Ur Amphetamines Screen Detected (NotDetected) H 01/30/24 21:01 U Methamphetamines Scrn Detected (NotDetected) H 01/30/24 21:01 U Benzodiazepines Scrn Not Detected (NotDetected) 01/30/24 21:01 Urine Cocaine Screen Not Detected (NotDetected) 01/30/24 21:01 U Marijuana (THC) Screen Detected (NotDetected) H 01/30/24 21:01 SARS-CoV-2 (PCR) Not Detected (Not Detectd) 01/30/24 21:57 01/31/24 12:46 IDENTIFYING DATA: Patient is a 28-year-old single female, unemployed with 1 son CHIEF COMPLAINT: Suicidal ideations, polysubstance use HPI: Patient presented to the hospital with suicidal thoughts. EPS evaluation revealed, "Patient presented to ER by EMS for suicidal ideation and drug use. Patient assessed in ER15 from [id number]. Patient observed to be calmly sitting in stretcher in hospital gown. Patient observed to be smiling inappropriately with no eye contact. Patient observed to be speaking nonchalant about her suicidal ideations and laughing during assessment. Patient states she called EMS because she was feeling depressed and suicidal and was using drugs. Patient states that she has been using crack, meth, fentanyl, and marijuana last use today. Patient states she was recently in rehab one week ago at [facility] for substance use and her depression is related to relapsing soon after discharging. Patient states that she is still currently suicidal without a plan but then states she believes if she was discharged she would go home and cut her wrists. Patient verbalizes previous suicide attempt in 2022 by cutting her wrists resulting in hosptialization. Patient denies homicidal ideations. Patient denies auditory or visual hallucinations. Patient verbalizes paranoid ideation only when using crack. Patient denies complaints with appetite or sleep, and denies issues maintaining hygiene. Patient verbalizes that she wants to go back to rehab for substance use. Patient denies alcohol use. States she uses crack, marijuana, and fentanyl daily, and uses meth 1x/week. Patient states she used all these susbtances today. Patient UDS+Meth, Amph, and THC. " Patient seen and evaluated on the unit and was agreeable to speak to conventional mortgage underwriter in office. She reports for the past year she has been struggling with crack cocaine and fentanyl that led to 2 overdoses. She states at that time she was involved with a partner who use substances and that is how she began using as well. She states she recently completed rehab however relapsed on the substances and that this was what prompted the suicidal thoughts. She has a history of seizures and has been on Keppra for the past month for this, denying any worsening in depression with this medication. She states recently being discharged from this facility on Lamictal and Seroquel however she is not able to tolerate these medications. She reports increase difficulties with sleeping, low energy and hopelessness but denied any anhedonia, concentration or appetite difficulties. She reports being a worrier, worrying about many different things along with racing thoughts and restlessness. She does describe a history of manic episodes that began with the of her son who is now 7. Patient denies any suicidal or homicidal ideations intent or plan. At this time patient denies any auditory or visual hallucinations. Patient denies any flight of ideas racing thoughts and increased in goal directed behavior. Patient admits to using crack cocaine, fentanyl, marijuana, methamphetamine and smoking a half a pack a day of cigarettes. PAST PSYCHIATRIC HISTORY: Patient has a history of bipolar 2 disorder, methamphetamine use disorder, opioid abuse, cannabis use disorder. Patient denies being on any psychiatric medications. She has tried Prozac, BuSpar, Zoloft, Lamictal, Seroquel, Celexa in the past. She has had 2 inpatient hospitalizations, most recent 07/2023. Patient denies any psychiatric outpatient follow-up. Patient reports 2 prior suicide attempts. PMH: as per ER note ALLERGIES: as per EMR SUBSTANCE USE HISTORY: As per HPI FAMILY PSYCHIATRIC/SUBSTANCE USE HISTORY: Patient reports her sister has bipolar disorder and her dad suffered from depression SOCIAL HISTORY: Patient has 1 son and is currently unemployed, completing some college for schooling. She reports a recent 50-day stent in nursing home related to attempted murder and obstruction of justice. MENTAL STATUS EXAM: General Appearance: Patient appears to be stated age is alert, directable, and attempts to cooperate. Patient appears to have fair hygiene and grooming. Behavior: Patient is seated without any agitated behavior. Speech: Patient's speech is fluent and nonpressured. Mood/Affect: Patient reports their mood is depressed, affect is congruent and constricted. Suicidality/Homicidality: Patient denies having any homicidal ideation intent or plan. Denies any suicidal ideations intent or plan Perceptions: Patient denies any visual hallucinations and denies any auditory hallucinations Though content/process: There is no evidence of any delusional thought content and thought process is linear and goal-directed. Memory and concentration: AOX3, grossly intact for the purposes of this session. Can spell "WORLD" backwards Judgment and insight: Poor STRENGTHS/WEAKNESSES: strength is that patient is resilient and talks about having her son to live for. Weakness is that patient has poor judgment, uses numerous substances and is impulsive INTELLECT: Average IMPRESSIONS: Depression, unspecified, likely substance-induced History of bipolar 2 disorder Polysubstance use disorder (methamphetamine, opioids and crack cocaine) Generalized anxiety disorder Cannabis use disorder Nicotine dependence PLAN: -Patient is admitted under voluntary status to MHU for stabilization of psychiatric symptoms and safety. Patient has signed adult voluntary form and medication consent and is placed in patient's chart. -Medications : Start Latuda 20 mg twice daily for bipolar depression, BuSpar 5 mg twice daily for anxiety -Ativan and Haldol PRN for agitation/aggression -Patient was counselled on substance abuse and desired to cut back on use-Will offer patient subtance use rehab, patient agreeable with returning to rehab upon discharge -Patient was informed of the risks, benefits and side effects of the medication and patient verbally consented to taking the medications. Patient signed med consent form and was placed in chart. -Internal Medicine consult to perform medical evaluation and physical. -NRT -nicotine patch -SW on board for discharge planning. Encourage patient to participate in groups to work on coping skills. Anticipate discharge later this week to rehab pending stabilization in mood 01/31/24 12:51
[2024-01-31 15:08] LABS: Chol/HDL Ratio 2.87 Ratio; LDL Cholesterol,Calculated 70.3 mg/dL (0.0-131.0)
[2024-01-31] MEDS: LURASIDONE 20 MG TAB PO SCH (16:35)
--- NOTE | 2024-01-31 17:31 | P.CONS ---
History of Present Illness - Reason for Consult Consult date: 01/31/24 - History of Present Illness Morenita Coronado, is a 28-year-old female who presented to [facility] emergency room with a chief complaint of worsening depression with suicidal ideation. She was evaluated in the emergency room, she stated that she has multiple illicit drug use, she was having some suicidal ideation but no plan, she was admitted to the psychiatry unit for further evaluation and treatment. Medical consultation was requested for management while hospitalized, her primary care physician is Dr. Augustin. Patient stated that she has a history of depression, however she has not been recently on any medications, she denies any history of any medical problems, there is no history of asthma or COPD no history of coronary artery disease congestive heart failure or valvular heart disease, she denies any history or any GI or symptoms. Patient denies taking any prescription medications at home. Past Medical History Past Medical History: Asthma, Pneumonia, Seizure Disorder Additional Past Medical History / Comment(s): pt states she had a seizure x7 days ago (01/23/2024) History of Any Multi-Drug Resistant Organisms: None Reported Past Surgical History: No Surgical Hx Reported Past Anesthesia/Blood Transfusion Reactions: No Reported Reaction Past Psychological History: Anxiety, Depression Smoking Status: Current every day smoker, Vaper Past Alcohol Use History: Occasional Past Drug Use History: Cocaine, Heroin, Marijuana, Methamphetamine, Opiates - Past Family History Mother Family Medical History: No Reported History Additional Family Medical History / Comment(s): Migranes Father Family Medical History: Diabetes Mellitus, Hypertension Additional Family Medical History / Comment(s): Neuropathy Medications and Allergies Home Medications Medication Instructions Recorded Confirmed Type No Known Home Medications 01/24/24 01/31/24 History Allergies Allergy/AdvReac Type Severity Reaction Status Date / Time banana Allergy Rash/Hives Verified 01/30/24 21:03 carrot Allergy Anaphylaxis Verified 01/30/24 21:03 egg Allergy Rash/Hives Verified 01/30/24 21:03 milk Allergy Rash/Hives Verified 01/30/24 21:03 parsley Allergy Anaphylaxis Verified 01/30/24 21:03 quetiapine [From Seroquel] Allergy Anaphylaxis Verified 01/30/24 21:03 walnut Allergy Rash/Hives Verified 01/30/24 21:03 aripiprazole [From Abilify] AdvReac Unknown Verified 01/30/24 21:03 lamotrigine [From Lamictal] AdvReac Unknown Verified 01/30/24 21:03 Physical Exam Vitals: Vital Signs Temp Pulse Pulse Resp BP BP Pulse Ox 01/31/24 07:13 97.6 F 65 16 100/65 01/30/24 23:51 97.3 F L 89 14 115/65 100 01/30/24 23:13 98.1 F 78 18 110/69 98 01/30/24 20:56 98.1 F 71 18 109/67 98 Intake and Output 01/31/24 01/31/24 01/31/24 06:59 14:59 22:59 Other: Weight 76.317 kg In general patient is alert and oriented x 3 in no distress HEENT head normocephalic and atraumatic Neck is supple no JVD no goiter no lymphadenopathy no carotid bruit Chest examination is clear to auscultation no crackles no wheezing Cardiac exam reveals regular heart sounds S1 and S2 no gallops no murmurs Abdomen is soft nontender no organomegaly with normal bowel sounds Extremity exam reveals no edema no cyanosis or clubbing Neurological examination reveals no gross focal deficits Results CBC & Chem 7: 01/31/24 07:29 01/31/24 07:29 Labs: Abnormal Lab Results - Last 24 Hours (Table) 01/30/24 01/31/24 Range/Units 21:01 07:29 BUN 18 H (7-17) mg/dL Ur Amphetamines Screen Detected H (NotDetected) U Methamphetamines Scrn Detected H (NotDetected) U Marijuana (THC) Screen Detected H (NotDetected) Assessment and Plan Plan: Depression, with suicidal ideation, management per primary psychiatry team Generalized anxiety disorder Polysubstance abuse, including methamphetamine, opioid, cannabis and crack cocaine, patient was counseled in length in that regard Tobacco abuse counseled in length regarding smoking cessation No other medical issues identified at this time, vitals and laboratory data reviewed within normal limits. Will follow as needed for any medical management needs during this hospitalization.
[2024-01-31] MEDS: busPIRone HCl 5 MG TAB PO SCH (20:31)
[2024-02-01] MEDS: LURASIDONE 20 MG TAB PO SCH (08:37)
[2024-02-01 11:54] VITALS: BP 116/62; PULSE 62; TEMP 98
--- NOTE | 2024-02-01 13:30 | P.DS ---
Providers Date of admission: 01/30/24 22:45 Expected date of discharge: 02/01/24 Attending physician: Brit Hanson MD Consults: 01/30/24 22:47 Consult Physician Routine Consulting Provider: Rodney Ellis Consult Reason/Comments: History and Physical, New Admission Do you want consulting provider notified?: Yes Primary care physician: Breonna Augustin - Discharge Diagnosis(es) (1) Depression Current Visit: Yes Status: Acute Priority: High (2) Polysubstance use disorder Current Visit: Yes Status: Acute Priority: High (3) Generalized anxiety disorder Current Visit: Yes Status: Chronic Priority: Low (4) Cannabis use disorder Current Visit: Yes Status: Chronic Priority: Low (5) Nicotine dependence Current Visit: Yes Status: Chronic Priority: Low Hospital Course: Admission HPI: Admission note was completed by public relations writer "Patient presented to the hospital with suicidal thoughts. EPS evaluation revealed, "Patient presented to ER by EMS for suicidal ideation and drug use. Patient assessed in ER15 from [id number]. Patient observed to be calmly sitting in stretcher in hospital gown. Patient observed to be smiling inappropriately with no eye contact. Patient observed to be speaking nonchalant about her suicidal ideations and laughing during assessment. Patient states she called EMS because she was feeling depressed and suicidal and was using drugs. Patient states that she has been using crack, meth, fentanyl, and marijuana last use today. Patient states she was recently in rehab one week ago at [facility] in [place] for substance use and her depression is related to relapsing soon after discharging. Patient states that she is still currently suicidal without a plan but then states she believes if she was discharged she would go home and cut her wrists. Patient verbalizes previous suicide attempt in 2022 by cutting her wrists resulting in hosptialization. Patient denies homicidal ideations. Patient denies auditory or visual hallucinations. Patient verbalizes paranoid ideation only when using crack. Patient denies complaints with appetite or sleep, and denies issues maintaining hygiene. Patient verbalizes that she wants to go back to rehab for substance use. Patient denies alcohol use. States she uses crack, marijuana, and fentanyl daily, and uses meth 1x/week. Patient states she used all these susbtances today. Patient UDS+Meth, Amph, and THC. " Patient seen and evaluated on the unit and was agreeable to speak to public relations writer in office. She reports for the past year she has been struggling with crack cocaine and fentanyl that led to 2 overdoses. She states at that time she was involved with a partner who use substances and that is how she began using as well. She states she recently completed rehab however relapsed on the substances and that this was what prompted the suicidal thoughts. She has a history of seizures and has been on Keppra for the past month for this, denying any worsening in depression with this medication. She states recently being discharged from this facility on Lamictal and Seroquel however she is not able to tolerate these medications. She reports increase difficulties with sleeping, low energy and hopelessness but denied any anhedonia, concentration or appetite difficulties. She reports being a worrier, worrying about many different things along with racing thoughts and restlessness. She does describe a history of manic episodes that began with the of her son who is now 7. Patient denies any suicidal or homicidal ideations intent or plan. At this time patient denies any auditory or visual hallucinations. Patient denies any flight of ideas racing thoughts and increased in goal directed behavior. Patient admits to using crack cocaine, fentanyl, marijuana, methamphetamine and smoking a half a pack a day of cigarettes." Hospital course: Upon admission to the unit patient was directable and agreeable to commence treatment and signed adult voluntary form.. Patient got along well with other patients on the unit and followed unit protocol. Patient was compliant with the medications and denied any side effects throughout hospital course. Patient was started on Latuda 20 mg twice daily for bipolar depression and BuSpar 5 mg twice daily for anxiety. Patient spoke of her stressors and engaged in therapy both group and individual. Patient was also seen by medical team for history and physical exam. Throughout the course of the hospitalization patient gradually improved with regards to mood, anxiety, sleep and returned back to their baseline level of functioning. On the day of discharge patient denied any suicidal or homicidal ideations intent or plan denied any auditory or visual hallucinations. The patient denied any access to guns or weapons. Patient denied any paranoia and did not endorse any delusions. Patient does have a significant history of substance abuse and was counseled on abstaining from all substances including alcohol and marijuana. Patient was offered however declined inpatient substance-abuse rehab. She claims she will follow up with [facility] as she was recently discharged from them however a bed was not available. Patient is to return home with mother in the interim. Patient was also counseled on the medications and need for regular compliance and was encouraged to follow-up with their outpatient appointment for mental health and also for primary care. Mental status exam: General Appearance: Patient appears to be stated age is alert, pleasant, and cooperative. Patient is in no acute distress and has improved hygiene and grooming Behavior: Patient is calmly seated without any agitated behavior. Speech: Patient's speech is fluent and nonpressured. Mood/Affect: Patient reports their mood is "good", affect is congruent and euthymic, reactive. Suicidality/Homicidality: Patient denies having any suicidal or homicidal ideation intent or plan. Perceptions: Patient denies any auditory or visual hallucinations. Though content/process: There is no evidence of any delusional thought content and thought process is linear and goal-directed. Memory and concentration: AOX3, grossly intact for the purposes of this session. Can spell "WORLD" backwards correctly. Judgment and insight: Chronically poor, however has improved with guarded prognosis Impression: Depression, unspecified, likely substance-induced History of bipolar 2 disorder Polysubstance use disorder (methamphetamine, opioids and crack cocaine) Generalized anxiety disorder Cannabis use disorder Nicotine dependence Plan: -Continue with discharge today as patient has improved and stabilized psychiatrically and is not currently an imminent threat to themself and/or others. Patient will remain at chronically elevated risk for harm to self and/or others due to their impulsivity and substance abuse. -Continue medications: Latuda 20 mg twice daily, BuSpar 5 mg twice daily -Patient was counseled on the need for medication compliance and appropriate follow-up at mental health and also primary care for medical issues. Patient verbalized understanding and agreed. -Social work to help coordinate patients discharge today. also to ensure safe home environment that guns/weapons are either removed from the home or locked away. Social work also to arrange for patients follow up appointments with [facility] for psychiatric care along with follow up with primary care provider. -Patient counseled on abstaining from recreational drugs and marijuana and alcohol. Was informed/educated on the adverse effects on their physical and mental health. Patient verbally agreed and understood. Patient was offered substance abuse treatment however declined at this time. -Patient was instructed to return to the hospital or seek immediate medical care if their psychiatric or medical symptoms do worsen or reoccur. Allergies Allergy/AdvReac Type Severity Reaction Status Date / Time banana Allergy Rash/Hives Verified 01/30/24 21:03 carrot Allergy Anaphylaxis Verified 01/30/24 21:03 egg Allergy Rash/Hives Verified 01/30/24 21:03 milk Allergy Rash/Hives Verified 01/30/24 21:03 parsley Allergy Anaphylaxis Verified 01/30/24 21:03 quetiapine [From Seroquel] Allergy Anaphylaxis Verified 01/30/24 21:03 walnut Allergy Rash/Hives Verified 01/30/24 21:03 aripiprazole [From Abilify] AdvReac Unknown Verified 01/30/24 21:03 lamotrigine [From Lamictal] AdvReac Unknown Verified 01/30/24 21:03 Vital Signs Temp 98 F 02/01/24 11:52 Pulse 62 02/01/24 11:52 Resp 16 02/01/24 11:52 BP 116/62 02/01/24 11:52 Pulse Ox 99 02/01/24 11:52 FiO2 Abnormal Labs 01/30/24 01/31/24 21:01 07:29 BUN 18 H Ur Amphetamines Screen Detected H U Methamphetamines Scrn Detected H U Marijuana (THC) Screen Detected H Plan - Discharge Summary Discharge Rx Participant: Yes New Discharge Prescriptions: New Nicotine 14Mg/24Hr Patch [Habitrol] 1 patch TRANSDERM DAILY patch Lurasidone [Latuda] 20 mg PO 0700 30 Days #30 tab Lurasidone [Latuda] 20 mg PO 1700 30 Days #30 tab busPIRone HCl [Buspar] 5 mg PO BID 30 Days #60 tab Discharge Medication List Lurasidone [Latuda] 20 mg PO 0700 30 Days #30 tab 02/01/24 [Rx] Lurasidone [Latuda] 20 mg PO 1700 30 Days #30 tab 02/01/24 [Rx] Nicotine 14Mg/24Hr Patch [Habitrol] 1 patch TRANSDERM DAILY patch 02/01/24 [Rx] busPIRone HCl [Buspar] 5 mg PO BID 30 Days #60 tab 02/01/24 [Rx] Follow up Appointment(s)/Referral(s): [facility] [Outside] - 02/08/24 3:00 pm (with Dayana) Breonna Augustin MD [Primary Care Provider] - 1-2 days Patient Instructions/Handouts: Depression (DC), Generalized Anxiety Disorder (GEN), Polysubstance Abuse (ED) Activity/Diet/Wound Care/Special Instructions: Avoid the use of street drugs and alcohol. Take all medications as prescribed. When you are in need of refills on your medications, please contact your medical provider and/or outpatient psychiatrist/provider to have this done. Please go to your scheduled outpatient appointment for aftercare treatment. If symptoms return or become worse, call the crisis line at and/or go to the nearest emergency room for evaluation. National Suicide Hotline 752 Discharge Disposition: HOME SELF-CARE
== END 2024-02-01 13:46 | disposition home or self-care (01) | DRG 754 ==
LOC: EC 20:46 → 3MHU 22:45
PROVIDERS: ADMIT Psychiatry & Neurology Psychiatry; ATTEND Psychiatry & Neurology Psychiatry
DX: F32.A Depression, unspecified (principal); F17.210 Nicotine dependence, cigarettes, uncomplicated; F15.10 Other stimulant abuse, uncomplicated; F12.10 Cannabis abuse, uncomplicated; F14.90 Cocaine use, unspecified, uncomplicated; F41.1 Generalized anxiety disorder; F60.0 Paranoid personality disorder; J45.909 Unspecified asthma, uncomplicated; R45.851 Suicidal ideations; Z87.01 Personal history of pneumonia (recurrent); G40.909 Epilepsy, unspecified, not intractable, without status epilepticus; Z79.899 Other long term (current) drug therapy; Z82.49 Family history of ischemic heart disease and other diseases of the circulatory system; Z91.51 Personal history of suicidal behavior; Z91.52 Personal history of nonsuicidal self-harm; Z91.012 Allergy to eggs; Z91.018 Allergy to other foods
CPT/HCPCS: 80053; 80061; 80306; 81003; 81025; 82075; 83036; 84443; 85025; 87635; 99285

== ENCOUNTER 2024-03-14 21:53 | Emergency (ER) | payer OTHER ==
[2024-03-14 22:00] VITALS: BP 122/79; RESP 18; TEMP 97.4
--- NOTE | 2024-03-14 22:10 | ED ---
General Adult HPI - General Chief complaint: Seizure Stated complaint: possible syncope Time Seen by Provider: 03/14/24 21:55 Source: patient, RN notes reviewed, old records reviewed Mode of arrival: EMS Limitations: no limitations - History of Present Illness Initial comments: 28-year-old female with seizure disorder presents with chief complaint of st ating that she feels like she may have a seizure and has been out of her Keppra for the past 3 days. She takes 500 mg twice daily. She states that her doctor did call in a prescription for her today and she should be able to pick this medication up tomorrow. No other complaints at this time. - Related Data Previous Rx's Medication Instructions Recorded Lurasidone [Latuda] 20 mg PO 0700 30 Days #30 tab 02/01/24 Lurasidone [Latuda] 20 mg PO 1700 30 Days #30 tab 02/01/24 Nicotine 14Mg/24Hr Patch [Habitrol] 1 patch TRANSDERM DAILY patch 02/01/24 busPIRone HCl [Buspar] 5 mg PO BID 30 Days #60 tab 02/01/24 Allergies Allergy/AdvReac Type Severity Reaction Status Date / Time banana Allergy Rash/Hives Verified 03/14/24 22:00 carrot Allergy Anaphylaxis Verified 03/14/24 22:00 egg Allergy Rash/Hives Verified 03/14/24 22:00 milk Allergy Rash/Hives Verified 03/14/24 22:00 parsley Allergy Anaphylaxis Verified 03/14/24 22:00 quetiapine [From Seroquel] Allergy Anaphylaxis Verified 03/14/24 22:00 walnut Allergy Rash/Hives Verified 03/14/24 22:00 aripiprazole [From Abilify] AdvReac Unknown Verified 03/14/24 22:00 lamotrigine [From Lamictal] AdvReac Unknown Verified 03/14/24 22:00 Review of Systems ROS Statement: Those systems with pertinent positive or pertinent negative responses have been documented in the HPI. ROS Other: All systems not noted in ROS Statement are negative. Past Medical History Past Medical History: Asthma, Pneumonia, Seizure Disorder Additional Past Medical History / Comment(s): pt states she had a seizure x7 days ago (01/23/2024) History of Any Multi-Drug Resistant Organisms: None Reported Past Surgical History: No Surgical Hx Reported Past Anesthesia/Blood Transfusion Reactions: No Reported Reaction Past Psychological History: Anxiety, Depression Smoking Status: Current every day smoker, Vaper Past Alcohol Use History: Occasional Past Drug Use History: Cocaine, Heroin, Marijuana, Methamphetamine, Opiates - Past Family History Mother Family Medical History: No Reported History Additional Family Medical History / Comment(s): Migranes Father Family Medical History: Diabetes Mellitus, Hypertension Additional Family Medical History / Comment(s): Neuropathy General Exam Limitations: no limitations General appearance: alert, in no apparent distress Head exam: Present: atraumatic, normocephalic Eye exam: Present: normal appearance, PERRL ENT exam: Present: normal exam Neck exam: Present: normal inspection. Absent: tenderness, meningismus Respiratory exam: Present: normal lung sounds bilaterally. Absent: respiratory distress, wheezes Cardiovascular Exam: Present: regular rate, normal rhythm GI/Abdominal exam: Present: soft. Absent: distended, tenderness Neurological exam: Present: alert, oriented X3, CN II-XII intact. Absent: motor sensory deficit Psychiatric exam: Present: normal affect, normal mood Skin exam: Present: warm, dry, intact Course Vital Signs 03/14/24 21:54 Temperature 97.4 F L Pulse Rate 69 Respiratory 18 Rate Blood Pressure 122/79 O2 Sat by Pulse 98 Oximetry Medical Decision Making - Medical Decision Making Was pt. sent in by a medical professional or institution (SALLY Jackson, [employer], urgent care, hospital, or group home...) When possible be specific @ -No Did you speak to anyone other than the patient for history (EMS, parent, family, police, friend...)? What history was obtained from this source @ -No Did you review nursing and triage notes (agree or disagree)? Why? @ -I reviewed and agree with nursing and triage notes Were old charts reviewed (outside hosp., previous admission, EMS record, old EKG, old radiological studies, urgent care reports/EKG's, group home records)? Report findings @ -No old charts were reviewed Differential Seizure: Recurrent seizure disorder, febrile seizure, alcohol withdrawal, stimulants, meningitis, encephalitis, intercranial hemorrhage, intracranial tumor, stroke, eclampsia, thyrotoxicosis, hypocalcemia, hyponatremia, hypernatremia, hypomagnesemia, psychogenic, this is not meant to be an all-inclusive list. EKG interpreted by me (3pts min.). @ -As above X-rays interpreted by me (1pt min.). @ -None done CT interpreted by me (1pt min.). @ -None done U/S interpreted by me (1pt. min.). @ -None done What testing was considered but not performed or refused? (CT, X-rays, U/S, labs)? Why? @ -None What meds were considered but not given or refused? Why? @ -None Did you discuss the management of the patient with other professionals (professionals i.e. , PA, [employer], lab, RT, psych nurse, renal social worker, coke handling supervisor, teacher, adult parole officer, family independence case manager)? Give summary @ -No Was smoking cessation discussed for >3mins.? @ -No Was critical care preformed (if so, how long)? @ -No Were there social determinants of health that impacted care today? How? (Homelessness, low income, unemployed, alcoholism, drug addiction, transportation, low edu. Level, literacy, decrease access to med. care, skilled nursing, rehab)? @ -No Was there de-escalation of care discussed even if they declined (Discuss DNR or withdrawal of care, Hospice)? DNR status @ -No What co-morbidities impacted this encounter? (DM, HTN, Smoking, COPD, CAD, Cancer, CVA, ARF, Chemo, Hep., AIDS, mental health diagnosis, sleep apnea, morbid obesity)? @Seizure disorder Was patient admitted / discharged? Hospital course, mention meds given and route, prescriptions, significant lab abnormalities, going to OR and other pertinent info. @ 28-year-old female presenting for medication refill. Patient takes Keppra and has been out of this medication for the past 3 days. She states that her doctor was able to call in a prescription today and she is planning to pick this medication up tomorrow. She is given 1 dose of oral Keppra in the emergency department. She has no other complaints at the time my evaluation. Stable for discharge. Undiagnosed new problem with uncertain prognosis? @ -No Drug Therapy requiring intensive monitoring for toxicity (Heparin, Nitro, Insulin, Cardizem)? @ -No Were any procedures done? @ -No Diagnosis/symptom? @ -Medication refill Acute, or Chronic, or Acute on Chronic? @ -Acute Uncomplicated (without systemic symptoms) or Complicated (systemic symptoms)? @ -Default Side effects of treatment? @ -No Exacerbation, Progression, or Severe Exacerbation? @ -No Poses a threat to life or bodily function? How? (Chest pain, [place], [place], pneumonia, PE, COPD, DKA, ARF, appy, cholecystitis, CVA, Diverticulitis, Homicidal, Suicidal, threat to staff... and all critical care pts) @ -No Disposition Clinical Impression: Medication refill Disposition: HOME SELF-CARE Condition: Fair Instructions (If sedation given, give patient instructions): Recurrent Seizures in Adults (ED) Is patient prescribed a controlled substance at d/c from ED?: No Referrals: Breonna Augustin MD [Primary Care Provider] - 1-2 days Time of Disposition: 22:11
[2024-03-14] MEDS ORDERED: LURASIDONE 20 MG TAB PO SCH (22:15)
[2024-03-14] MEDS: levETIRAcetam 500 MG TAB PO STA (22:17)
[2024-03-14 22:51] VITALS: PULSE 64
== END 2024-03-14 22:59 | disposition home or self-care (01) ==
LOC: EC 21:53
DX: Z76.0 Encounter for issue of repeat prescription (principal); F17.290 Nicotine dependence, other tobacco product, uncomplicated; Z91.011 Allergy to milk products; Z91.012 Allergy to eggs; Z91.018 Allergy to other foods
CPT/HCPCS: 99284

== ENCOUNTER 2024-03-17 11:53 | Emergency (ER) | payer OTHER ==
[2024-03-17 12:12] VITALS: BP 107/74; PULSE 66; RESP 18; TEMP 97.4
--- NOTE | 2024-03-17 12:14 | ED ---
Chest Pain HPI - General Chief Complaint: Chest Pain Stated Complaint: Chest pain, numbness in feet Time Seen by Provider: 03/17/24 12:05 Source: patient, RN notes reviewed Mode of arrival: ambulatory Limitations: no limitations - History of Present Illness Initial Comments: Quick Note: This is a 28-year-old female who presents to the emergency [facility] for chest pain and numbness in her feet. About 20 minutes prior to arrival she developed pain in her chest and both of her feet. States that she typically gets chest pain before she has a seizure and is concerned that she could have one. She last had a seizure 2 days ago. She has also not taken her Keppra in 2 days because she has been out of it. MD Complaint: chest pain - Related Data Previous Rx's Medication Instructions Recorded Lurasidone [Latuda] 20 mg PO 0700 30 Days #30 tab 02/01/24 Lurasidone [Latuda] 20 mg PO 1700 30 Days #30 tab 02/01/24 Nicotine 14Mg/24Hr Patch [Habitrol] 1 patch TRANSDERM DAILY patch 02/01/24 busPIRone HCl [Buspar] 5 mg PO BID 30 Days #60 tab 02/01/24 Allergies Allergy/AdvReac Type Severity Reaction Status Date / Time banana Allergy Rash/Hives Verified 03/17/24 12:09 carrot Allergy Anaphylaxis Verified 03/17/24 12:09 egg Allergy Rash/Hives Verified 03/17/24 12:09 milk Allergy Rash/Hives Verified 03/17/24 12:09 parsley Allergy Anaphylaxis Verified 03/17/24 12:09 quetiapine [From Seroquel] Allergy Anaphylaxis Verified 03/17/24 12:09 walnut Allergy Rash/Hives Verified 03/17/24 12:09 aripiprazole [From Abilify] AdvReac Unknown Verified 03/17/24 12:09 lamotrigine [From Lamictal] AdvReac Unknown Verified 03/17/24 12:09 Review of Systems ROS Statement: Those systems with pertinent positive or pertinent negative responses have been documented in the HPI. ROS Other: All systems not noted in ROS Statement are negative. Past Medical History Past Medical History: Asthma, Pneumonia, Seizure Disorder Additional Past Medical History / Comment(s): pt states she had a seizure x7 days ago (01/23/2024) History of Any Multi-Drug Resistant Organisms: None Reported Past Surgical History: No Surgical Hx Reported Past Anesthesia/Blood Transfusion Reactions: No Reported Reaction Past Psychological History: Anxiety, Depression Smoking Status: Current every day smoker, Vaper Past Alcohol Use History: Occasional Past Drug Use History: Cocaine, Heroin, Marijuana, Methamphetamine, Opiates, Prescription Drug Abuse - Past Family History Mother Family Medical History: No Reported History Additional Family Medical History / Comment(s): Migranes Father Family Medical History: Diabetes Mellitus, Hypertension Additional Family Medical History / Comment(s): Neuropathy General Exam - General Exam Comments Initial Comments: Visual Physical Exam Vital signs reviewed General: Well-appearing, nontoxic, no acute distress. Head: Normocephalic, atraumatic Eyes: PERRLA, EOMI ENT: Airway patent Chest: Nonlabored breathing Skin: No visual rash, normal skin tone Neuro: Alert and oriented 3 Musculoskeletal: No gross abnormalities Limitations: no limitations Course Vital Signs 03/17/24 12:09 Temperature 97.4 F L Pulse Rate 66 Respiratory 18 Rate Blood Pressure 107/74 O2 Sat by Pulse 100 Oximetry Chest Pain MDM - MDM I performed the QuickNote portion of this chart. Signed Ally Feliciano PA-C. Patient left AMA from the waiting room prior to full evaluation as well as completion and review of ordered testing. Disposition Clinical Impression: Chest pain, Paresthesia of both lower extremities Disposition: LEFT AGAINST MEDICAL ADVICE Referrals: Breonna Augustin MD [Primary Care Provider] - 1-2 days
[2024-03-17 12:36] LABS: Basophils # (A) 0.1 k/uL (0-0.2); Basophils % (A) 1 %; Eosinophils # (A) 0.4 k/uL (0-0.7); Eosinophils % (A) 5 %; HCT 46.1 % (34.0-46.0); HGB 15.4 gm/dL (11.4-16.0); Lymphocytes # (A) 2.2 k/uL (1.0-4.8); Lymphocytes % (A) 25 %; MCH 29.8 pg (25.0-35.0); MCHC 33.5 g/dL (31.0-37.0); Mean Platelet Volume 7.8; Monocytes # (A) 0.4 k/uL (0-1.0); Monocytes % (A) 5 %; Neutrophils # (A) 5.6 k/uL (1.3-7.7); Neutrophils % (A) 64 %; Platelet Count 305 k/uL (150-450); RBC 5.17 m/uL (3.80-5.40); RDW 13.4 % (11.5-15.5); WBC 8.7 k/uL (3.8-10.6)
[2024-03-17 12:53] LABS: HCG,Qualitative Serum Not Detected
[2024-03-17 13:01] LABS: ALT 13 U/L (4-34); AST 16 U/L (14-36); African American GFR (CKD) >90 (>60 ml/min/1.73 sqM); Albumin 4.5 g/dL (3.5-5.0); Alkaline Phosphatase 63 U/L (38-126); Anion Gap 9 mmol/L; Blood Urea Nitrogen 9 mg/dL (7-17); Calcium 9.5 mg/dL (8.4-10.2); Carbon Dioxide 27 mmol/L (22-30); Chloride 106 mmol/L (98-107); Glucose 86 mg/dL (74-99); Magnesium 2.3 mg/dL (1.6-2.3); Non-African American GFR(CKD) 86 (>60 ml/min/1.73 sqM); Potassium 4.7 mmol/L (3.5-5.1); Sodium 142 mmol/L (137-145); Total Bilirubin 0.7 mg/dL (0.2-1.3)
--- NOTE | 2024-03-17 14:09 | XR ---
EXAMINATION TYPE: XR chest 2V DATE OF EXAM: 03/17/2024 1:43 PM COMPARISON: 12/30/2023 CLINICAL INDICATION: Female, 28 years old with history of Chest Pain, TECHNIQUE: XR chest 2V view(s) obtained. FINDINGS: The heart size is normal. The pulmonary vasculature is normal. The lungs are clear. IMPRESSION: 1. No acute pulmonary process. [facility], , 03/17/2024 2:06 PM
== END 2024-03-17 18:25 | disposition left against medical advice (07) ==
LOC: EC 11:53
DX: R07.9 Chest pain, unspecified (principal); R20.2 Paresthesia of skin; Z53.29 Procedure and treatment not carried out because of patient's decision for other reasons; F17.290 Nicotine dependence, other tobacco product, uncomplicated; Z88.8 Allergy status to other drugs, medicaments and biological substances; Z91.011 Allergy to milk products; Z91.018 Allergy to other foods
CPT/HCPCS: 36415; 71046; 80053; 80177; 83735; 84484; 84703; 85025; 93005; 99285

== ENCOUNTER 2024-07-03 20:06 | Inpatient (IN) | payer MEDICAID, OTHER ==
--- NOTE | 2024-07-03 20:31 | ED ---
Psych HPI - General Chief Complaint: Psychiatric Symptoms Stated Complaint: 16 weeks ; suicidal Time Seen by Provider: 07/03/24 20:25 Source: patient, RN notes reviewed, old records reviewed Mode of arrival: ambulatory - History of Present Illness Initial Comments: This is a 28-year-old female presenting at 1314 weeks for vaginal bleeding in Patient also admits for needs with mental health and psychiatric help MD Complaint: suicidal ideation, feels depressed, other (Vaginal bleeding positive ) -: days(s) Associated Psychiatric Symptoms: depression, suicidal ideation History of same: Yes Quality: constant Improves With: none Worsens With: none Treatments Prior to Arrival: placed on mental health hold If Self Harm: admits thoughts of self harm - Related Data Previous Rx's Medication Instructions Recorded Acetaminophen Tab [Tylenol] 650 mg PO Q4HR PRN tab 07/07/24 Folic Acid 1 mg PO DAILY tab 07/07/24 Folic Acid 1 mg PO DAILY 30 Days #30 tab 07/07/24 OLANZapine [ZyPREXA] 2.5 mg PO HS 30 Days #30 tab 07/07/24 Sertraline [Zoloft] 50 mg PO DAILY 30 Days #30 tab 07/07/24 Allergies Allergy/AdvReac Type Severity Reaction Status Date / Time carrot Allergy Anaphylaxis Verified 07/04/24 13:59 parsley Allergy Anaphylaxis Verified 07/04/24 13:59 quetiapine [From Seroquel] Allergy Anaphylaxis Verified 07/04/24 13:59 walnut Allergy Rash/Hives Verified 07/04/24 13:59 aripiprazole [From Abilify] AdvReac Unknown Verified 07/04/24 13:59 lamotrigine [From Lamictal] AdvReac Unknown Verified 07/04/24 13:59 Review of Systems ROS Statement: Those systems with pertinent positive or pertinent negative responses have been documented in the HPI. ROS Other: All systems not noted in ROS Statement are negative. Past Medical History Past Medical History: Asthma, Pneumonia, Seizure Disorder Additional Past Medical History / Comment(s): pt states she had a seizure x7 days ago (01/23/2024) History of Any Multi-Drug Resistant Organisms: None Reported Past Surgical History: No Surgical Hx Reported Past Anesthesia/Blood Transfusion Reactions: No Reported Reaction Past Psychological History: Anxiety, Depression Smoking Status: Current every day smoker, Vaper Past Alcohol Use History: Occasional Past Drug Use History: Cocaine, Heroin, Marijuana, Methamphetamine, Opiates, Prescription Drug Abuse - Past Family History Mother Family Medical History: No Reported History Additional Family Medical History / Comment(s): Migranes Father Family Medical History: Diabetes Mellitus, Hypertension Additional Family Medical History / Comment(s): Neuropathy General Exam Limitations: no limitations General appearance: alert, in no apparent distress Head exam: Present: atraumatic, normocephalic, normal inspection Eye exam: Present: normal appearance, PERRL, EOMI. Absent: scleral icterus, conjunctival injection, periorbital swelling ENT exam: Present: normal exam, mucous membranes moist Neck exam: Present: normal inspection. Absent: tenderness, meningismus, lymphadenopathy Respiratory exam: Present: normal lung sounds bilaterally. Absent: respiratory distress, wheezes, rales, rhonchi, stridor Cardiovascular Exam: Present: regular rate, normal rhythm, normal heart sounds. Absent: systolic murmur, diastolic murmur, rubs, gallop, clicks GI/Abdominal exam: Present: soft, normal bowel sounds. Absent: distended, tenderness, guarding, rebound, rigid Extremities exam: Present: normal inspection, full ROM, normal capillary refill. Absent: tenderness, pedal edema, joint swelling, calf tenderness Back exam: Present: normal inspection Neurological exam: Present: alert, oriented X3, CN II-XII intact Psychiatric exam: Present: normal affect, normal mood Skin exam: Present: warm, dry, intact, normal color. Absent: rash Course Vital Signs 07/03/24 07/04/24 20:17 04:53 Temperature 97.7 F 97.6 F Pulse Rate 114 H 89 Respiratory 16 16 Rate Blood Pressure 120/71 93/57 O2 Sat by Pulse 96 95 Oximetry - Reevaluation(s) Reevaluation #1: 07/03/24 20:31 Medical records reviewed Reevaluation #2: Medically clear for psychiatric evaluation Reevaluation #3: Patient informed of results and questions answered Reevaluation #4: Was pt. sent in by a medical professional or institution (, PA, HEAD OF TRAINING AND DEVELOPMENT, urgent care, hospital, or halfway...) When possible be specific @ -no Did you speak to anyone other than the patient for history (EMS, parent, family, police, friend...)? What history was obtained from this source @ -no Did you review nursing and triage notes (agree or disagree)? Why? @ -agree Are old charts reviewed (outside hosp., previous admission, EMS record, old EKG, old radiological studies, urgent care reports/EKG's, halfway records)? Report findings @ -yes Differential Diagnosis (chest pain, altered mental status, abdominal pain women, abdominal pain men, vaginal bleeding, weakness, fever, dyspnea, syncope, headache, dizziness, GI bleed, back pain, seizure, CVA, palpatations, mental health, musculoskeletal)? @ -prior EKG interpreted by me (3pts min.). @ -no X-rays interpreted by me (1pt min.). @ -no CT interpreted by me (1pt min.). @ -no U/S interpreted by me (1pt. min.). @ -Yes positive for IUP What testing was considered but not performed or refused? (CT, X-rays, U/S, l abs)? Why? @ -none What meds were considered but not given or refused? Why? @ -none Did you discuss the management of the patient with other professionals (professionals i.e. , PA, HEAD OF TRAINING AND DEVELOPMENT, lab, RT, psych nurse, delinquency prevention social worker, cost clerk, teacher, project control officer, caser shoe parts)? Give summary @ -no Was smoking cessation discussed for >3mins.? @ -no Was critical care preformed (if so, how long)? @ -no Were there social determinants of health that impacted care today? How? (Homelessness, low income, unemployed, alcoholism, drug addiction, transportation, low edu. Level, literacy, decrease access to med. care, halfway, rehab)? @ -none Was there de-escalation of care discussed even if they declined (Discuss DNR or withdrawal of care, Hospice)? DNR status @ -no What co-morbidities impacted this encounter? (DM, HTN, Smoking, COPD, CAD, Cancer, CVA, ARF, Chemo, Hep., AIDS, mental health diagnosis, sleep apnea, morbid obesity)? @ -none Was patient admitted / discharged? Hospital course, mention meds given and route, prescriptions, significant lab abnormalities, going to OR and other pertinent info. @ -28 female who originally presented with vaginal bleeding and abdominal pain in positive IUP no significant abnormalities medically cleared for psychiatric evaluation and then deemed needing transfer for inpatient psychiatric evaluation and treatment Transferred to a psychiatric unit Undiagnosed new problem with uncertain prognosis? @ -no Drug Therapy requiring intensive monitoring for toxicity (Heparin, Nitro, Insulin, Cardizem)? @ -no Were any procedures done? @ -no Diagnosis/symptom? @ - Acute, or Chronic, or Acute on Chronic? @ -Acute Uncomplicated (without systemic symptoms) or Complicated (systemic symptoms)? @ -Complicated Side effects of treatment? @ -no Exacerbation, Progression, or Severe Exacerbation? @ -exacerbation Poses a threat to life or bodily function? How? (Chest pain, [place], [place], pneumonia, PE, COPD, DKA, ARF, appy, cholecystitis, CVA, Diverticulitis, Homicidal, Suicidal, threat to staff... and all critical care pts) @ -no Medical Decision Making - Medical Decision Making 28 female with vaginal bleeding abdominal pain in ultrasound was positive for IUP. Patient has normal lab testing medically cleared for psychiatric evaluation will need transfer for inpatient psychiatric evaluation and treatment - Lab Data Result diagrams: 07/05/24 07:19 07/05/24 07:19 Lab Results 07/03/24 07/03/24 07/03/24 Range/Units 20:30 21:19 21:20 WBC 12.74 H (4.50-10.00) 10*3/uL RBC 3.77 L (4.10-5.20) 10*6/uL Hgb 11.6 L (12.0-15.0) g/dL Hct 33.3 L (37.2-46.3) % MCV 88.3 (80.0-97.0) fL MCH 30.8 (27.0-32.0) pg MCHC 34.8 (32.0-37.0) g/dL Plt Count 277 (140-440) 10*3/uL MPV 9.7 (9.5-12.2) fL Immature Gran % (Auto) 0.5 % Neutrophils % 78.2 % Lymphocytes % 15.9 % Monocytes % 3.8 % Eosinophils % 1.2 % Basophils % 0.4 % Immature Gran # 0.06 H (0.00-0.04) 10*3/uL Neutrophils # 9.97 H (1.80-7.70) 10*3/uL Lymphocytes # 2.02 (0.90-5.00) 10*3/uL Monocytes # 0.49 (0.20-1.00) 10*3/uL Eosinophils # 0.15 (0.04-0.35) 10*3/uL Basophils # 0.05 (0.00-0.10) 10*3/uL PT (10.0-12.5) sec INR (<1.2) APTT (22.0-30.0) sec Sodium (137-145) mmol/L Potassium (3.5-5.1) mmol/L Chloride (98-107) mmol/L Carbon Dioxide (22-30) mmol/L Anion Gap mmol/L BUN (7-17) mg/dL Creatinine (0.52-1.04) mg/dL Est GFR (CKD-EPI)AfAm (>60 ml/min/1.73 sqM) Est GFR (CKD-EPI)NonAf (>60 ml/min/1.73 sqM) Glucose (74-99) mg/dL Calcium (8.4-10.2) mg/dL Total Bilirubin (0.2-1.3) mg/dL AST (14-36) U/L ALT (4-34) U/L Alkaline Phosphatase (38-126) U/L Total Protein (6.3-8.2) g/dL Albumin (3.5-5.0) g/dL HCG, Quant mIU/mL Urine HCG, Qual Detected (Not Detectd) SARS-CoV-2 (PCR) (Not Detectd) Blood Type O Positive Blood Type Recheck O Pos Bld Type Recheck Status [facility] ONLY 07/03/24 07/03/24 07/04/24 Range/Units 21:20 21:20 00:24 WBC (4.50-10.00) 10*3/uL RBC (4.10-5.20) 10*6/uL Hgb (12.0-15.0) g/dL Hct (37.2-46.3) % MCV (80.0-97.0) fL MCH (27.0-32.0) pg MCHC (32.0-37.0) g/dL Plt Count (140-440) 10*3/uL MPV (9.5-12.2) fL Immature Gran % (Auto) % Neutrophils % % Lymphocytes % % Monocytes % % Eosinophils % % Basophils % % Immature Gran # (0.00-0.04) 10*3/uL Neutrophils # (1.80-7.70) 10*3/uL Lymphocytes # (0.90-5.00) 10*3/uL Monocytes # (0.20-1.00) 10*3/uL Eosinophils # (0.04-0.35) 10*3/uL Basophils # (0.00-0.10) 10*3/uL PT 10.2 (10.0-12.5) sec INR 0.9 (<1.2) APTT 22.4 (22.0-30.0) sec Sodium 135 L (137-145) mmol/L Potassium 2.8 L 3.7 (3.5-5.1) mmol/L Chloride 109 H (98-107) mmol/L Carbon Dioxide 17 L (22-30) mmol/L Anion Gap 9 mmol/L BUN 8 (7-17) mg/dL Creatinine 0.41 L (0.52-1.04) mg/dL Est GFR (CKD-EPI)AfAm >90 (>60 ml/min/1.73 sqM) Est GFR (CKD-EPI)NonAf >90 (>60 ml/min/1.73 sqM) Glucose 111 H (74-99) mg/dL Calcium 7.2 L (8.4-10.2) mg/dL Total Bilirubin 0.4 (0.2-1.3) mg/dL AST 16 (14-36) U/L ALT 15 (4-34) U/L Alkaline Phosphatase 50 (38-126) U/L Total Protein 5.0 L (6.3-8.2) g/dL Albumin 2.7 L (3.5-5.0) g/dL HCG, Quant 52580.6 mIU/mL Urine HCG, Qual (Not Detectd) SARS-CoV-2 (PCR) (Not Detectd) Blood Type Blood Type Recheck Bld Type Recheck Status 07/04/24 Range/Units 00:27 WBC (4.50-10.00) 10*3/uL RBC (4.10-5.20) 10*6/uL Hgb (12.0-15.0) g/dL Hct (37.2-46.3) % MCV (80.0-97.0) fL MCH (27.0-32.0) pg MCHC (32.0-37.0) g/dL Plt Count (140-440) 10*3/uL MPV (9.5-12.2) fL Immature Gran % (Auto) % Neutrophils % % Lymphocytes % % Monocytes % % Eosinophils % % Basophils % % Immature Gran # (0.00-0.04) 10*3/uL Neutrophils # (1.80-7.70) 10*3/uL Lymphocytes # (0.90-5.00) 10*3/uL Monocytes # (0.20-1.00) 10*3/uL Eosinophils # (0.04-0.35) 10*3/uL Basophils # (0.00-0.10) 10*3/uL PT (10.0-12.5) sec INR (<1.2) APTT (22.0-30.0) sec Sodium (137-145) mmol/L Potassium (3.5-5.1) mmol/L Chloride (98-107) mmol/L Carbon Dioxide (22-30) mmol/L Anion Gap mmol/L BUN (7-17) mg/dL Creatinine (0.52-1.04) mg/dL Est GFR (CKD-EPI)AfAm (>60 ml/min/1.73 sqM) Est GFR (CKD-EPI)NonAf (>60 ml/min/1.73 sqM) Glucose (74-99) mg/dL Calcium (8.4-10.2) mg/dL Total Bilirubin (0.2-1.3) mg/dL AST (14-36) U/L ALT (4-34) U/L Alkaline Phosphatase (38-126) U/L Total Protein (6.3-8.2) g/dL Albumin (3.5-5.0) g/dL HCG, Quant mIU/mL Urine HCG, Qual (Not Detectd) SARS-CoV-2 (PCR) Not Detected (Not Detectd) Blood Type Blood Type Recheck Bld Type Recheck Status - Radiology Data Radiology results: report reviewed (Ultrasound is positive for IUP), image reviewed Disposition Clinical Impression: Major depressive disorder, recurrent, severe with psychotic features, Bipolar II disorder major depressive with atypical features, Polysubstance use disorder, Generalized anxiety disorder, 19 weeks gestation of Disposition: TRANSFER TO PSYCH HOSP/UNIT Condition: Fair Is patient prescribed a controlled substance at d/c from ED?: No
[2024-07-03 21:26] LABS: Basophils # (A) 0.05 10*3/uL (0.00-0.10); Basophils % (A) 0.4 %; Eosinophils # (A) 0.15 10*3/uL (0.04-0.35); Eosinophils % (A) 1.2 %; HCT 33.3 % (37.2-46.3); HGB 11.6 g/dL (12.0-15.0); Lymphocytes # (A) 2.02 10*3/uL (0.90-5.00); Lymphocytes % (A) 15.9 %; MCH 30.8 pg (27.0-32.0); MCHC 34.8 g/dL (32.0-37.0); MCV 88.3 fL (80.0-97.0); Mean Platelet Volume 9.7 fL (9.5-12.2); Monocytes # (A) 0.49 10*3/uL (0.20-1.00); Monocytes % (A) 3.8 %; Neutrophils # (A) 9.97 10*3/uL (1.80-7.70); Neutrophils % (A) 78.2 %; Platelet Count 277 10*3/uL (140-440); RBC 3.77 10*6/uL (4.10-5.20); RDW 13.6 % (11.5-14.5); WBC 12.74 10*3/uL (4.50-10.00)
[2024-07-03] MEDS: SODIUM CHLORIDE 0.9% 1,000 ML IV ONE (21:36)
[2024-07-03 21:37] LABS: INR 0.9 (<1.2); Partial Thromboplastin Time 22.4 sec (22.0-30.0); Prothrombin Time 10.2 sec (10.0-12.5)
[2024-07-03 21:38] LABS: ALT 15 U/L (4-34); AST 16 U/L (14-36); African American GFR (CKD) >90 (>60 ml/min/1.73 sqM); Albumin 2.7 g/dL (3.5-5.0); Alkaline Phosphatase 50 U/L (38-126); Anion Gap 9 mmol/L; Blood Urea Nitrogen 8 mg/dL (7-17); Calcium 7.2 mg/dL (8.4-10.2); Carbon Dioxide 17 mmol/L (22-30); Chloride 109 mmol/L (98-107); Glucose 111 mg/dL (74-99); Non-African American GFR(CKD) >90 (>60 ml/min/1.73 sqM); Potassium 2.8 mmol/L (3.5-5.1); Sodium 135 mmol/L (137-145); Total Bilirubin 0.4 mg/dL (0.2-1.3)
--- NOTE | 2024-07-03 21:49 | US ---
EXAMINATION TYPE: US OB >= 14 wk fetus DATE OF EXAM: 07/03/2024 COMPARISON: None CLINICAL INDICATION: Female, 28 years old with history of vagBleeding; patient states vag bleeding si nce yesterday, states it is heavier bleeding like a period. states slight cramping TECHNIQUE: Transabdominal (TA) FINDINGS: GESTATIONAL AGE / DATING Physician Established: (17 weeks/4 days) EDC: 12/07/2024 Dates by LMP: LMP unknown Dates by First Scan: No previous this is first scan at this facility Dates by Current Scan: (18 weeks/5 days) EDC: 11/29/2024 Beta HCG (if available): Not available at this time SURVEY IUP: Single PLACENTA: Posterior PREVIA: the placenta appears to be low lying measuring 1.3cm away from the internal os PARI: 12.6 cm Normal CERVICAL LENGTH (transabdominal: norm > 3.0cm): 3.0 cm BIOMETRY PRESENTATION: breech, however fetus is very mobile LIE: Longitudinal BPD: 4.0 cm 18 weeks / 2 days HC: 14.8 cm 18 weeks / 0 days AC: 13.83 cm 19 weeks / 2 days FL: 2.86 cm 18 weeks / 6 days ESTIMATED WEIGHT IN GRAMS: 263 grams ESTIMATED WEIGHT IN LBS/OZ: 0 lbs. 9 oz. WEIGHT PERCENTAGE BASED ON ESTABLISHED DATES: 98% HC/AC: 1.07 Normal FL/AC: 21% HEART RATE: 134 bpm RHYTHM: Normal IMPRESSION: 1. Single live intrauterine gestation ultrasound age 18 weeks 5 days. No evidence for acute process. 2. Low-lying placenta measuring 1.3 cm away from the internal cervical os. [facility], , 07/03/2024 9:47 PM
[2024-07-03 22:20] LABS: HCG,Quantitative Serum 17258.6 mIU/mL
[2024-07-03] MEDS: POTASSIUM CHLORIDE ER 20 MEQ TAB.ER PO STA ×2 (22:33→22:35)
[2024-07-04] MEDS: ACETAMINOPHEN TAB 325 MG TAB PO PRN (11:12)
[2024-07-04] MEDS: SERTRALINE 25 MG TAB PO SCH (11:13)
--- NOTE | 2024-07-04 11:21 | P.HP ---
Psychiatric H&P - . H&P Date: 07/04/24 History & Physical: Allergies Allergy/AdvReac Type Severity Reaction Status Date / Time carrot Allergy Anaphylaxis Verified 07/03/24 20:21 parsley Allergy Anaphylaxis Verified 07/03/24 20:21 quetiapine [From Seroquel] Allergy Anaphylaxis Verified 07/03/24 20:21 walnut Allergy Rash/Hives Verified 07/03/24 20:21 aripiprazole [From Abilify] AdvReac Unknown Verified 07/03/24 20:21 lamotrigine [From Lamictal] AdvReac Unknown Verified 07/03/24 20:21 Vital Signs Temp 97.2 F L 07/04/24 09:20 Pulse 92 07/04/24 09:20 Resp 18 07/04/24 09:20 BP 101/67 07/04/24 09:20 Pulse Ox 100 07/04/24 09:20 FiO2 Intake & Output 07/03/24 07/04/24 07/04/24 18:59 06:59 18:59 Weight 82.1 kg Laboratory Last Values WBC 12.74 10*3/uL (4.50-10.00) H 07/03/24 21:20 RBC 3.77 10*6/uL (4.10-5.20) L 07/03/24 21:20 Hgb 11.6 g/dL (12.0-15.0) L 07/03/24 21:20 Hct 33.3 % (37.2-46.3) L 07/03/24 21:20 MCV 88.3 fL (80.0-97.0) 07/03/24 21:20 MCH 30.8 pg (27.0-32.0) 07/03/24 21:20 MCHC 34.8 g/dL (32.0-37.0) 07/03/24 21:20 Plt Count 277 10*3/uL (140-440) 07/03/24 21:20 MPV 9.7 fL (9.5-12.2) 07/03/24 21:20 Immature Gran % (Auto) 0.5 % 07/03/24 21:20 Neutrophils % 78.2 % 07/03/24 21:20 Lymphocytes % 15.9 % 07/03/24 21:20 Monocytes % 3.8 % 07/03/24 21:20 Eosinophils % 1.2 % 07/03/24 21:20 Basophils % 0.4 % 07/03/24 21:20 Immature Gran # 0.06 10*3/uL (0.00-0.04) H 07/03/24 21:20 Neutrophils # 9.97 10*3/uL (1.80-7.70) H 07/03/24 21:20 Lymphocytes # 2.02 10*3/uL (0.90-5.00) 07/03/24 21:20 Monocytes # 0.49 10*3/uL (0.20-1.00) 07/03/24 21:20 Eosinophils # 0.15 10*3/uL (0.04-0.35) 07/03/24 21:20 Basophils # 0.05 10*3/uL (0.00-0.10) 07/03/24 21:20 PT 10.2 sec (10.0-12.5) 07/03/24 21:20 INR 0.9 (<1.2) 07/03/24 21:20 APTT 22.4 sec (22.0-30.0) 07/03/24 21:20 Sodium 135 mmol/L (137-145) L 07/03/24 21:20 Potassium 3.7 mmol/L (3.5-5.1) 07/04/24 00:24 Chloride 109 mmol/L (98-107) H 07/03/24 21:20 Carbon Dioxide 17 mmol/L (22-30) L 07/03/24 21:20 Anion Gap 9 mmol/L 07/03/24 21:20 BUN 8 mg/dL (7-17) 07/03/24 21:20 Creatinine 0.41 mg/dL (0.52-1.04) L 07/03/24 21:20 Est GFR (CKD-EPI)AfAm >90 (>60 ml/min/1.73 sqM) 07/03/24 21:20 Est GFR (CKD-EPI)NonAf >90 (>60 ml/min/1.73 sqM) 07/03/24 21:20 Glucose 111 mg/dL (74-99) H 07/03/24 21:20 Calcium 7.2 mg/dL (8.4-10.2) L 07/03/24 21:20 Total Bilirubin 0.4 mg/dL (0.2-1.3) 07/03/24 21:20 AST 16 U/L (14-36) 07/03/24 21:20 ALT 15 U/L (4-34) 07/03/24 21:20 Alkaline Phosphatase 50 U/L (38-126) 07/03/24 21:20 Total Protein 5.0 g/dL (6.3-8.2) L 07/03/24 21:20 Albumin 2.7 g/dL (3.5-5.0) L 07/03/24 21:20 HCG, Quant 83803.6 mIU/mL 07/03/24 21:20 Urine HCG, Qual Detected (Not Detectd) 07/03/24 20:30 SARS-CoV-2 (PCR) Not Detected (Not Detectd) 07/04/24 00:27 Blood Type O Positive 07/03/24 21:19 Blood Type Recheck O Pos 07/03/24 21:19 Bld Type Recheck Status [facility] ONLY 07/03/24 21:19 07/04/24 10:58 IDENTIFYING DATA: Patient is a 28-year-old single female, unemployed with 1 son, lives with the babys father [facility]. Patient is 16 weeks HPI: Patient presented to the hospital with suicidal thoughts, depression off her medications and reportedly 16 weeks . Patient was seen by EPS nurse and according to note "Pt. sleeping on stretcher easily aroused to name. Pt Claims SI and increased depression. Main stressor is her . Pt has not taken any meds since she found out she was approximately 14 weeks ago. Pt is 18wks . Pt. agrees to voulantary admission." Patient seen and evaluated today by web content writer for assessment. patient was agreeable to speak to web content writer in office. Patient states that she was having suicidal thoughts, claims that she started "bleeding" and came into the hospital for evaluation. States that they did an ultrasound and will be seeing a SENIOR CONSTRUCTION ESTIMATOR. Claims that for the past couple of days she has been having the suicidal thoughts, no specific plan. Claims that it is mainly centered around "being " regarding her stressors. States that her family is not happy that she is and her older son is also not happy. She states that her mood has been a bit depressed however is a bit better since being on the unit. Claims that she is having mild anxiety at this time. Does have a history of bipolar disorder. Claims that her sleep and appetite are fair. Claims that she has been off her psychiatric medications for about a month now and was previously discharged on Zyprexa and Zoloft. Has not been going to [facility] for follow-up. Claims that she smokes marijuana occasionally. Claims that she uses vape nicotine products daily. Patient denies any current suicidal or homicidal ideations intent or plan. At this time patient denies any auditory or visual hallucinations. Patient denies any flight of ideas racing thoughts and increased in goal directed behavior. PAST PSYCHIATRIC HISTORY: Patient has a history of bipolar, methamphetamine use disorder, opioid abuse, cannabis use disorder. Patient is now off psych meds however was previously on Zyprexa, Zoloft, latuda and buspar. She has tried Prozac, BuSpar, Zoloft, Lamictal, Seroquel, Celexa in the past as well. She has had 4 inpatient hospitalizations, most recent 05/09 on the [facility]. Patient denies any psychiatric outpatient follow-up. Patient reports 2 prior suicide attempts. PMH: as per ER note ALLERGIES: as per EMR SUBSTANCE USE HISTORY: As per HPI FAMILY PSYCHIATRIC/SUBSTANCE USE HISTORY: Patient reports her sister has bipolar disorder and her dad suffered from depression SOCIAL HISTORY: Patient has 1 son and is currently unemployed, completing some college for schooling. She reports a 50-day stent in group home related to attempted murder and obstruction of justice. lives with the babys father in a trailer. MENTAL STATUS EXAM: General Appearance: Patient appears to mildly overweight, have curly hair, be stated age is alert, directable, and attempts to cooperate. Patient appears to have fair hygiene and grooming. Behavior: Patient is seated without any agitated behavior. Attempts to cooperate Speech: Patient's speech is fluent and nonpressured. Fairly concrete Mood/Affect: Patient reports their mood is depressed a bit anxious, affect is incongruent and smiling Suicidality/Homicidality: Patient denies having any homicidal ideation intent or plan. Denies any current suicidal ideations intent or plan Perceptions: Patient denies any visual hallucinations and denies any auditory hallucinations Though content/process: There is no evidence of any delusional thought content and thought process is linear and goal-directed. Fairly concrete Memory and concentration: AOX3, grossly intact for the purposes of this session. Can spell "WORLD" backwards Judgment and insight: poor STRENGTHS/WEAKNESSES: strength is that patient is resilient and has proper housing. Weakness is that patient has poor judgment, is impulsive, history of substance use INTELLECT: Average IMPRESSIONS: bipolar depression non compliance with medication regimen Hx of Polysubstance use disorder (methamphetamine, opioids and crack cocaine) Generalized anxiety disorder Cannabis use disorder Nicotine dependence PLAN: -Patient is admitted under voluntary status to [facility] for stabilization of psychiatric symptoms and safety. Patient has signed adult voluntary form and medication consent and is placed in patient's chart. -Medications : zyprexa 2.5 mg qhs for bipolar depression/sleep, Zoloft 25 mg nightly for mood/anxiety. These doses can be adjusted in the next few days if tolerated/needed. Parts Person spoke with patient in detail about the risks versus benefits and potential harm to fetus during . Patient decided that the benefits will outweigh the risks of treatment versus nontreatment. Agreeable to start medications now. Parts Person offered patient further information on the psychotropic medications however patient declined at this time. -zyprexa PRN for agitation/aggression -Patient was counselled on substance abuse and desired to cut back on use -Patient was informed of the risks, benefits and side effects of the medication and patient verbally consented to taking the medications. Patient signed med consent form and was placed in chart. offered medication information sheet however she declined. -Internal Medicine consult to perform medical evaluation and physical. patient claims that she is not willing to be restarted on AED at this time due to her despite the risk. -NRT -nicotine patch -SW on board for discharge planning. Encourage patient to participate in groups to work on coping skills. 07/04/24 11:14 07/04/24 11:15
--- NOTE | 2024-07-04 12:58 | P.CONS ---
History of Present Illness - Reason for Consult Consult date: 07/04/24 medical management - History of Present Illness Morenita Coronado is a 28-year-old female patient who presented to the ER with concerns of suicidal thoughts and increased depression patient has been off her medications for some time due to . Patient reports she is about 16 weeks patient reports she has not taking any meds since she found out she was but over the past few days has had increased bleeding. Patient has a past medical history of bipolar disorder vaping history of polysubstance abuse methamphetamines opioids and crack cocaine. ultrasound completed showing single live intrauterine gestation ultrasound age 15 weeks and 5 days no evidence for acute process low-lying placenta measuring 1.3 cm away from the cervical os. Patient reports she has not seen any TOOL CRIB CLERK in this . Reports she still has IUD in place. Lab work completed showing white blood cell 12.74, hemoglobin 11.6 potassium low at 2.8 this was replaced repeat level 3.7. At this time patient will be admitted. TOOL CRIB CLERK has been consulted. Will also consult neuro services due to patient being off all medications including seizure medications. Patient reports her last seizure was over a year ago. Will also check urinary analysis due to leukocytosis. At this time patient denies chest pain or shortness of breath. Patient denies nausea vomiting or diarrhea. Patient denies any urinary burning or frequency. Current vital signs temp 97.2, heart rate 92, respiratory rate 18, blood pressure 101/67 with a pulse ox of 100% on room air Review of Systems Please refer to HPI otherwise unremarkable Past Medical History Past Medical History: Asthma, Pneumonia, Seizure Disorder Additional Past Medical History / Comment(s): pt states she had a seizure x7 days ago (01/23/2024) History of Any Multi-Drug Resistant Organisms: None Reported Past Surgical History: No Surgical Hx Reported Past Anesthesia/Blood Transfusion Reactions: No Reported Reaction Past Psychological History: Anxiety, Depression Smoking Status: Current every day smoker, Vaper Past Alcohol Use History: Occasional Past Drug Use History: Cocaine, Heroin, Marijuana, Methamphetamine, Opiates, Prescription Drug Abuse - Past Family History Mother Family Medical History: No Reported History Additional Family Medical History / Comment(s): Migranes Father Family Medical History: Diabetes Mellitus, Hypertension Additional Family Medical History / Comment(s): Neuropathy Medications and Allergies Home Medications Medication Instructions Recorded Confirmed Type Folic Acid 1 mg PO DAILY 30 Days #30 tab 05/01/24 07/04/24 Rx OLANZapine [ZyPREXA] 2.5 mg PO HS 30 Days #30 tab 05/01/24 07/04/24 Rx Sertraline [Zoloft] 50 mg PO HS 30 Days #30 tab 05/01/24 07/04/24 Rx levETIRAcetam [Keppra] 500 mg PO Q12HR 30 Days #30 tab 05/01/24 07/04/24 Rx Allergies Allergy/AdvReac Type Severity Reaction Status Date / Time carrot Allergy Anaphylaxis Verified 07/04/24 12:38 parsley Allergy Anaphylaxis Verified 07/04/24 12:38 quetiapine [From Seroquel] Allergy Anaphylaxis Verified 07/04/24 12:38 walnut Allergy Rash/Hives Verified 07/04/24 12:38 aripiprazole [From Abilify] AdvReac Unknown Verified 07/04/24 12:38 lamotrigine [From Lamictal] AdvReac Unknown Verified 07/04/24 12:38 Physical Exam Vitals: Vital Signs Temp Pulse Pulse Resp BP BP Pulse Ox 07/04/24 09:20 97.2 F L 92 18 101/67 100 07/04/24 05:25 82 18 99/64 99 07/04/24 04:53 97.6 F 89 16 93/57 95 07/03/24 20:17 97.7 F 114 H 16 120/71 96 Intake and Output 07/03/24 07/04/24 07/04/24 22:59 06:59 14:59 Other: Weight 82.1 kg Head normocephalic Neck supple Lungs clear to auscultation bilaterally no wheezing or crackles Heart regular rate and rhythm S1-S2, no rub or gallop Abdomen is soft nontender nondistended positive bowel sounds no hepatosplenomegaly Extremities no edema Neuro alert and orientated to 3 Results CBC & Chem 7: 07/03/24 21:20 07/04/24 00:24 Labs: Abnormal Lab Results - Last 24 Hours (Table) 07/03/24 07/03/24 Range/Units 21:20 21:20 WBC 12.74 H (4.50-10.00) 10*3/uL RBC 3.77 L (4.10-5.20) 10*6/uL Hgb 11.6 L (12.0-15.0) g/dL Hct 33.3 L (37.2-46.3) % Immature Gran # 0.06 H (0.00-0.04) 10*3/uL Neutrophils # 9.97 H (1.80-7.70) 10*3/uL Sodium 135 L (137-145) mmol/L Potassium 2.8 L (3.5-5.1) mmol/L Chloride 109 H (98-107) mmol/L Carbon Dioxide 17 L (22-30) mmol/L Creatinine 0.41 L (0.52-1.04) mg/dL Glucose 111 H (74-99) mg/dL Calcium 7.2 L (8.4-10.2) mg/dL Total Protein 5.0 L (6.3-8.2) g/dL Albumin 2.7 L (3.5-5.0) g/dL Assessment and Plan Assessment: 1. Suicidal thoughts 2. Vaginal bleeding with 3. patient is reportedly approximately 16 weeks 4. History of seizures 5. Noncompliance with medication patient apparently took herself off all medication when she found out she was 2 6. History of polysubstance abuse including methamphetamines cocaine and opioids 7. Leukocytosis urinary analysis was been ordered At this time patient has been admitted to the mental health unit TOOL CRIB CLERK and neurology services consulted Urinary analysis ordered repeat labs ordered Time with Patient: Greater than 30 (Greater than 60% of the total time spent in counseling and coordination of care)
--- NOTE | 2024-07-04 16:25 | P.CNNES ---
History of Present Illness Consult date: 07/04/24 Requesting physician: Rodney Ellis Reason for Consult: hx of seizure, stopped medication History of Present Illness: This is a 28-year-old woman with history of seizure who is not on any antiseizure medication, close was 16 weeks gestation, polysubstance abuse, suicidal ideation, history of depression who is admitted to the psych hummel because of suicidal thoughts. Neurology is consulted because of her history of seizure and she is not on any antiseizure medication. I personally seen the patient last on 04/28/2024 because of the same issue and I recommended the patient to be on Keppra 500 mg twice a day and she stated that in the past she was on Keppra and did not have any side effects but then afterwards she refused to be on medication since she is on . Patient states that she has not had any seizure since more than a year ago at least. She has not followed up with a neurologist yet since I seen her last. Has been refusing to be on any antiseizure medication. Review of Systems As per HPI. Past Medical History Past Medical History: Asthma, Pneumonia, Seizure Disorder Additional Past Medical History / Comment(s): pt states she had a seizure x7 days ago (01/23/2024) History of Any Multi-Drug Resistant Organisms: None Reported Past Surgical History: No Surgical Hx Reported Past Anesthesia/Blood Transfusion Reactions: No Reported Reaction Smoking Status: Current every day smoker, Vaper - Past Family History Mother Family Medical History: No Reported History Additional Family Medical History / Comment(s): Migranes Father Family Medical History: Diabetes Mellitus, Hypertension Additional Family Medical History / Comment(s): Neuropathy Medications and Allergies Home Medications Medication Instructions Recorded Confirmed Type Folic Acid 1 mg PO DAILY 30 Days #30 tab 05/01/24 07/04/24 Rx OLANZapine [ZyPREXA] 2.5 mg PO HS 30 Days #30 tab 05/01/24 07/04/24 Rx Sertraline [Zoloft] 50 mg PO HS 30 Days #30 tab 05/01/24 07/04/24 Rx levETIRAcetam [Keppra] 500 mg PO Q12HR 30 Days #30 tab 05/01/24 07/04/24 Rx Allergies Allergy/AdvReac Type Severity Reaction Status Date / Time carrot Allergy Anaphylaxis Verified 07/04/24 13:59 parsley Allergy Anaphylaxis Verified 07/04/24 13:59 quetiapine [From Seroquel] Allergy Anaphylaxis Verified 07/04/24 13:59 walnut Allergy Rash/Hives Verified 07/04/24 13:59 aripiprazole [From Abilify] AdvReac Unknown Verified 07/04/24 13:59 lamotrigine [From Lamictal] AdvReac Unknown Verified 07/04/24 13:59 Physical Examination - Vital Signs Vital Signs: Vital Signs Temp Pulse Pulse Resp BP BP Pulse Ox 07/04/24 09:20 97.2 F L 92 18 101/67 100 07/04/24 05:25 82 18 99/64 99 07/04/24 04:53 97.6 F 89 16 93/57 95 07/03/24 20:17 97.7 F 114 H 16 120/71 96 Intake and Output 07/04/24 07/04/24 07/04/24 06:59 14:59 22:59 Intake Total 300 Balance 300 Intake: Oral 300 Other: Weight 82.1 kg GENERAL: The patient is lying in bed and is not in acute distress. NEUROLOGICAL: Higher mental function: The patient is awake, alert, oriented to self, place and time. Patient is following commands. No aphasia and no neglect. Cranial nerves: The pupils are round, equal and reactive to light and accommodation. Visual paiz are full to confrontation throughout. Extraocular movement is intact no nystagmus is noted. Facial sensation is normal to touch throughout. The facial strength is normal throughout. Hearing is normal bilaterally to hand rub. Tongue is midline and moved [id number] without any difficulty. No dysarthria is noted. Shoulder shrug is normal bilaterally. Motor: Gait is normal. The strength is 5 over 5 throughout. Normal tone and bulk. Cerebellum: Normal finger to nose bilaterally. Sensation: Sensation is normal to touch throughout. Results - Laboratory Findings CBC and BMP: 07/03/24 21:20 07/04/24 00:24 Abnormal Lab Findings: Abnormal Labs 07/03/24 07/03/24 21:20 21:20 WBC 12.74 H RBC 3.77 L Hgb 11.6 L Hct 33.3 L Immature Gran # 0.06 H Neutrophils # 9.97 H Sodium 135 L Potassium 2.8 L Chloride 109 H Carbon Dioxide 17 L Creatinine 0.41 L Glucose 111 H Calcium 7.2 L Total Protein 5.0 L Albumin 2.7 L Assessment and Plan Assessment: Patient is a 28-year-old woman with history of seizure who was last seizure was about at least more than a year ago and she is refusing to be on any antiseizure medication, depression, polysubstance abuse, suicidal thoughts who was admitted to the psych hummel because of suicidal thoughts. Suicidal thoughts Close to 16 weeks gestation History of seizures and in the past she was on Keppra she had an EEG in 2016 which was reported as normal. I have seen her in April 2024 and recommended Keppra and she was in agreement but then refused afterwards. Questionable demonic disease in 2017 but never followed up as an outpatient History of polysubstance abuse Tobacco use History of marijuana use History of depression Plan: I recommended the patient to resume Keppra 500 mg twice a day but patient refused to be on any seizure medication. She stated in the past she did not have any side effects of the medication. If she does resume Keppra and has side-effect especially with her psych issues then consider switching to Briviact 50 mg twice daily since it has lower psych issues. She states that she has side effects to Lamictal. 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 Seizure precautions seizure pads Recommend the patient to follow-up with outpatient neurologist within 2 weeks regarding seizure and questionable workup for demyelinating disease I started the patient on folic acid 1 mg daily. Will defer the rest of the medical management department other specialist Thank you for the consultation Otherwise no additional neurological workup. Will sign off. Please reconsult if needed. Time with Patient: Greater than 30
[2024-07-04] MEDS: FOLIC ACID 1 MG TAB PO SCH (17:38)
[2024-07-04] MEDS: OLANZapine 2.5 MG TAB PO SCH (21:35)
[2024-07-05 07:52] LABS: Basophils # (A) 0.05 10*3/uL (0.00-0.10); Basophils % (A) 0.5 %; Eosinophils # (A) 0.27 10*3/uL (0.04-0.35); Eosinophils % (A) 2.7 %; HCT 34.1 % (37.2-46.3); HGB 11.5 g/dL (12.0-15.0); Lymphocytes # (A) 2.32 10*3/uL (0.90-5.00); Lymphocytes % (A) 23.4 %; MCH 30.3 pg (27.0-32.0); MCHC 33.7 g/dL (32.0-37.0); MCV 89.7 fL (80.0-97.0); Monocytes # (A) 0.58 10*3/uL (0.20-1.00); Monocytes % (A) 5.8 %; Neutrophils # (A) 6.67 10*3/uL (1.80-7.70); Neutrophils % (A) 67.2 %; Platelet Count 263 10*3/uL (140-440); RDW 13.9 % (11.5-14.5); WBC 9.93 10*3/uL (4.50-10.00)
[2024-07-05 08:06] LABS: ALT 21 U/L (4-34); AST 23 U/L (14-36); African American GFR (CKD) >90 (>60 ml/min/1.73 sqM); Albumin 3.1 g/dL (3.5-5.0); Alkaline Phosphatase 51 U/L (38-126); Anion Gap 7 mmol/L; Blood Urea Nitrogen 5 mg/dL (7-17); Calcium 8.8 mg/dL (8.4-10.2); Carbon Dioxide 22 mmol/L (22-30); Chloride 106 mmol/L (98-107); Glucose 74 mg/dL (74-99); Non-African American GFR(CKD) >90 (>60 ml/min/1.73 sqM); Potassium 4.1 mmol/L (3.5-5.1); Sodium 135 mmol/L (137-145); Total Bilirubin 0.7 mg/dL (0.2-1.3); Total Protein 5.8 g/dL (6.3-8.2)
--- NOTE | 2024-07-05 08:29 | P.OBCN ---
History of Present Illness Consult date: 07/05/24 Reason for consult: other () Chief complaint: suicidal ideation History of present illness: 28-year-old G2, P1 presented to the emergency room with some vaginal bleeding. Ultrasound showed 18-week 5-day fetus with a low-lying placenta but no signs of abruption. Patient's bleeding has stopped, she was admitted for suicidal ideation. Patient has had issues using drugs and being homeless for the last year. She was using crack and fentanyl. Patient does want to keep the and she wants to stay clean but knows that if she is around this drugs she will use again. She also has a history of seizure disorder but says that Keppra makes her seizures worse. She also has a history of bipolar disorder and was off her medication. At this moment patient is not having any bleeding or cramping Review of Systems All systems: negative Constitutional: Denies chills, Denies fever Eyes: denies blurred vision, denies pain Ears, nose, mouth and throat: Denies headache, Denies sore throat Cardiovascular: Denies chest pain, Denies shortness of breath Respiratory: Denies cough Gastrointestinal: Denies abdominal pain, Denies diarrhea, Denies nausea, Denies vomiting Genitourinary: Denies dysuria, Denies hematuria Musculoskeletal: Denies myalgias Integumentary: Denies pruritus, Denies rash Neurological: Denies numbness, Denies weakness Psychiatric: Denies anxiety, Denies depression Endocrine: Denies fatigue, Denies weight change Past Medical History Past Medical History: Asthma, Pneumonia, Seizure Disorder Additional Past Medical History / Comment(s): pt states she had a seizure x7 days ago (01/23/2024) History of Any Multi-Drug Resistant Organisms: None Reported Past Surgical History: No Surgical Hx Reported Past Anesthesia/Blood Transfusion Reactions: No Reported Reaction Smoking Status: Current every day smoker, Vaper - Past Family History Mother Family Medical History: No Reported History Additional Family Medical History / Comment(s): Migranes Father Family Medical History: Diabetes Mellitus, Hypertension Additional Family Medical History / Comment(s): Neuropathy Medications and Allergies Home Medications Medication Instructions Recorded Confirmed Type Folic Acid 1 mg PO DAILY 30 Days #30 tab 05/01/24 07/04/24 Rx OLANZapine [ZyPREXA] 2.5 mg PO HS 30 Days #30 tab 05/01/24 07/04/24 Rx Sertraline [Zoloft] 50 mg PO HS 30 Days #30 tab 05/01/24 07/04/24 Rx levETIRAcetam [Keppra] 500 mg PO Q12HR 30 Days #30 tab 05/01/24 07/04/24 Rx Allergies Allergy/AdvReac Type Severity Reaction Status Date / Time carrot Allergy Anaphylaxis Verified 07/04/24 13:59 parsley Allergy Anaphylaxis Verified 07/04/24 13:59 quetiapine [From Seroquel] Allergy Anaphylaxis Verified 07/04/24 13:59 walnut Allergy Rash/Hives Verified 07/04/24 13:59 aripiprazole [From Abilify] AdvReac Unknown Verified 07/04/24 13:59 lamotrigine [From Lamictal] AdvReac Unknown Verified 07/04/24 13:59 Exam Osteopathic Statement: *. No significant issues noted on an osteopathic structural exam other than those noted in the History and Physical/Consult. Vital Signs Temp Pulse Resp BP Pulse Ox 07/04/24 21:00 97.6 F 66 16 106/72 100 07/04/24 09:20 97.2 F L 92 18 101/67 100 Intake and Output 07/04/24 07/05/24 07/05/24 22:59 06:59 14:59 Intake Total 300 Balance 300 Intake: Oral 300 Heart: Regular rate and rhythm Lungs: Clear to auscultation bilaterally Abdomen: Soft, nontender Extremities: Negative Homans sign Results Result Diagrams: 07/05/24 07:19 07/05/24 07:19 Abnormal Lab Results - Last 24 Hours (Table) 07/05/24 07/05/24 Range/Units 07:19 07:19 RBC 3.80 L (4.10-5.20) 10*6/uL Hgb 11.5 L (12.0-15.0) g/dL Hct 34.1 L (37.2-46.3) % Sodium 135 L (137-145) mmol/L BUN 5 L (7-17) mg/dL Creatinine 0.50 L (0.52-1.04) mg/dL Total Protein 5.8 L (6.3-8.2) g/dL Albumin 3.1 L (3.5-5.0) g/dL Assessment and Plan (1) 19 weeks gestation of Current Visit: Yes Status: Acute Code(s): Z3A.19 - 19 WEEKS GESTATION OF SNOMED Code(s): 99295479 (2) Bipolar II disorder major depressive with atypical features Current Visit: No Status: Acute Priority: High Code(s): F31.81 - BIPOLAR II DISORDER SNOMED Code(s): 30723754 (3) History of seizure Current Visit: No Status: Acute Code(s): Z87.898 - PERSONAL HISTORY OF OTHER SPECIFIED CONDITIONS SNOMED Code(s): 5047214870 (4) Polysubstance abuse Current Visit: No Status: Acute Priority: Medium Code(s): F19.10 - OTHER PSYCHOACTIVE SUBSTANCE ABUSE, UNCOMPLICATED SNOMED Code(s): 350676144 Plan: 1. Continue with therapy and trying to get the patient on the right medications for her bipolar. 2. Please contact me if patient has bleeding again
--- NOTE | 2024-07-05 12:18 | P.PN ---
Progress Note - Text Progress Note Date: 07/05/24 Interval history: Patient was seen today wandering the hallways agreeable to speak to policy writer sales in the office. Patient appears to have a improvement in her affect today, claims that she is doing a bit better with regards to her mood. Denies any anxiety at this time. She was agreeable to have her Zoloft increased once again tomorrow. She continues to be fairly concrete, more pleasant today. Claims that she did speak with the FIELD CROP FARM WORKER this morning and appreciated the consultation, claims that the bleeding has stopped and she will continue to monitor. Has been going to some groups, claims that she slept fairly last night throughout the night. Claims that her appetite is fair. Denies any auditory or visual hallucinations denies any suicidal homicidal ideations intent or plan. MENTAL STATUS EXAM: General Appearance: Patient appears to mildly overweight, have curly hair, be stated age is alert, directable, and attempts to cooperate. Patient appears to have fair hygiene and grooming. Behavior: Patient is seated without any agitated behavior. Attempts to cooperate Speech: Patient's speech is fluent and nonpressured. Fairly concrete, improving mildly Mood/Affect: Patient reports their mood is improving mildly, affect is congruent and smiling Suicidality/Homicidality: Patient denies having any homicidal ideation intent or plan. Denies any current suicidal ideations intent or plan Perceptions: Patient denies any visual hallucinations and denies any auditory hallucinations Though content/process: There is no evidence of any delusional thought content and thought process is linear and goal-directed. Fairly concrete Memory and concentration: AOX3, grossly intact for the purposes of this session Judgment and insight: poor, improving mildly IMPRESSIONS: bipolar depression non compliance with medication regimen Hx of Polysubstance use disorder (methamphetamine, opioids and crack cocaine) Generalized anxiety disorder Cannabis use disorder Nicotine dependence PLAN: -Patient is admitted under voluntary status to [facility] for stabilization of psychiatric symptoms and safety. Patient has signed adult voluntary form and medication consent and is placed in patient's chart. -Medications : zyprexa 2.5 mg qhs for bipolar depression/sleep, increase Zoloft 50 mg daily for mood/anxiety. These doses can be adjusted in the next few days if tolerated/needed. Collection Coordinator spoke with patient in detail about the risks versus benefits and potential harm to fetus during . Patient decided that the benefits will outweigh the risks of treatment versus nontreatment. -Patient was seen by FIELD CROP FARM WORKER this morning for vaginal bleeding and , appreciate recommendations and will continue to monitor and adjust patient's psychiatric medications as needed. -zyprexa PRN for agitation/aggression -NRT -nicotine patch -SW on board for discharge planning. Encourage patient to participate in groups to work on coping skills. hopeful for discharge wednesday back home if patient is improving.
[2024-07-06] MEDS: SERTRALINE 50 MG TAB PO SCH (08:29)
[2024-07-06 12:04] LABS: Appearance,Urine Clear (Clear); Bacteria,Urine Rare /hpf; Bilirubin,Urine Negative (Negative); Blood,Urine Small (Negative); Color,Urine Colorless; Glucose,Urine (UA) Negative (Negative); Ketones,Urine Negative (Negative); Leukocyte Esterase,Urine Large (Negative); Nitrite,Urine Negative (Negative); Protein,Urine Negative (Negative); RBC,Urine 3 /hpf (0-5); Specific Gravity,Urine 1.006 (1.001-1.035); Squamous Epithelial Cell,Urine 3 /hpf (0-4); Urobilinogen,Urine <2.0 mg/dL (<2.0); WBC,Urine 4 /hpf (0-5)
[2024-07-06 12:07] LABS: Amphetamine Screen,Urine Not Detected (NotDetected); Barbiturate Screen,Urine Not Detected (NotDetected); Benzodiazepines Screen,Urine Not Detected (NotDetected); Cocaine Screen,Urine Not Detected (NotDetected); Methadone Screen, Urine Not Detected (NotDetected); Opiate Screen,Urine Not Detected (NotDetected); Oxycodone Screen, Urine Not Detected (NotDetected); Phencyclidine Screen,Urine Not Detected (NotDetected); Tricyclic Antidepressant,Urine Not Detected (NotDetected); Urn Cannabinoid Scrn Detected (NotDetected)
--- NOTE | 2024-07-06 12:36 | P.PN ---
Progress Note - Text Progress Note Date: 07/06/24 Interval history: Patient was seen today wandering the hallways agreeable to speak to proposal lead writer in the office. Patient was also seen taking part in group today. She claims that she is doing fairly well, improvement in her affect today. Claims that her mood and anxiety have been improving. She states that she has been sleeping relatively well at nighttime with the Zyprexa dose wants to remain on the same dose of both medications. Denied any other related issues denies any more bleeding at this time. States that she has been eating well, not experiencing any side effects today. Has been trying to go to groups taking part in them. Denies any auditory or visual hallucinations denies any suicidal homicidal ideations intent or plan. MENTAL STATUS EXAM: General Appearance: Patient appears to mildly overweight, have curly hair, be stated age is alert, directable, and attempts to cooperate. Patient appears to have fair hygiene and grooming. Behavior: Patient is seated without any agitated behavior. Attempts to cooperate, improving Speech: Patient's speech is fluent and nonpressured. Fairly concrete, improving mildly Mood/Affect: Patient reports their mood is improving mildly, affect is congruent and smiling Suicidality/Homicidality: Patient denies having any homicidal ideation intent or plan. Denies any current suicidal ideations intent or plan Perceptions: Patient denies any visual hallucinations and denies any auditory hallucinations Though content/process: There is no evidence of any delusional thought content and thought process is linear and goal-directed. Fairly concrete, improving mild Memory and concentration: AOX3, grossly intact for the purposes of this session Judgment and insight: improving mildly IMPRESSIONS: bipolar depression non compliance with medication regimen Hx of Polysubstance use disorder (methamphetamine, opioids and crack cocaine) Generalized anxiety disorder Cannabis use disorder Nicotine dependence PLAN: -Patient is admitted under voluntary status to [facility] for stabilization of psychiatric symptoms and safety. Patient has signed adult voluntary form and medication consent and is placed in patient's chart. -Medications : zyprexa 2.5 mg qhs for bipolar depression/sleep, Zoloft 50 mg daily for mood/anxiety. -Patient was seen by FOOD COURT TEAM MEMBER this morning for vaginal bleeding and , appreciate recommendations and will continue to monitor and adjust patient's psychiatric medications as needed. -zyprexa PRN for agitation/aggression -NRT -nicotine patch -SW on board for discharge planning. Encourage patient to participate in groups to work on coping skills. hopeful for discharge tomorrow back home if patient is improving.
[2024-07-06 20:46] VITALS: BP 135/83; PULSE 79; RESP 18; TEMP 97.6
--- NOTE | 2024-07-06 20:53 | US ---
EXAMINATION TYPE: US OB >= 14 wk fetus DATE OF EXAM: 07/06/2024 COMPARISON: 07/03/2024 CLINICAL INDICATION: Female, 28 years old with history of bleeding; patient states clots and cramping worse than before TECHNIQUE: Transabdominal (TA) FINDINGS: GESTATIONAL AGE / DATING Physician Established: Not yet established Dates by LMP: (18weeks/2 days) EDC: 12/05/24 Dates by Current Scan: (18weeks/2 days) EDC: 12/05/24 Beta HCG (if available): Not available at this time SURVEY IUP: Single PLACENTA: Posterior the uterus appears vascular posterior to the placenta PREVIA: No Previa PARI: 12.9cm normal CERVICAL LENGTH (transabdominal: norm > 3.0cm): 3.6cm BIOMETRY PRESENTATION: transverse LIE: Transverse with head maternal L BPD: 4.15cm 18 weeks 5 days HC: 15.06cm 18 weeks 1 days AC: 13.13cm 18weeks / 5 days FL: 2.46cm 17weeks / 4 days ESTIMATED WEIGHT IN GRAMS: 224 grams ESTIMATED WEIGHT IN LBS/OZ: 0 lbs. 8 oz. WEIGHT PERCENTAGE BASED ON ESTABLISHED DATES: 33% HC/AC: 1.15Normal FL/AC: 19% HEART RATE: 142bpm RHYTHM: Normal IMPRESSION: 1. Single intrauterine gestation estimated at 18 weeks 2 days gestation based on current ultrasound m easurements. Cardiac activity measures 142 bpm. [facility], , 07/06/2024 8:50 PM
--- NOTE | 2024-07-07 11:19 | P.DS ---
Providers Date of admission: 07/04/24 05:17 Expected date of discharge: 07/07/24 Attending physician: Benedict Curry MD Consults: 07/04/24 06:17 Consult Physician Routine Consulting Provider: Rodney Ellis Consult Reason/Comments: medical managment Do you want consulting provider notified?: Yes 07/04/24 11:27 Consult Physician Routine Consulting Provider: Ya Palacio Consult Reason/Comments: pt is 18 weeks Do you want consulting provider notified?: Yes 07/04/24 12:24 Consult Physician Routine Consulting Provider: Alfredo Coles Consult Reason/Comments: history of seizures. stopped medications Do you want consulting provider notified?: Yes Primary care physician: Breonna Augustin - Discharge Diagnosis(es) (1) Bipolar disorder current episode depressed Current Visit: Yes Status: Acute Priority: High (2) Non compliance w medication regimen Current Visit: Yes Status: Acute Priority: High (3) Polysubstance (excluding opioids) dependence Current Visit: Yes Status: Acute Priority: High (4) Generalized anxiety disorder Current Visit: Yes Status: Acute Priority: Medium (5) Cannabis use disorder Current Visit: Yes Status: Acute Priority: Medium (6) Nicotine dependence Current Visit: Yes Status: Acute Priority: Low (7) Current Visit: Yes Status: Acute Priority: Medium Hospital Course: Admission HPI: Admission note was completed by proposal writer "patient is a 28-year-old single female, unemployed with 1 son, [facility]. Patient is 16 weeks . Patient presented to the hospital with suicidal thoughts, depression off her medications and reportedly 16 weeks . Patient was seen by EPS nurse and according to note "Pt. sleeping on stretcher easily aroused to name. Pt Claims SI and increased depression. Main stressor is her . Pt has not taken any meds since she found out she was approximately 14 weeks ago. Pt is 18wks . Pt. agrees to voulantary admission." Patient seen and evaluated today by proposal writer for assessment. patient was agreeable to speak to proposal writer in office. Patient states that she was having suicidal thoughts, claims that she started "bleeding" and came into the hospital for evaluation. States that they did an ultrasound and will be seeing a [employer]. Claims that for the past couple of days she has been having the suicidal thoughts, no specific plan. Claims that it is mainly centered around "being " regarding her stressors. States that her family is not happy that she is and her older son is also not happy. She states that her mood has been a bit depressed however is a bit better since being on the unit. Claims that she is having mild anxiety at this time. Does have a history of bipolar disorder. Claims that her sleep and appetite are fair. Claims that she has been off her psychiatric medications for about a month now and was previously discharged on Zyprexa and Zoloft. Has not been going to [facility] for follow-up. Claims that she smokes marijuana occasionally. Claims that she uses vape nicotine products daily. Patient denies any current suicidal or homicidal ideations intent or plan. At this time patient denies any auditory or visual hallucinations. Patient denies any flight of ideas racing thoughts and increased in goal directed behavior." Hospital course: Upon admission to the unit patient was directable and agreeable to commence treatment and signed adult voluntary form. Patient was initially depressed suicidal, however with time and treatment patient got along well with other patients on the unit and followed unit protocol. Patient was compliant with the medications and denied any side effects throughout hospital course. Patient was started on Zyprexa low-dose 2.5 mg nightly for bipolar disorder/depression/sleep, Zoloft 50 mg daily for mood/anxiety. Due to patient being , we discussed the risks of possible teratogenicity of the medications, the need for continuing monitoring of side effects symptoms and also regular [employer] follow-up, we also discussed the risks benefits and alternatives of treatment and she verbally understood and agreed and wanted to continue on with medications at this time to her . Patient spoke of her stressors and engaged in therapy both group/activity therapy. Patient was also seen by medical team for history and physical exam. Throughout the course of the hospitalization patient gradually improved with regards to mood, anxiety, mood lability, suicidal thoughts, sleep and returned back to their baseline level of functioning. On the day of discharge patient denied any suicidal or homicidal ideations intent or plan denied any auditory or visual hallucinations. Patient endorsed wanting to live for their health, to be a mother and family. The patient denied any access to guns or weapons. Patient denied any paranoia and did not endorse any delusions. Patient does have a significant history of substance abuse and was counseled on abstaining from all substances including alcohol and marijuana. Patient elected to do outpatient substance use treatment program through their outpatient provider. Patient claims that she is not actively using recreational drugs except for cannabis and has a history of methamphetamine and cocaine use patient was also counseled on the medications and need for regular compliance and was encouraged to follow-up with their outpatient appointment for mental health and also for primary care. Prior to discharge a family meeting will be arranged by child welfare social worker to answer any questions and ensure safety upon discharge incuding making sure that guns/weapons are either removed from the home or locked away. Mental status exam: General Appearance: Patient appears to be has curly hair, stated age is alert, pleasant, and cooperative. Patient is in no acute distress and has improved hygiene and grooming Behavior: Patient is calmly seated without any agitated behavior. Speech: Patient's speech is fluent and nonpressured. Mood/Affect: Patient reports their mood is "good", affect is congruent and euthymic. Suicidality/Homicidality: Patient denies having any suicidal or homicidal ideation intent or plan. Perceptions: Patient denies any auditory or visual hallucinations. Though content/process: There is no evidence of any delusional thought content and thought process is linear and goal-directed. More future oriented Memory and concentration: AOX3, grossly intact for the purposes of this session. Can spell "WORLD" backwards correctly. Judgment and insight: improved with guarded prognosis Impression: Bipolar disorder current episode depressed Noncompliance with medication regimen Polysubstance use disorder Generalized anxiety disorder Cannabis use disorder Nicotine dependence Plan: -Continue with discharge today as patient has improved and stabilized psychiatrically and is not currently an imminent threat to themself and/or others. Patient will remain at chronically elevated risk for harm to self and/or others due to their impulsivity and history of significant substance abuse. -Continue medications: Zyprexa 2.5 mg nightly for bipolar disorder/depression/sleep, Zoloft 50 mg daily for mood/anxiety -Patient was counseled on the need for medication compliance and appropriate fol low-up at mental health and also primary care for medical issues. Patient verbalized understanding and agreed. -Social work to help coordinate patients discharge today. also to ensure safe home environment that guns/weapons are either removed from the home or locked away. Social work also to arrange for patients follow up appointments with [facility] for psychiatric care along with follow up with primary care provider. -Patient counseled on abstaining from recreational drugs and marijuana and alcohol. Was informed/educated on the adverse effects on their physical and mental health. Patient verbally agreed and understood. -Patient was instructed to return to the hospital or seek immediate medical care if their psychiatric or medical symptoms do worsen or reoccur. Allergies Allergy/AdvReac Type Severity Reaction Status Date / Time carrot Allergy Anaphylaxis Verified 07/04/24 13:59 parsley Allergy Anaphylaxis Verified 07/04/24 13:59 quetiapine [From Seroquel] Allergy Anaphylaxis Verified 07/04/24 13:59 walnut Allergy Rash/Hives Verified 07/04/24 13:59 aripiprazole [From Abilify] AdvReac Unknown Verified 07/04/24 13:59 lamotrigine [From Lamictal] AdvReac Unknown Verified 07/04/24 13:59 Laboratory Results WBC 9.93 10*3/uL (4.50-10.00) 07/05/24 07:19 RBC 3.80 10*6/uL (4.10-5.20) L 07/05/24 07:19 Hgb 11.5 g/dL (12.0-15.0) L 07/05/24 07:19 Hct 34.1 % (37.2-46.3) L 07/05/24 07:19 MCV 89.7 fL (80.0-97.0) 07/05/24 07:19 MCH 30.3 pg (27.0-32.0) 07/05/24 07:19 MCHC 33.7 g/dL (32.0-37.0) 07/05/24 07:19 Plt Count 263 10*3/uL (140-440) 07/05/24 07:19 MPV 10.0 fL (9.5-12.2) 07/05/24 07:19 Immature Gran % (Auto) 0.4 % 07/05/24 07:19 Neutrophils % 67.2 % 07/05/24 07:19 Lymphocytes % 23.4 % 07/05/24 07:19 Monocytes % 5.8 % 07/05/24 07:19 Eosinophils % 2.7 % 07/05/24 07:19 Basophils % 0.5 % 07/05/24 07:19 Immature Gran # 0.04 10*3/uL (0.00-0.04) 07/05/24 07:19 Neutrophils # 6.67 10*3/uL (1.80-7.70) 07/05/24 07:19 Lymphocytes # 2.32 10*3/uL (0.90-5.00) 07/05/24 07:19 Monocytes # 0.58 10*3/uL (0.20-1.00) 07/05/24 07:19 Eosinophils # 0.27 10*3/uL (0.04-0.35) 07/05/24 07:19 Basophils # 0.05 10*3/uL (0.00-0.10) 07/05/24 07:19 PT 10.2 sec (10.0-12.5) 07/03/24 21:20 INR 0.9 (<1.2) 07/03/24 21:20 APTT 22.4 sec (22.0-30.0) 07/03/24 21:20 Sodium 135 mmol/L (137-145) L 07/05/24 07:19 Potassium 4.1 mmol/L (3.5-5.1) 07/05/24 07:19 Chloride 106 mmol/L (98-107) 07/05/24 07:19 Carbon Dioxide 22 mmol/L (22-30) 07/05/24 07:19 Anion Gap 7 mmol/L 07/05/24 07:19 BUN 5 mg/dL (7-17) L 07/05/24 07:19 Creatinine 0.50 mg/dL (0.52-1.04) L 07/05/24 07:19 Est GFR (CKD-EPI)AfAm >90 (>60 ml/min/1.73 sqM) 07/05/24 07:19 Est GFR (CKD-EPI)NonAf >90 (>60 ml/min/1.73 sqM) 07/05/24 07:19 Glucose 74 mg/dL (74-99) 07/05/24 07:19 Calcium 8.8 mg/dL (8.4-10.2) 07/05/24 07:19 Total Bilirubin 0.7 mg/dL (0.2-1.3) 07/05/24 07:19 AST 23 U/L (14-36) 07/05/24 07:19 ALT 21 U/L (4-34) 07/05/24 07:19 Alkaline Phosphatase 51 U/L (38-126) 07/05/24 07:19 Total Protein 5.8 g/dL (6.3-8.2) L 07/05/24 07:19 Albumin 3.1 g/dL (3.5-5.0) L 07/05/24 07:19 HCG, Quant 72411.6 mIU/mL 07/03/24 21:20 Urine Color Colorless 07/06/24 10:51 Urine Appearance Clear (Clear) 07/06/24 10:51 Urine pH 7.0 (5.0-8.0) 07/06/24 10:51 Ur Specific [place] 1.006 (1.001-1.035) 07/06/24 10:51 Urine Protein Negative (Negative) 07/06/24 10:51 Urine Glucose (UA) Negative (Negative) 07/06/24 10:51 Urine Ketones Negative (Negative) 07/06/24 10:51 Urine Blood Small (Negative) H 07/06/24 10:51 Urine Nitrite Negative (Negative) 07/06/24 10:51 Urine Bilirubin Negative (Negative) 07/06/24 10:51 Urine Urobilinogen <2.0 mg/dL (<2.0) 07/06/24 10:51 Ur Leukocyte Esterase Large (Negative) H 07/06/24 10:51 Urine RBC 3 /hpf (0-5) 07/06/24 10:51 Urine WBC 4 /hpf (0-5) 07/06/24 10:51 Ur Squamous Epith Cells 3 /hpf (0-4) 07/06/24 10:51 Urine Bacteria Rare /hpf (None) H 07/06/24 10:51 Urine HCG, Qual Detected (Not Detectd) 07/03/24 20:30 Urine Opiates Screen Not Detected (NotDetected) 07/06/24 10:51 Ur Oxycodone Screen Not Detected (NotDetected) 07/06/24 10:51 Urine Methadone Screen Not Detected (NotDetected) 07/06/24 10:51 Ur Barbiturates Screen Not Detected (NotDetected) 07/06/24 10:51 U Tricyclic Antidepress Not Detected (NotDetected) 07/06/24 10:51 Ur Phencyclidine Scrn Not Detected (NotDetected) 07/06/24 10:51 Ur Amphetamines Screen Not Detected (NotDetected) 07/06/24 10:51 U Methamphetamines Scrn Not Detected (NotDetected) 07/06/24 10:51 U Benzodiazepines Scrn Not Detected (NotDetected) 07/06/24 10:51 Urine Cocaine Screen Not Detected (NotDetected) 07/06/24 10:51 U Marijuana (THC) Screen Detected (NotDetected) H 07/06/24 10:51 SARS-CoV-2 (PCR) Not Detected (Not Detectd) 07/04/24 00:27 Blood Type O Positive 07/03/24 21:19 Blood Type Recheck O Pos 07/03/24 21:19 Bld Type Recheck Status [facility] ONLY 07/03/24 21:19 Vital Signs Temp 97.6 F 07/06/24 20:46 Pulse 79 07/06/24 20:46 Resp 18 07/06/24 20:46 BP 135/83 07/06/24 20:46 Pulse Ox 98 07/06/24 20:46 FiO2 Patient Condition at Discharge: Stable Plan - Discharge Summary New Discharge Prescriptions: New Folic Acid 1 mg PO DAILY tab Acetaminophen Tab [Tylenol] 650 mg PO Q4HR PRN tab PRN Reason: Mild Pain (Scale 1 To 3) Sertraline [Zoloft] 50 mg PO DAILY 30 Days #30 tab OLANZapine [ZyPREXA] 2.5 mg PO HS 30 Days #30 tab Continue Folic Acid 1 mg PO DAILY 30 Days #30 tab Discontinued OLANZapine [ZyPREXA] 2.5 mg PO HS 30 Days #30 tab levETIRAcetam [Keppra] 500 mg PO Q12HR 30 Days #30 tab Sertraline [Zoloft] 50 mg PO HS 30 Days #30 tab Discharge Medication List Acetaminophen Tab [Tylenol] 650 mg PO Q4HR PRN tab 07/07/24 [Rx] Folic Acid 1 mg PO DAILY tab 07/07/24 [Rx] Folic Acid 1 mg PO DAILY 30 Days #30 tab 07/07/24 [Rx] OLANZapine [ZyPREXA] 2.5 mg PO HS 30 Days #30 tab 07/07/24 [Rx] Sertraline [Zoloft] 50 mg PO DAILY 30 Days #30 tab 07/07/24 [Rx] Follow up Appointment(s)/Referral(s): Breonna Augustin MD [Primary Care Provider] - 1-2 days [facility] [NON-STAFF] - 07/10/24 9:30 am (9:30 with Incident Engineer) Patient Instructions/Handouts: Bipolar Disorder (DC), Anxiety (ED) Activity/Diet/Wound Care/Special Instructions: [facility] Discharge Info Avoid the use of street drugs and alcohol. Take all medications as prescribed. When you are in need of refills on your medications, please contact your outpatient medical provider and/or outpatient psychiatrist. Please go to your scheduled outpatient appointments for aftercare treatment. If symptoms return or become worse, call the crisis line at or and/or visit the nearest emergency room for assistance. National Suicide and Crisis Lifeline - call or text 145 Discharge Disposition: HOME SELF-CARE
== END 2024-07-07 11:59 | disposition home or self-care (01) | DRG 566 ==
LOC: EC 20:06 → 3MHU 07-04 05:17
PROVIDERS: ADMIT Psychiatry & Neurology Psychiatry; ATTEND Psychiatry & Neurology Psychiatry
DX: O99.342 Other mental disorders complicating pregnancy, second trimester (principal); O44.52 Low lying placenta with hemorrhage, second trimester; Z59.01 Sheltered homelessness; G40.909 Epilepsy, unspecified, not intractable, without status epilepticus; F31.30 Bipolar disorder, current episode depressed, mild or moderate severity, unspecified; O99.352 Diseases of the nervous system complicating pregnancy, second trimester; R45.851 Suicidal ideations; O99.322 Drug use complicating pregnancy, second trimester; F12.10 Cannabis abuse, uncomplicated; F14.10 Cocaine abuse, uncomplicated; F11.10 Opioid abuse, uncomplicated; F15.10 Other stimulant abuse, uncomplicated; J45.909 Unspecified asthma, uncomplicated; O99.332 Smoking (tobacco) complicating pregnancy, second trimester; F17.290 Nicotine dependence, other tobacco product, uncomplicated; O99.512 Diseases of the respiratory system complicating pregnancy, second trimester; Z3A.18 18 weeks gestation of pregnancy; F41.1 Generalized anxiety disorder; Z56.0 Unemployment, unspecified; T43.226A Underdosing of selective serotonin reuptake inhibitors, initial encounter; T43.596A Underdosing of other antipsychotics and neuroleptics, initial encounter; Z91.148 Patient's other noncompliance with medication regimen for other reason; Z79.899 Other long term (current) drug therapy; Z91.51 Personal history of suicidal behavior; Z97.5 Presence of (intrauterine) contraceptive device; Z88.8 Allergy status to other drugs, medicaments and biological substances; Z71.51 Drug abuse counseling and surveillance of drug abuser
CPT/HCPCS: 36415; 76805; 80053; 80306; 81001; 81025; 84132; 84702; 85025; 85610; 85730; 86900; 86901; 87635; 96360; 99285

== ENCOUNTER 2024-07-20 00:08 | Emergency (ER) | payer OTHER ==
[2024-07-20 00:14] VITALS: RESP 18
[2024-07-20] MEDS: MORPHINE SULFATE 4 MG/ML SYRINGE IVP STA (00:40)
[2024-07-20] MEDS: SODIUM CHLORIDE 0.9% 1,000 ML IV ONE (00:41)
[2024-07-20 01:01] LABS: Basophils # (A) 0.11 10*3/uL (0.00-0.10); Basophils % (A) 0.5 %; Eosinophils # (A) 0.01 10*3/uL (0.04-0.35); HCT 37.1 % (37.2-46.3); HGB 13.1 g/dL (12.0-15.0); Lymphocytes # (A) 0.53 10*3/uL (0.90-5.00); Lymphocytes % (A) 2.2 %; MCHC 35.3 g/dL (32.0-37.0); MCV 87.9 fL (80.0-97.0); Mean Platelet Volume 9.6 fL (9.5-12.2); Monocytes # (A) 1.02 10*3/uL (0.20-1.00); Monocytes % (A) 4.3 %; Neutrophils # (A) 21.98 10*3/uL (1.80-7.70); Neutrophils % (A) 92.2 %; Platelet Count 263 10*3/uL (140-440); RBC 4.22 10*6/uL (4.10-5.20); RDW 13.5 % (11.5-14.5); WBC 23.85 10*3/uL (4.50-10.00)
[2024-07-20 01:13] LABS: INR 0.9 (<1.2); Partial Thromboplastin Time 23.4 sec (22.0-30.0); Prothrombin Time 10.5 sec (10.0-12.5)
[2024-07-20 01:25] LABS: ALT 17 U/L (4-34); AST 18 U/L (14-36); African American GFR (CKD) >90 (>60 ml/min/1.73 sqM); Albumin 3.4 g/dL (3.5-5.0); Alkaline Phosphatase 84 U/L (38-126); Anion Gap 11 mmol/L; Blood Urea Nitrogen 5 mg/dL (7-17); Carbon Dioxide 17 mmol/L (22-30); Chloride 102 mmol/L (98-107); Glucose 165 mg/dL (74-99); Non-African American GFR(CKD) >90 (>60 ml/min/1.73 sqM); Potassium 3.6 mmol/L (3.5-5.1); Sodium 130 mmol/L (137-145); Total Bilirubin 0.8 mg/dL (0.2-1.3); Total Protein 6.1 g/dL (6.3-8.2)
[2024-07-20 01:40] LABS: HCG,Quantitative Serum 11464.2 mIU/mL
--- NOTE | 2024-07-20 01:45 | ED ---
Female Urogenital HPI - General Chief complaint: Vaginal Bleeding Stated complaint: Vaginal Bleeding - 17 wks Time Seen by Provider: 07/20/24 00:15 Source: patient Mode of arrival: ambulatory Limitations: no limitations - History of Present Illness Initial comments: 28-year-old female G2, P1 currently about 17 weeks presenting with chief complaint of vaginal bleeding. Patient reports that she has had vaginal bleeding and cramping for the last 3 days. She states that she had a miscarriage at home and has come here for further evaluation. She has not been seen by [facility]NAGEMENT [facility]. No nausea or vomiting. No fever. Pain is even across the lower abdomen. - Related Data Previous Rx's Medication Instructions Recorded Acetaminophen Tab [Tylenol] 650 mg PO Q4HR PRN tab 07/07/24 Folic Acid 1 mg PO DAILY tab 07/07/24 Folic Acid 1 mg PO DAILY 30 Days #30 tab 07/07/24 OLANZapine [ZyPREXA] 2.5 mg PO HS 30 Days #30 tab 07/07/24 Sertraline [Zoloft] 50 mg PO DAILY 30 Days #30 tab 07/07/24 Allergies Allergy/AdvReac Type Severity Reaction Status Date / Time carrot Allergy Anaphylaxis Verified 07/20/24 00:10 parsley Allergy Anaphylaxis Verified 07/20/24 00:10 quetiapine [From Seroquel] Allergy Anaphylaxis Verified 07/20/24 00:10 walnut Allergy Rash/Hives Verified 07/20/24 00:10 aripiprazole [From Abilify] AdvReac Unknown Verified 07/20/24 00:10 lamotrigine [From Lamictal] AdvReac Unknown Verified 07/20/24 00:10 Review of Systems ROS Statement: Those systems with pertinent positive or pertinent negative responses have been documented in the HPI. ROS Other: All systems not noted in ROS Statement are negative. Past Medical History Past Medical History: Asthma, Pneumonia, Seizure Disorder Additional Past Medical History / Comment(s): pt states she had a seizure x7 days ago (01/23/2024) History of Any Multi-Drug Resistant Organisms: None Reported Past Surgical History: No Surgical Hx Reported Past Anesthesia/Blood Transfusion Reactions: No Reported Reaction Past Psychological History: Anxiety, Depression Smoking Status: Current every day smoker Past Alcohol Use History: Occasional Past Drug Use History: Cocaine, Heroin, Marijuana, Methamphetamine, Opiates, Prescription Drug Abuse - Past Family History Mother Family Medical History: No Reported History Additional Family Medical History / Comment(s): Migranes Father Family Medical History: Diabetes Mellitus, Hypertension Additional Family Medical History / Comment(s): Neuropathy General Exam Limitations: no limitations General appearance: alert, in no apparent distress Head exam: Present: atraumatic, normocephalic, normal inspection Eye exam: Present: normal appearance, EOMI Neck exam: Present: normal inspection. Absent: meningismus Respiratory exam: Present: normal lung sounds bilaterally. Absent: respiratory distress, wheezes, rales, rhonchi, stridor Cardiovascular Exam: Present: normal rhythm, tachycardia, normal heart sounds. Absent: systolic murmur, diastolic murmur, rubs, gallop, clicks GI/Abdominal exam: Present: soft, tenderness. Absent: distended, guarding, rebound, rigid Neurological exam: Present: alert, oriented X3 Psychiatric exam: Present: normal affect, normal mood Skin exam: Present: warm, dry, normal color Course Vital Signs 07/20/24 07/20/24 00:11 03:55 Temperature 98.0 F 98.2 F Pulse Rate 109 H 64 Respiratory 18 18 Rate Blood Pressure 127/85 114/60 O2 Sat by Pulse 98 100 Oximetry Medical Decision Making - Medical Decision Making Was pt. sent in by a medical professional or institution (SALLY Jackson, SALES CLERK SUPERVISOR, urgent care, hospital, or [facility]...) When possible be specific @ -No Did you speak to anyone other than the patient for history (EMS, parent, family, police, friend...)? What history was obtained from this source @ -No Did you review nursing and triage notes (agree or disagree)? Why? @ -I reviewed and agree with nursing and triage notes Were old charts reviewed (outside hosp., previous admission, EMS record, old EKG, old radiological studies, urgent care reports/EKG's, [facility] records)? Report findings @ -No old charts were reviewed Differential Diagnosis (chest pain, altered mental status, abdominal pain women, abdominal pain men, vaginal bleeding, weakness, fever, dyspnea, syncope, headache, dizziness, GI bleed, back pain, seizure, CVA, palpatations, mental health, musculoskeletal)? @ -MDM Differential Vaginal Bleeding: Spontaneous , threatened , molar , ectopic , bloody show, incompetent cervix, abruptioplacenta, placenta previa, uterine rupture, dysfunctional uterine bleeding, hemorrhage, uterine fibroids. ... This is not meant to be an all-inclusive list EKG interpreted by me (3pts min.). @ -As above X-rays interpreted by me (1pt min.). @ -None done CT interpreted by me (1pt min.). @ -None done U/S interpreted by me (1pt. min.). @ -Ultrasound shows uterus is enlarged measuring 14.5 x 8.4 x 10.4 cm. The endometrial stripe is prominent in the lower uterine segment measuring up to 3.4 cm in AP diameter. The endometrial stripe at the fundus measures 1 cm. Slightly prominent vascular flow suggested posteriorly in the endometrium. Retained products of conception are difficult to exclude given this appearance What testing was considered but not performed or refused? (CT, X-rays, U/S, labs)? Why? @ -None What meds were considered but not given or refused? Why? @ -None Did you discuss the management of the patient with other professionals (professionals i.e. , PA, SALES CLERK SUPERVISOR, lab, RT, psych nurse, licensed master social worker, travel insurance agent, teacher, financial administration officer, classification case manager)? Give summary @ -No Was smoking cessation discussed for >3mins.? @ -No Was critical care preformed (if so, how long)? @ -No Were there social determinants of health that impacted care today? How? (Homelessness, low income, unemployed, alcoholism, drug addiction, transportation, low edu. Level, literacy, decrease access to med. care, [facility], rehab)? @ -No Was there de-escalation of care discussed even if they declined (Discuss DNR or withdrawal of care, Hospice)? DNR status @ -No What co-morbidities impacted this encounter? (DM, HTN, Smoking, COPD, CAD, Cancer, CVA, ARF, Chemo, Hep., AIDS, mental health diagnosis, sleep apnea, morbid obesity)? @ -None Was patient admitted / discharged? Hospital course, mention meds given and route, prescriptions, significant lab abnormalities, going to OR and other per tinent info. @ -28-year-old female presenting with chief complaint of vaginal bleeding. Patient is about 18 weeks . States that she had a miscarriage at home. History and physical examination are conducted. Hemoglobin is stable at 13.1. hCG 11,464.2. Urine shows large blood which is to be expected given her vaginal bleeding. She is blood type O+. Ultrasound shows no IUP. There is an enlarged uterus and a thickened endometrial stripe. It is difficult to exclude retained products of conception at this time. Patient's vital signs are stable. She is educated on today's findings. She will follow-up with [facility]. Follow-up with PCP. Report back to ER with any new or worsening symptoms. Discussed return parameters and answered all questions. Patient conveyed verbal understanding and agreed to the plan. I discussed this case in detail with my attending Dr. Turk Undiagnosed new problem with uncertain prognosis? @ -No Drug Therapy requiring intensive monitoring for toxicity (Heparin, Nitro, Insulin, Cardizem)? @ -No Were any procedures done? @ -No Diagnosis/symptom? @ -Spontaneous Acute, or Chronic, or Acute on Chronic? @ -Acute Uncomplicated (without systemic symptoms) or Complicated (systemic symptoms)? @ -Uncomplicated Side effects of treatment? @ -No Exacerbation, Progression, or Severe Exacerbation? @ -No Poses a threat to life or bodily function? How? (Chest pain, USA, IA, pneumonia, PE, COPD, DKA, ARF, appy, cholecystitis, CVA, Diverticulitis, Homicidal, Suicidal, threat to staff... and all critical care pts) @ -No immediate threat at this time - Lab Data Result diagrams: 07/20/24 00:40 07/20/24 00:40 Lab Results 07/20/24 07/20/24 07/20/24 Range/Units 00:40 00:40 00:40 WBC 23.85 H (4.50-10.00) 10*3/uL RBC 4.22 (4.10-5.20) 10*6/uL Hgb 13.1 (12.0-15.0) g/dL Hct 37.1 L (37.2-46.3) % MCV 87.9 (80.0-97.0) fL MCH 31.0 (27.0-32.0) pg MCHC 35.3 (32.0-37.0) g/dL Plt Count 263 (140-440) 10*3/uL MPV 9.6 (9.5-12.2) fL Immature Gran % (Auto) 0.8 % Neutrophils % 92.2 % Lymphocytes % 2.2 % Monocytes % 4.3 % Eosinophils % 0.0 % Basophils % 0.5 % Immature Gran # 0.20 H (0.00-0.04) 10*3/uL Neutrophils # 21.98 H (1.80-7.70) 10*3/uL Lymphocytes # 0.53 L (0.90-5.00) 10*3/uL Monocytes # 1.02 H (0.20-1.00) 10*3/uL Eosinophils # 0.01 L (0.04-0.35) 10*3/uL Basophils # 0.11 H (0.00-0.10) 10*3/uL PT 10.5 (10.0-12.5) sec INR 0.9 (<1.2) APTT 23.4 (22.0-30.0) sec Sodium 130 L (137-145) mmol/L Potassium 3.6 (3.5-5.1) mmol/L Chloride 102 (98-107) mmol/L Carbon Dioxide 17 L (22-30) mmol/L Anion Gap 11 mmol/L BUN 5 L (7-17) mg/dL Creatinine 0.50 L (0.52-1.04) mg/dL Est GFR (CKD-EPI)AfAm >90 (>60 ml/min/1.73 sqM) Est GFR (CKD-EPI)NonAf >90 (>60 ml/min/1.73 sqM) Glucose 165 H (74-99) mg/dL Calcium 9.0 (8.4-10.2) mg/dL Total Bilirubin 0.8 (0.2-1.3) mg/dL AST 18 (14-36) U/L ALT 17 (4-34) U/L Alkaline Phosphatase 84 (38-126) U/L Total Protein 6.1 L (6.3-8.2) g/dL Albumin 3.4 L (3.5-5.0) g/dL HCG, Quant 48717.2 mIU/mL Urine Color Urine Appearance (Clear) Urine pH (5.0-8.0) Ur Specific [place] (1.001-1.035) Urine Protein (Negative) Urine Glucose (UA) (Negative) Urine Ketones (Negative) Urine Blood (Negative) Urine Nitrite (Negative) Urine Bilirubin (Negative) Urine Urobilinogen (<2.0) mg/dL Ur Leukocyte Esterase (Negative) Urine RBC (0-5) /hpf Urine WBC (0-5) /hpf Urine Mucus (None) /hpf Blood Type Blood Type Recheck Bld Type Recheck Status 07/20/24 07/20/24 Range/Units 00:40 01:11 WBC (4.50-10.00) 10*3/uL RBC (4.10-5.20) 10*6/uL Hgb (12.0-15.0) g/dL Hct (37.2-46.3) % MCV (80.0-97.0) fL MCH (27.0-32.0) pg MCHC (32.0-37.0) g/dL Plt Count (140-440) 10*3/uL MPV (9.5-12.2) fL Immature Gran % (Auto) % Neutrophils % % Lymphocytes % % Monocytes % % Eosinophils % % Basophils % % Immature Gran # (0.00-0.04) 10*3/uL Neutrophils # (1.80-7.70) 10*3/uL Lymphocytes # (0.90-5.00) 10*3/uL Monocytes # (0.20-1.00) 10*3/uL Eosinophils # (0.04-0.35) 10*3/uL Basophils # (0.00-0.10) 10*3/uL PT (10.0-12.5) sec INR (<1.2) APTT (22.0-30.0) sec Sodium (137-145) mmol/L Potassium (3.5-5.1) mmol/L Chloride (98-107) mmol/L Carbon Dioxide (22-30) mmol/L Anion Gap mmol/L BUN (7-17) mg/dL Creatinine (0.52-1.04) mg/dL Est GFR (CKD-EPI)AfAm (>60 ml/min/1.73 sqM) Est GFR (CKD-EPI)NonAf (>60 ml/min/1.73 sqM) Glucose (74-99) mg/dL Calcium (8.4-10.2) mg/dL Total Bilirubin (0.2-1.3) mg/dL AST (14-36) U/L ALT (4-34) U/L Alkaline Phosphatase (38-126) U/L Total Protein (6.3-8.2) g/dL Albumin (3.5-5.0) g/dL HCG, Quant mIU/mL Urine Color Yellow Urine Appearance Clear (Clear) Urine pH 6.0 (5.0-8.0) Ur Specific [place] 1.012 (1.001-1.035) Urine Protein Trace H (Negative) Urine Glucose (UA) 1+ H (Negative) Urine Ketones Negative (Negative) Urine Blood Large H (Negative) Urine Nitrite Negative (Negative) Urine Bilirubin Negative (Negative) Urine Urobilinogen <2.0 (<2.0) mg/dL Ur Leukocyte Esterase Moderate H (Negative) Urine RBC >182 H (0-5) /hpf Urine WBC 24 H (0-5) /hpf Urine Mucus Few H (None) /hpf Blood Type O Positive Blood Type Recheck O Pos Bld Type Recheck Status No Disposition Clinical Impression: Spontaneous Disposition: HOME SELF-CARE Condition: Good Instructions (If sedation given, give patient instructions): Miscarriage (ED) Additional Instructions: Follow-up with [facility]. Report back to ER with any new or worsening symptoms. Is patient prescribed a controlled substance at d/c from ED?: No Referrals: Breonna Augustin MD [Primary Care Provider] - 1-2 days Ya Palacio DO [Doctor of Osteopathic Medicine] - 1-2 days Time of Disposition: 03:45
[2024-07-20 01:53] LABS: Appearance,Urine Clear (Clear); Bilirubin,Urine Negative (Negative); Blood,Urine Large (Negative); Color,Urine Yellow; Glucose,Urine (UA) 1+ (Negative); Ketones,Urine Negative (Negative); Leukocyte Esterase,Urine Moderate (Negative); Mucus,Urine Few /hpf; Nitrite,Urine Negative (Negative); Protein,Urine Trace (Negative); RBC,Urine >182 /hpf (0-5); Specific Gravity,Urine 1.012 (1.001-1.035); Urobilinogen,Urine <2.0 mg/dL (<2.0); WBC,Urine 24 /hpf (0-5)
--- NOTE | 2024-07-20 03:31 | US ---
EXAM: US Pelvis Transabdominal, Complete CLINICAL HISTORY: Pain, bleeding and reported spontaneous of 19 week fetus immediately prior to admission to the emergency department with bleeding and cramping. TECHNIQUE: Real-time complete transabdominal pelvic ultrasound with image documentation. COMPARISON: No relevant prior studies available. FINDINGS: Uterus/cervix: The uterus is enlarged measuring 14.5 x 8.4 x 10.4 cm. The endometrial stripe is prominent in the lower uterine segment, measuring up to 3.4 cm in AP diameter. The endometrial stripe at the fundus measures 1 cm. Slightly prominent vascular flow suggested posteriorly in the endometrium. Right ovary: Simple follicle in the right ovary measuring 9 x 10 mm. The right ovary measures 2.7 x 3.2 x 2.4 cm. No adnexal mass. Normal blood flow. Left ovary: The left ovary measures 3 x 2.1 x 3.1 cm. No adnexal mass. Free fluid: No free fluid. Bladder: Unremarkable as visualized. Wall is normal thickness for degree of distention. IMPRESSION: The uterus is enlarged measuring 14.5 x 8.4 x 10.4 cm. The endometrial stripe is prominent in the lower uterine segment, measuring up to 3.4 cm in AP diameter. The endometrial stripe at the fundus measures 1 cm. Slightly prominent vascular flow suggested posteriorly in the endometrium. Retained products of conception are difficult to exclude given this appearance.
[2024-07-20 03:56] VITALS: BP 114/60; PULSE 64; TEMP 98.2
== END 2024-07-20 03:56 | disposition home or self-care (01) ==
LOC: EC 00:08
DX: O03.9 Complete or unspecified spontaneous abortion without complication (principal); O99.332 Smoking (tobacco) complicating pregnancy, second trimester; F17.200 Nicotine dependence, unspecified, uncomplicated; Z91.018 Allergy to other foods; Z88.8 Allergy status to other drugs, medicaments and biological substances
CPT/HCPCS: 36415; 86900; 86901; 80053; 85025; 85610; 85730; 81001; 84702; 87086; 76856; 99284; 96374; 96361; J2270